=== PATIENT | female | born 1950 | race Caucasian/White ===

== ENCOUNTER 2018-06-25 08:06 | Emergency (ER) | payer OTHER ==
--- OUTSIDE RECORDS SUMMARY | 2018-06-25 08:09 | XMS REPORT | Clinical Summary ---
:1950 Author Organization [facility] Address [address] [place] [place] [address] Care Team Providers Name Role Phone Carlos Primary Care Provider Allergies Active Allergy Reactions Severity Noted Date Comments Other Converted from ECW; Sulfa - ; Sulfa (Sulfonamide Rash Low 12/28/2016 Antibiotics) Medications Medication Sig Dispensed Refills Start End Date Status Date evolocumab (REPATHA Inject 140 mg 0 Active SURECLICK) 140 mg/mL subcutaneously PnIj once every 2 weeks. biotin 1 mg tablet Take 1,000 mcg by 0 Active mouth daily. amitriptyline (ELAVIL) Take 25 mg by 0 Active 25 MG tablet mouth nightly. hydroCHLOROthiazide Take 25 mg by 0 Active (HYDRODIURIL) 25 MG mouth daily. tablet cholecalciferol, vitamin Take 2,000 Units 0 Active D3, 2,000 unit Tab by mouth daily. multivitamin per tablet Take 1 tablet by 0 Active mouth daily. cyanocobalamin (VITAMIN Take 1,000 mcg by 0 Active B-12) 1000 MCG tablet mouth daily. aspirin 81 MG EC tablet Take 81 mg by 0 Active mouth daily. pantoprazole (PROTONIX) Take 40 mg by 0 Active 40 MG tablet mouth daily. rosuvastatin (CRESTOR) Take 40 mg by 0 Active 40 MG tablet mouth daily. carvedilol (COREG) 25 MG Take 25 mg by 0 Active tablet mouth 2 (two) times daily with breakfast and dinner. metFORMIN (GLUCOPHAGE) Take 1,000 mg by 0 Active 1000 MG tablet mouth 2 (two) times daily with breakfast and dinner. gemfibrozil (LOPID) 600 Take 600 mg by 0 Active MG tablet mouth 2 (two) times daily. glipiZIDE (GLUCOTROL XL) Take 5 mg by mouth 0 Active 2.5 MG 24 hr tablet daily . ezetimibe (ZETIA) 10 mg Take 10 mg by 0 Active tablet mouth daily. SITagliptin (JANUVIA) 25 Take 25 mg by 0 Active MG tablet mouth daily. clopidogrel (PLAVIX) 75 Take 1 tablet (75 90 tablet 3 01/14/20 mg tablet mg total) by mouth 7 18 daily. Active Problems Problem Noted Date (aortic stenosis) 01/12/2017 Aortic stenosis 01/12/2017 Type II or unspecified type diabetes mellitus without mention of 12/05/2011 complication, not stated as uncontrolled Overview: Converted from ECW Coronary atherosclerosis of [place] coronary artery 12/05/2011 Overview: Converted from ECW Mixed hyperlipidemia 12/05/2011 Overview: Converted from ECW Unspecified essential hypertension 12/05/2011 Overview: Converted from ECW Vitamin D deficiency 11/16/2011 Overview: Converted from ECW UPDATED BY ICD10 SNOMED/IMO UPDATES Myalgia and myositis, unspecified 09/21/2010 Overview: Converted from ECW Chest pain, unspecified 09/08/2010 Overview: Converted from ECW Valvular heart disease Overview: Severe Aortic Stenosis Coronary artery disease Overview: s/p ACB x 3 01/04 Diabetes mellitus Overview: type 2 noninsulin dependent. COPD (chronic obstructive pulmonary disease) Osteoarthritis Obesity Hyperlipidemia Hypertension Severe aortic stenosis Family History Medical History Relation Name Comments Diabetes Brother Diabetes Father Heart attack Father Heart disease Father Hypertension Father Cancer Mother Relation Name Status Comments Brother Father Mother Social History Tobacco Use Types Packs/Day Years Used Date Passive Smoke Exposure - Never Smoker Smokeless Tobacco: Never Used Alcohol Use Drinks/Week oz/Week Comments No Sex Assigned at Date Recorded Not on file Job Start Date Occupation Industry Not on file Not on file Not on file Travel History Travel Start Travel End No recent travel history available. Last Filed Vital Signs Not on file Plan of Treatment Health Maintenance Due Date Last Done Comments INFLUENZA VACCINE 04/30/2018 Implants Implanted Type Area Special Needs Teacher Device Shelf Model / Identifier Expiration Serial / Date Lot Closure Sys Perclose Progl 6fr [id number] - [id number] Cardiovascular N/A: MARKS 05/30/2018 [id number] / Implanted: Qty: 1 on 01/12/2017 by Anuj Escamilla MD [facility] LAB:[facility] DEV / [id number] Salomon Karina 3 Transcatheter Heart Valve Valves N/A: SALOMON 2017 [id number] / Implanted: Qty: 1 on 01/12/2017 by Anuj Escamilla MD [employer] [id number] / Results Not on fileafter 06/24/2017 Insurance Payer Benefit Plan / Group Subscriber ID Type Phone Address MEDICARE MEDICARE A B xxxxxxxxxx Medicare OTHER-COMMERCIAL GENERIC COMMERCIAL xxxxxxxxxx (Work) [phone] Advance Directives For more information, please contact:[address] [phone] Code Status Date Activated Date Inactivated Comments Full Code 01/12/2017 6:10 AM 01/13/2017 5:55 PM This code status was determined by: Patient
--- OUTSIDE RECORDS SUMMARY | 2018-06-25 08:09 | XMS REPORT | Clinical Summary ---
:1950 Author Organization [facility] Address [address] [place] [address] Care Team Providers Name Role Phone Asked, No Pcp Primary Care Provider Unavailable Allergies Active Allergy Reactions Severity Noted Date Comments Sulfa (Sulfonamide Antibiotics) 06/02/2016 Medications Medication Sig Dispensed Refills Start Date End Date Status amitriptyline (ELAVIL) 25 TK 1 T PO D. 4 03/06/2016 Active MG tablet carvedilol (COREG) 25 MG 25 mg 2 (two) 0 05/19/2016 Active tablet times a day with meals. glyBURIDE (DIABETA) 2.5 MG TK 1 T PO QD 1 05/04/2016 Active tablet hydrochlorothiazide TK 1 TABLET BY 1 04/10/2016 Active (HYDRODIURIL) 25 MG tablet MOUTH ONCE A DAY metFORMIN (GLUCOPHAGE) 500 TK 1 T PO TWO 1 04/15/2016 Active MG tablet TIMES A DAY. metFORMIN (GLUCOPHAGE) TK 1 T PO TWO 1 03/07/2016 Active 1000 MG tablet TIMES A DAY. verapamil sustained Take 120 mg by 0 05/19/2016 Active release (CALAN-SR) 120 MG mouth 2 (two) SR tablet times a day. aspirin (ECOTRIN) 81 MG Take 1 tablet 0 Active enteric coated tablet every day by oral route. cholecalciferol, vitamin Vitamin D3 0 Active D3, (VITAMIN D3) 2,000 2,000 unit unit capsule capsule capsule pantoprazole (PROTONIX) 40 Take 40 mg by 0 Active MG EC tablet mouth daily. rosuvastatin (CRESTOR) 20 Take 20 mg by 0 Active MG tablet mouth nightly. biotin 1 mg tablet Take 1,000 mcg 0 Active by mouth daily. cyanocobalamin, vitamin Place 2,500 0 Active B-12, 5,000 mcg tablet, mcg under the sublingual tongue daily. cyanocobalamin 1000 MCG Take 5,000 mcg 0 Active tablet by mouth daily. Active Problems Problem Noted Date Aortic valve stenosis 06/02/2016 Chronic coronary artery disease 06/02/2016 Family History Medical History Relation Name Comments Heart disease Mother Coronary artery disease Other Unspecified Relation Relation Name Status Comments Mother Other Unspecified Relation Social History Tobacco Use Types Packs/Day Years Used Date Never Smoker Alcohol Use Drinks/Week oz/Week Comments No Sex Assigned at Date Recorded Not on file Job Start Date Occupation Industry Not on file Not on file Not on file Travel History Travel Start Travel End No recent travel history available. Last Filed Vital Signs Not on file Plan of Treatment Health Maintenance Due Date Last Done Comments BREAST CANCER SCREENING 01/18/1998 COLON CANCER SCREENING 01/18/1998 SHINGRIX VACCINE (1 of 2) 01/18/1998 ZOSTER VACCINE 2008 PNEUMOCOCCAL POLYSACCHARIDE VACCINE AGE 65 AND OVER 01/18/2013 PNEUMOCOCCAL-13 01/18/2013 INFLUENZA VACCINE 02/28/2018 Results Not on fileafter 06/24/2017 Insurance Payer Benefit Plan / Group Subscriber ID Type Phone Address MEDICARE MEDICARE PART A AND B xxxxxxxxxx Medicare [place], [place] COMMERCIAL MISC MISC COMMERCIAL xxxxxxxxxx Commercial Advance Directives Patient has advance care planning documents on file. For more information, please contact:[place] [address]
--- OUTSIDE RECORDS SUMMARY | 2018-06-25 08:09 | XMS REPORT ---
:1950 Author Organization [facility] Address [address] [place] [address] Care Team Providers Name Role Phone ANY PATRICIA Unavailable Unavailable Problems This patient has no known problems. Allergies, Adverse Reactions, Alerts This patient has no known allergies or adverse reactions. Medications This patient has no known medications. Results Test Description Test Time Test Comments Text Results Atomic Results Result Comments POCT-GLUCOSE METER 2017-01-13 12:53:00 Test Item Value Reference Range Comments POC-GLUCOSE METER (BEAKER) (test 202 mg/dL 70-110 TESTED AT [address] udbx=4769) [facility] [address] POCT-GLUCOSE [id number] 07:45:00 Test Item Value Reference Range Comments POC-GLUCOSE METER (BEAKER) 203 mg/dL 70-110 TESTED AT [address] (test zamf=6820) [facility] [address] BASIC METABOLIC [id number] 02:30:00 Test Item Value Reference Range Comments SODIUM (BEAKER) (test 141 meq/L 136-145 ljax=334) POTASSIUM (BEAKER) (test 4.5 meq/L 3.5-5.1 nhgk=139) CHLORIDE (BEAKER) (test 104 meq/L 98-107 iakg=091) CO2 (BEAKER) (test 26 meq/L 22-29 nsdr=392) BLOOD UREA NITROGEN 19 mg/dL 7-21 (BEAKER) (test hkyy=933) CREATININE (BEAKER) (test 0.99 mg/dL 0.57-1.25 yhbb=665) GLUCOSE RANDOM (BEAKER) 175 mg/dL 70-105 (test dmop=727) CALCIUM (BEAKER) (test 9.9 mg/dL 8.4-10.2 kmoi=318) EGFR (BEAKER) (test 56 mL/min/1.73 sq m ESTIMATED GFR IS NOT ebrx=0567) ACCURATE CREATININE CLEARANCE IN PREDICTING GLOMERULAR FILTRATION RATE. ESTIMATED GFR IS NOT APPLICABLE FOR DIALYSIS PATIENTS. CBC W/PLT COUNT & AUTO [id number] 02:18:00 Test Item Value Reference Range Comments WHITE BLOOD CELL COUNT (BEAKER) (test undp=546) 14.2 K/ L 4.0-10.0 RED BLOOD CELL COUNT (BEAKER) (test wmdf=921) 4.04 M/ L 4.00-5.00 HEMOGLOBIN (BEAKER) (test zkab=490) 11.6 GM/DL 12.0-15.0 HEMATOCRIT (BEAKER) (test rduj=003) 36.7 % 36.0-45.0 MEAN CORPUSCULAR VOLUME (BEAKER) (test fiub=297) 90.7 fL 82.0-99.0 MEAN CORPUSCULAR HEMOGLOBIN (BEAKER) (test 28.7 pg 27.0-33.0 fdyj=636) MEAN CORPUSCULAR HEMOGLOBIN CONC (BEAKER) (test 31.6 GM/DL 32.0-36.0 vjjt=253) RED CELL DISTRIBUTION WIDTH (BEAKER) (test 16.2 % 10.3-14.2 miis=128) PLATELET COUNT (BEAKER) (test ublz=776) 277 K/CU MM 150-430 MEAN PLATELET VOLUME (BEAKER) (test oneg=027) 7.8 fL 6.5-10.5 NUCLEATED RED BLOOD CELLS (BEAKER) (test 0 /100 WBC 0-0 rqel=182) NEUTROPHILS RELATIVE PERCENT (BEAKER) (test 85 % vwki=942) LYMPHOCYTES RELATIVE PERCENT (BEAKER) (test 8 % oxyo=555) MONOCYTES RELATIVE PERCENT (BEAKER) (test 7 % jfur=341) EOSINOPHILS RELATIVE PERCENT (BEAKER) (test 0 % azmx=180) BASOPHILS RELATIVE PERCENT (BEAKER) (test 0 % mhrj=643) NEUTROPHILS ABSOLUTE COUNT (BEAKER) (test 12.10 K/ L 1.80-8.00 nxtv=573) LYMPHOCYTES ABSOLUTE COUNT (BEAKER) (test 1.12 K/ L 1.48-4.50 empj=771) MONOCYTES ABSOLUTE COUNT (BEAKER) (test 0.95 K/ L 0.00-1.30 fuvm=917) EOSINOPHILS ABSOLUTE COUNT (BEAKER) (test 0.04 K/ L 0.00-0.50 fshn=184) BASOPHILS ABSOLUTE COUNT (BEAKER) (test 0.02 K/ L 0.00-0.20 xxnl=060) 0.00POCT-GLUCOSE [id number] 22:03:00 Test Item Value Reference Range Comments POC-GLUCOSE METER (BEAKER) 273 mg/dL 70-110 TESTED AT [address] (test eono=4496) [facility] [address] POCT-GLUCOSE [id number] 18:16:00 Test Item Value Reference Range Comments POC-GLUCOSE METER (BEAKER) 239 mg/dL 70-110 TESTED AT [address] (test lkdp=5015) [facility] [address] POCT-GLUCOSE [id number] 14:05:00 Test Item Value Reference Range Comments POC-GLUCOSE METER (BEAKER) 248 mg/dL 70-110 TESTED AT [address] (test xisc=2523) [facility] [address] SODIUM NA-STAT [id number] 10:03:00 Test Item Value Reference Range Comments SODIUM (BEAKER) (test kefh=391) 137 meq/L 135-148 POTASSIUM-STAT [id number] 10:03:00 Test Item Value Reference Range Comments POTASSIUM (BEAKER) (test gjtb=897) 3.8 meq/L 3.6-5.5 BLOOD GAS, [id number] 10:03:00 Test Item Value Reference Range Comments PH ARTERIAL (BEAKER) (test mdxn=246) 7.35 7.35-7.45 PCO2 ARTERIAL (BEAKER) (test oyvo=833) 46 mmHg 35-45 PO2 ARTERIAL (BEAKER) (test enrk=515) 169 mmHg 80-90 O2 SATURATION ARTERIAL (BEAKER) (test tmeb=443) 99.1 % 96.0-97.0 HCO3 ARTERIAL (BEAKER) (test jflw=436) 26 mmol/L 21-29 BASE EXCESS ARTERIAL (BEAKER) (test zxuj=299) -0.6 mmol/L -2.0-3.0 PATIENT TEMPERATURE (BEAKER) (test piki=2456) 35.6 C FIO2 (BEAKER) (test huyd=8232) 100.0 % GLUCOSE-STAT [id number] 10:03:00 Test Item Value Reference Range Comments GLUCOSE RANDOM (BEAKER) (test svur=940) 174 mg/dL 70-110 HGB/HCT (H&H) - STAT [id number] 10:03:00 Test Item Value Reference Range Comments HEMOGLOBIN (BEAKER) (test ievl=015) 9.6 g/dL 12.0-15.0 HEMATOCRIT (BEAKER) (test luer=777) 28.0 % 36.0-45.0 [id number] 09:50:00 Test Item Value Reference Range Comments ACTIVATED CLOTTING TIME 204 sec [facility] AT [facility] [address] [facility] ([facility] (test usbu=941) [facility] [address] B-TYPE NATRIURETIC FACTOR (BNP)2017-01-09 11:46:00 Test Item Value Reference Range Comments B-TYPE NATRIURETIC PEPTIDE (BEAKER) (test 155 pg/mL 0-100 dscd=028) BASIC METABOLIC [id number] 11:41:00 Test Item Value Reference Range Comments SODIUM (BEAKER) (test 139 meq/L 136-145 mlty=855) POTASSIUM (BEAKER) (test 4.3 meq/L 3.5-5.1 ojvo=970) CHLORIDE (BEAKER) (test 102 meq/L 98-107 sarh=619) CO2 (BEAKER) (test 26 meq/L 22-29 izvt=876) BLOOD UREA NITROGEN 21 mg/dL 7-21 (BEAKER) (test mraz=341) CREATININE (BEAKER) (test 1.02 mg/dL 0.57-1.25 ylxf=233) GLUCOSE RANDOM (BEAKER) 215 mg/dL 70-105 (test akdr=620) CALCIUM (BEAKER) (test 10.0 mg/dL 8.4-10.2 wflw=212) EGFR (BEAKER) (test 54 mL/min/1.73 sq m ESTIMATED GFR IS NOT tnkn=7566) ACCURATE CREATININE CLEARANCE IN PREDICTING GLOMERULAR FILTRATION RATE. ESTIMATED GFR IS NOT APPLICABLE FOR DIALYSIS PATIENTS. [id number] 11:41:00 Test Item Value Reference Range Comments ALBUMIN (BEAKER) (test yyku=0397) 4.2 g/dL 3.5-5.0 PROTHROMBIN [id number] 11:24:00 Test Item Value Reference Range Comments PROTIME (BEAKER) (test izlx=206) 13.5 seconds 11.7-14.7 INR (BEAKER) (test kvst=960) 1.0 <=5.9 RECOMMENDED COUMADIN/WARFARIN INR THERAPY RANGESSTANDARD DOSE: 2.0 - 3.0 Includes: PROPHYLAXIS forvenous thrombosis, systemic embolization; TREATMENT for venous thrombosis and/or pulmonary embolus.HIGH RISK: Target INR is 2.5-3.5 for patients with mechanical heart valves.CBC W/PLT COUNT & AUTO [id number] 11:19:00 Test Item Value Reference Range Comments WHITE BLOOD CELL COUNT (BEAKER) (test bsgn=797) 7.6 K/ L 4.0-10.0 RED BLOOD CELL COUNT (BEAKER) (test xmsc=275) 4.09 M/ L 4.00-5.00 HEMOGLOBIN (BEAKER) (test qpuc=102) 11.9 GM/DL 12.0-15.0 HEMATOCRIT (BEAKER) (test jumd=968) 37.0 % 36.0-45.0 MEAN CORPUSCULAR VOLUME (BEAKER) (test rjym=423) 90.4 fL 82.0-99.0 MEAN CORPUSCULAR HEMOGLOBIN (BEAKER) (test 29.1 pg 27.0-33.0 knue=192) MEAN CORPUSCULAR HEMOGLOBIN CONC (BEAKER) (test 32.2 GM/DL 32.0-36.0 lzot=080) RED CELL DISTRIBUTION WIDTH (BEAKER) (test 14.5 % 10.3-14.2 hjea=183) PLATELET COUNT (BEAKER) (test rhgv=061) 267 K/CU MM 150-430 MEAN PLATELET VOLUME (BEAKER) (test ebwt=008) 7.8 fL 6.5-10.5 NUCLEATED RED BLOOD CELLS (BEAKER) (test 0 /100 WBC 0-0 nhbc=563) NEUTROPHILS RELATIVE PERCENT (BEAKER) (test 67 % luhe=352) LYMPHOCYTES RELATIVE PERCENT (BEAKER) (test 20 % yypw=778) MONOCYTES RELATIVE PERCENT (BEAKER) (test 9 % elre=034) EOSINOPHILS RELATIVE PERCENT (BEAKER) (test 3 % oaqw=048) BASOPHILS RELATIVE PERCENT (BEAKER) (test 1 % kjel=558) NEUTROPHILS ABSOLUTE COUNT (BEAKER) (test 5.06 K/ L 1.80-8.00 cqcr=527) LYMPHOCYTES ABSOLUTE COUNT (BEAKER) (test 1.54 K/ L 1.48-4.50 qfkf=965) MONOCYTES ABSOLUTE COUNT (BEAKER) (test 0.71 K/ L 0.00-1.30 ncei=940) EOSINOPHILS ABSOLUTE COUNT (BEAKER) (test 0.24 K/ L 0.00-0.50 vkwy=537) BASOPHILS ABSOLUTE COUNT (BEAKER) (test 0.06 K/ L 0.00-0.20 qgyk=274) [id number] 10:57:00 Test Item Value Reference Range Comments POC-CREATININE (BEAKER) 0.8 mg/dL 0.6-1.3 TESTED AT [facility] [address] [facility] (test cqzb=0134) [facility] [address] POC-EGFR (BEAKER) (test 71 mL/min/1.73M2 mmwc=8240)
[2018-06-25] MEDS ORDERED: ONDANSETRON 4 MG/2 ML VIAL ONE (08:31)
[2018-06-25] MEDS ORDERED: MEPERIDINE HCL 25 MG/0.5 ML ONE (08:31)
[2018-06-25 09:00] LABS: Absolute Lymphocytes (CBC) 1.6 K/uL (0.7-4.9); Absolute Monocytes 0.6 K/uL (0.1-1.3); Basophils % 0.6 % (0-1.3); Eosinophils % 2.6 % (0-4.4); Hematocrit 36.5 % (36.0-45.0); Lymphocytes % 19.2 % (15.3-44.8); MCH 28.7 pg (27.0-35.0); MCV 84.9 fL (80-100); MPV 8.5 fL (7.6-11.3); Monocytes % 7.4 % (3.3-12.3); RBC Red Blood Cell Count 4.29 M/uL (3.86-4.86)
[2018-06-25 09:08] LABS: Urine Bacteria NONE SEEN /HPF (<20); Urine Culture Reflex Order NOT NEEDED; Urine RBC <5 /HPF (NONE SEEN)
[2018-06-25 09:13] LABS: ALT/SGPT 33 U/L (12-78); AST/SGOT 18 U/L (15-37); Albumin 4.2 g/dL (3.4-5.0); Alkaline Phosphatase 87 U/L (45-117); BUN Blood Urea Nitrogen 15 mg/dL (7-18); Bicarbonate 32 mmol/L (21-32); Bilirubin Direct < 0.1 mg/dL (0-0.2); Bilirubin Total 0.3 mg/dL (0.2-1.0); Glucose Level 169 mg/dL (74-106); Lipase 103 U/L (73-393); Potassium 4.1 mmol/L (3.5-5.1); Sodium Level 138 mmol/L (136-145)
[2018-06-25 10:15] LABS: Urine Blood NEGATIVE (NEG); Urine Glucose NEGATIVE (NEG); Urine Protein NEGATIVE (NEG); Urine pH 6.5 (5.0-7.0)
[2018-06-25 10:15] LABS: Urine Specific Gravity >1.030 (1.005-1.030)
--- NOTE | 2018-06-25 10:42 | RAD REPORT ---
EXAM DESCRIPTION: CTAbdomen Pelvis W Contrast - 06/25/2018 10:30 am CLINICAL HISTORY: Abdominal pain. ABD PAIN COMPARISON: No comparisons TECHNIQUE: Biphasic CT imaging of the abdomen and pelvis was performed with 100 ml non-ionic IV cont rast. All CT scans are performed using dose optimization technique as appropriate and may include automated exposure control or mA/KV adjustment according to patient size. FINDINGS: The lung bases are clear. The liver demonstrates diffuse fatty infiltration. The spleen, pancreas, adrenal glands and kidneys a re within normal limits. No bowel obstruction, free air, free fluid or abscess. Sigmoid diverticulosis is present without dive rticulitis. The appendix is not identified as a discrete structure, however, no secondary findings of appendicitis are identified. No evidence of significant lymphadenopathy. Moderate lumbosacral degenerative changes. IMPRESSION: No acute intra-abdominal or pelvic finding. Prominent sigmoid diverticulosis coli without diverticulitis. Fatty liver.
--- NOTE | 2018-06-25 11:32 | EDPHYS ---
Physician Documentation [facility] Name: Margo Valdovinos Age: 68 yrs Sex: Female : 1950 Arrival Date: 06/25/2018 Time: 08:09 Bed 7 Private MD: None, None ED Physician Kevin Cotter HPI: 06/25 08:19 This 68 yrs old Female presents to ER via Ambulatory with complaints of rn Abdominal Pain, Back Pain. 08:19 The patient presents with abdominal pain right lower quadrant. Onset: The rn symptoms/episode began/occurred 3 day(s) ago. The symptoms do not radiate. Associated signs and symptoms: Pertinent positives: nausea, Pertinent negatives: anorexia, diarrhea, dysuria, fever, hematuria, shortness of breath, vomiting, vomiting blood. The symptoms are described as sharp, stabbing. Modifying factors: The symptoms are alleviated by nothing, the symptoms are aggravated by nothing. Severity of pain: At its worst the pain was moderate in the emergency department the pain is unchanged. The patient has not experienced similar symptoms in the past. Reports abd pain, RLQ, and right flank, began 2-3 days ago, constant but worsens in waves, + nausea, no urinary symptoms, no vomiting/diarrhea, similar episode in past with diverticulitis, no hx of kidney stone. Came back this morning. . Historical: - Allergies: 08:15 Sulfa (Sulfonamide Antibiotics); iw - Home Meds: 08:53 biotin 1,000 mcg oral chew [Active]; Vitamin B-12 Oral [Active]; aspirin 81 mg Oral jl7 TbEC 1 tab once daily [Active]; carvedilol 25 mg oral tab 1 tab 2 times per day [Active]; ezetimibe oral oral [Active]; gemfibrozil 600 mg Oral tab 1 tab 2 times per day [Active]; glipizide 5 mg Oral tab [Active]; Hydrochlorothiazide Oral [Active]; metformin 1,000 mg Oral tab 1 tab 2 times per day [Active]; pantoprazole 40 mg oral TbEC 1 tab once daily [Active]; rosuvastatin 40 mg oral tab 1 tab once daily [Active]; amitriptyline 25 mg Oral tab 1 tab once daily [Active]; clopidogrel 75 mg oral tab 1 tab once daily [Active]; Insulin: Humulin N Sub-Q [Active]; - PMHx: 08:53 Hypertension; Diabetes - NIDDM; Hyperlipidemia; jl7 - PSHx: 08:15 CABG; Hysterectomy; breast reduction; Tonsillectomy; iw - Immunization history:: Adult Immunizations up to date. - Social history:: Smoking status: Patient/guardian denies using tobacco. - Ebola Screening: : Patient negative for fever greater than or equal to 101.5 degrees Fahrenheit, and additional compatible Ebola Virus Disease symptoms Patient denies exposure to infectious person Patient denies travel to an Ebola-affected area in the 21 days before illness onset No symptoms or risks identified at this time. - Family history:: not pertinent. - Hospitalizations: : No recent hospitalization is reported. ROS: 08:19 Constitutional: Negative for fever, chills, and weight loss, Eyes: Negative for injury, rn pain, redness, and discharge, Cardiovascular: Negative for chest pain, palpitations, and edema, Respiratory: Negative for shortness of breath, cough, wheezing, and pleuritic chest pain, Abdomen/GI: + abd pain/nausea, no diarrhea/vomiting Back: + right flank pain : Negative for injury, bleeding, discharge, and swelling, MS/Extremity: Negative for injury and deformity, Skin: Negative for injury, rash, and discoloration, Neuro: Negative for headache, weakness, numbness, tingling, and seizure. Exam: 08:19 Constitutional: This is a well developed, well nourished patient who is awake, alert, rn and in no acute distress. Head/Face: Normocephalic, atraumatic. ENT: MMM Cardiovascular: Regular rate and rhythm, No pulse deficits. Respiratory: No increased work of breathing, no retractions or nasal flaring. Abdomen/GI: soft, mild right sided abd tenderness, no rebound/guarding Back: No spinal tenderness. MS/ Extremity: Pulses equal, no cyanosis. Neurovascular intact. Full, normal range of motion. Equal circumference. Neuro: Awake and alert, GCS 15, oriented to person, place, time, and situation. Cranial nerves II-XII grossly intact. Motor strength 5/5 in all extremities. Sensory grossly intact. Cerebellar exam normal. Normal gait. Vital Signs: 08:53 BP 178 / 59; Pulse 60; Resp 16 S; Temp 97.7(O); Pulse Ox 95% on R/A; Weight 79.83 kg jl7 (R); Pain 8/10; 09:30 BP 174 / 61; Pulse 60; Resp 16; Pulse Ox 97% ; Pain 7/10; jl7 10:15 BP 161 / 56; Pulse 57; Resp 18; Pulse Ox 95% ; Pain 5/10; jl7 11:59 BP 159 / 62; Pulse 60; Resp 16 S; Pulse Ox 97% on R/A; jl7 MDM: 08:10 Patient medically screened. rn 11:29 Differential diagnosis: appendicitis, bowel obstruction, diverticulitis, gastritis, rn gastroesophageal reflux disease, non-specific abd pain, pancreatitis, Pyelonephritis, Ureterolithiasis, urinary tract infection. Data reviewed: vital signs, nurses notes, lab test result(s), radiologic studies, CT scan, and as a result, I will discharge patient. Counseling: I had a detailed discussion with the patient and/or guardian regarding: the historical points, exam findings, and any diagnostic results supporting the discharge/admit diagnosis, lab results, radiology results, the need for outpatient follow up, to return to the emergency department if symptoms worsen or persist or if there are any questions or concerns that arise at home. Response to treatment: the patient's symptoms have mildly improved after treatment, and as a result, I will discharge patient. Special discussion: Based on the patient's Hx, exam, and Dx evaluation, there is no indication for emergent surgery or inpatient Tx. It is understood by the patient/guardian that if the Sx's persist or worsen they need to return immediately for re-evaluation. I discussed with the patient/guardian in detail that at this point there is no indication for admission to the hospital. It is understood, however, that if the symptoms persist or worsen the patient needs to return immediately for re-evaluation. Based on the history and exam findings, there is no indication for further emergent testing or inpatient evaluation. I discussed with the patient/guardian the need to see the primary care provider for further evaluation of the symptoms. ED course: NOrmal bloodwork and ct abdomen, will dc home with prn zofran/pain meds/abx for possible early diverticulitis and pcp f/u. . 06/25 08:19 Order name: Basic Metabolic Panel; Complete Time: :22 rn 06/25 08:19 Order name: CBC with Diff; Complete Time: 09:22 rn 06/25 08:19 Order name: Hepatic Function; Complete Time: 09: rn 06/25 08:19 Order name: Lipase; Complete Time: 09: rn 06/25 08:40 Order name: Urine Microscopic Only; Complete Time: 09:22 rn 06/25 10:02 Order name: Urine Dipstick--Ancillary (enter results); Complete Time: 10:21 06/25 08:19 Order name: IV Saline Lock; Complete Time: 08:42 rn 06/25 08:19 Order name: CT Abd/Pelvis - W/Contrast; Complete Time: 10:55 rn 06/25 10:03 Order name: Urine --Ancillary (enter results); Complete Time: 10: 06/25 08:19 Order name: Labs collected and sent; Complete Time: 08:42 rn 06/25 08:40 Order name: Urine Dipstick-Ancillary (obtain specimen); Complete Time: 09:10 rn Administered Medications: 08:38 Drug: Zofran 4 mg Route: IVP; Site: left antecubital; jl7 09:00 Follow up: Response: No adverse reaction; Nausea is decreased jl7 08:41 Drug: Demerol - Meperidine 12.5 mg Route: IVP; Site: left antecubital; jl7 09:00 Follow up: Response: No adverse reaction; Pain is decreased jl7 11:57 Drug: Flagyl 500 mg Route: PO; jl7 11:59 Follow up: Response: Medication administered at discharge. jl7 11:58 Drug: [place] 10 mg-325 mg 1 tabs Route: PO; jl7 11:59 Follow up: Response: Medication administered at discharge. jl7 11:58 Drug: Cipro 500 mg Route: PO; jl7 11:59 Follow up: Response: Medication administered at discharge. jl7 Disposition: 06/25/18 11:31 Discharged to Home. Impression: Lower abdominal pain, unspecified, Diverticulosis of large intestine without perforation or abscess without bleeding. - Condition is Stable. - Discharge Instructions: Abdominal Pain, Adult, Diverticulosis, Pain Without a Known Cause. - Prescriptions for Zofran ODT 4 mg Oral tablet,disintegrating - place 1 tablet by TRANSLINGUAL route every 8 hours As needed; 20 tablet. Flagyl 500 mg Oral Tablet - take 1 tablet by ORAL route every 8 hours for 10 days; 30 tablet. Tylenol- Codeine #3 300-30 mg Oral Tablet - take 1 tablet by ORAL route every 6 hours As needed; 15 tablet. Cipro 500 mg Oral Tablet - take 1 tablet by ORAL route every 12 hours for 10 days; 20 tablet. - Medication Reconciliation Form, Thank You Letter, Antibiotic Education, Prescription Opioid Use form. - Follow up: Private Physician; When: 2 - 3 days; Reason: Recheck today's complaints, Re-evaluation by your physician. - Problem is new. - Symptoms have improved. Signatures: Dispatcher [employer] EDMS Estefany Gil RN RN iw Nieto, Roman, MD MD rn Leal, Jahala, RN RN jl7 Corrections: (The following items were deleted from the chart) 12:01 11:31 06/25/2018 11:31 Discharged to Home. Impression: Lower abdominal pain, jl7 unspecified; Diverticulosis of large intestine without perforation or abscess without bleeding. Condition is Stable. Forms are Medication Reconciliation Form, Thank You Letter, Antibiotic Education, Prescription Opioid Use. Follow up: Private Physician; When: 2 - 3 days; Reason: Recheck today's complaints, Re-evaluation by your physician. Problem is new. Symptoms have improved. rn
--- NOTE | 2018-06-25 11:32 | ER ---
Nurse's Notes [facility] Name: Margo Valdovinos Age: 68 yrs Sex: Female : 1950 Arrival Date: 06/25/2018 Time: 08:09 Bed 7 Private MD: None, None Diagnosis: Lower abdominal pain, unspecified;Diverticulosis of large intestine without perforation or abscess without bleeding Presentation: 06/25 08:13 Presenting complaint: Patient states: has had RLQ pain radiating to groin since iw Monday, pain also radiates to right flank, denies pain/burning with urination, denies blood in urine, no hx of kidney stones, normal BM this morning, hx of diverticulitis. Transition of care: patient was not received from another setting of care. Onset of symptoms was June 23, 2018. Risk Assessment: Do you want to hurt yourself or someone else? Patient reports no desire to harm self or others. Initial Sepsis Screen: Does the patient meet any 2 criteria? No. Patient's initial sepsis screen is negative. Does the patient have a suspected source of infection? No. Patient's initial sepsis screen is negative. Care prior to arrival: None. 08:13 Method Of Arrival: Ambulatory iw 08:13 Acuity: NATALI 3 iw Historical: - Allergies: 08:15 Sulfa (Sulfonamide Antibiotics); iw - Home Meds: 08:53 biotin 1,000 mcg oral chew [Active]; Vitamin B-12 Oral [Active]; aspirin 81 mg Oral jl7 TbEC 1 tab once daily [Active]; carvedilol 25 mg oral tab 1 tab 2 times per day [Active]; ezetimibe oral oral [Active]; gemfibrozil 600 mg Oral tab 1 tab 2 times per day [Active]; glipizide 5 mg Oral tab [Active]; Hydrochlorothiazide Oral [Active]; metformin 1,000 mg Oral tab 1 tab 2 times per day [Active]; pantoprazole 40 mg oral TbEC 1 tab once daily [Active]; rosuvastatin 40 mg oral tab 1 tab once daily [Active]; amitriptyline 25 mg Oral tab 1 tab once daily [Active]; clopidogrel 75 mg oral tab 1 tab once daily [Active]; Insulin: Humulin N Sub-Q [Active]; - PMHx: 08:53 Hypertension; Diabetes - NIDDM; Hyperlipidemia; jl7 - PSHx: 08:15 CABG; Hysterectomy; breast reduction; Tonsillectomy; iw - Immunization history:: Adult Immunizations up to date. - Social history:: Smoking status: Patient/guardian denies using tobacco. - Ebola Screening: : Patient negative for fever greater than or equal to 101.5 degrees Fahrenheit, and additional compatible Ebola Virus Disease symptoms Patient denies exposure to infectious person Patient denies travel to an Ebola-affected area in the 21 days before illness onset No symptoms or risks identified at this time. - Family history:: not pertinent. - Hospitalizations: : No recent hospitalization is reported. Screenin:35 Abuse screen: Denies threats or abuse. Denies injuries from another. Nutritional jl7 screening: No deficits noted. Tuberculosis screening: No symptoms or risk factors identified. Fall Risk IV access (20 points). Assessment: 08:35 General: Appears in no apparent distress. uncomfortable, Behavior is calm, cooperative, jl7 appropriate for age. Pain: Complains of pain in right flank Pain radiates to suprapubic area, left lower quadrant and groin Pain currently is 8 out of 10 on a pain scale. Neuro: Level of Consciousness is awake, alert, obeys commands, Oriented to person, place, time, situation. Cardiovascular: Patient's skin is warm and dry. Respiratory: Airway is patent Respiratory effort is even, unlabored, Respiratory pattern is regular, symmetrical. GI: Abdomen is round non-distended, Bowel sounds present X 4 quads. Abd is soft and non tender. : Urine is cloudy. EENT: No signs and/or symptoms were reported regarding the EENT system. Derm: Skin is pink, warm \T\ dry. Musculoskeletal: No signs and/or symptoms reported regarding the musculoskeletal system. 08:50 Reassessment: Pt finished drinking oral contrast, CT notified. jl7 10:22 Reassessment: Patient appears in no apparent distress at this time. Patient and/or jl7 family updated on plan of care and expected duration. Pain level reassessed. Patient is alert, oriented x 3, equal unlabored respirations, skin warm/dry/pink. Vital Signs: 08:53 BP 178 / 59; Pulse 60; Resp 16 S; Temp 97.7(O); Pulse Ox 95% on R/A; Weight 79.83 kg jl7 (R); Pain 8/10; 09:30 BP 174 / 61; Pulse 60; Resp 16; Pulse Ox 97% ; Pain 7/10; jl7 10:15 BP 161 / 56; Pulse 57; Resp 18; Pulse Ox 95% ; Pain 5/10; jl7 11:59 BP 159 / 62; Pulse 60; Resp 16 S; Pulse Ox 97% on R/A; jl7 ED Course: 08:09 Patient arrived in ED. sb2 08:09 None, None is Private Physician. sb2 08:10 Corbin Tavares, RN is Primary Nurse. jl7 08:10 Kevin Cotter MD is Attending Physician. rn 08:15 Triage completed. iw 08:15 Arm band placed on. iw 08:35 Patient has correct armband on for positive identification. Placed in gown. Bed in low jl7 position. Call light in reach. Side rails up X2. Pulse ox on. NIBP on. 08:42 Inserted saline lock: 20 gauge in left antecubital area, using aseptic technique. Blood gm collected. 08:47 Initial lab(s) drawn, by me, sent to lab. Urine collected: clean catch specimen, cloudy.gm 10:32 CT Abd/Pelvis - W/Contrast In Process Unspecified. EDMS 12:00 No provider procedures requiring assistance completed. IV discontinued, intact, jl7 bleeding controlled, No redness/swelling at site. Pressure dressing applied. Administered Medications: 08:38 Drug: Zofran 4 mg Route: IVP; Site: left antecubital; jl7 09:00 Follow up: Response: No adverse reaction; Nausea is decreased jl7 08:41 Drug: Demerol - Meperidine 12.5 mg Route: IVP; Site: left antecubital; jl7 09:00 Follow up: Response: No adverse reaction; Pain is decreased jl7 11:57 Drug: Flagyl 500 mg Route: PO; jl7 11:59 Follow up: Response: Medication administered at discharge. jl7 11:58 Drug: [place] 10 mg-325 mg 1 tabs Route: PO; jl7 11:59 Follow up: Response: Medication administered at discharge. jl7 11:58 Drug: Cipro 500 mg Route: PO; jl7 11:59 Follow up: Response: Medication administered at discharge. jl7 Outcome: 11:31 Discharge ordered by . rn 12:00 Discharged to home ambulatory. jl7 12:00 Condition: stable 12:00 Discharge instructions given to patient, family, Instructed on discharge instructions, follow up and referral plans. medication usage, Demonstrated understanding of instructions, follow-up care, medications, Prescriptions given X 4. 12:01 Patient left the ED. jl7 Signatures: Dispatcher [employer] EDEstefany Jackman RN RN iw Nieto, Roman, MD MD rn Leal, Jahala, RN RN jl7 Ashley Gee Gabriella gm
[2018-06-25] MEDS ORDERED: HYDROCODONE/APAP 10/325 TAB ONE (11:59)
[2018-06-25] MEDS ORDERED: metroNIDAZOLE 500 MG TABLET ONE (11:59)
[2018-06-25] MEDS ORDERED: CIPROFLOXACIN HCL 500 MG TAB ONE (12:00)
== END 2018-06-25 12:01 | disposition home or self-care (01) ==
LOC: ER 08:06
DX: K57.90 Diverticulosis of intestine, part unspecified, without perforation or abscess without bleeding (principal); I10 Essential (primary) hypertension; E11.9 Type 2 diabetes mellitus without complications; Z79.82 Long term (current) use of aspirin; Z79.4 Long term (current) use of insulin; Z95.1 Presence of aortocoronary bypass graft
CPT/HCPCS: 36415; 74177; 80048; 80076; 81025; 83690; 85025; 96374; 96375; 99284; J2175; J2405; Q9967; 81003; 81015

== ENCOUNTER 2018-06-26 13:58 | Emergency (ER) | payer OTHER ==
--- OUTSIDE RECORDS SUMMARY | 2018-06-26 14:32 | XMS REPORT ---
:1950 Author Organization [facility] Address [address] [place] [address] Care Team Providers Name Role Phone ANY [...] (BEAKER) (test 202 mg/dL 70-110 TESTED AT [address] rrvv=8745) [facility] [address] POCT-GLUCOSE [id number] 07:45:00 Test Item Value Reference Range Comments POC-GLUCOSE METER (BEAKER) 203 mg/dL 70-110 TESTED AT [address] (test czod=7080) [facility] [address] BASIC METABOLIC [id number] 02:30:00 Test Item Value Reference Range Comments SODIUM (BEAKER) (test 141 meq/L 136-145 ysol=483) POTASSIUM (BEAKER) (test 4.5 meq/L 3.5-5.1 yxkz=464) CHLORIDE (BEAKER) (test 104 meq/L 98-107 lhmq=649) CO2 (BEAKER) (test 26 meq/L 22-29 mzto=644) BLOOD UREA NITROGEN 19 mg/dL 7-21 (BEAKER) (test beob=224) CREATININE (BEAKER) (test 0.99 mg/dL 0.57-1.25 gnet=314) GLUCOSE RANDOM (BEAKER) 175 mg/dL 70-105 (test uylr=651) CALCIUM (BEAKER) (test 9.9 mg/dL 8.4-10.2 jmlq=050) EGFR (BEAKER) (test 56 mL/min/1.73 sq m ESTIMATED GFR IS NOT qpum=7193) ACCURATE CREATININE CLEARANCE IN PREDICTING GLOMERULAR FILTRATION RATE. ESTIMATED GFR IS NOT APPLICABLE FOR DIALYSIS PATIENTS. CBC W/PLT COUNT & AUTO [id number] 02:18:00 Test Item Value Reference Range Comments WHITE BLOOD CELL COUNT (BEAKER) (test laey=980) 14.2 K/ L 4.0-10.0 RED BLOOD CELL COUNT (BEAKER) (test spnf=578) 4.04 M/ L 4.00-5.00 HEMOGLOBIN (BEAKER) (test qcij=828) 11.6 GM/DL 12.0-15.0 HEMATOCRIT (BEAKER) (test oqht=292) 36.7 % 36.0-45.0 MEAN CORPUSCULAR VOLUME (BEAKER) (test eghp=253) 90.7 fL 82.0-99.0 MEAN CORPUSCULAR HEMOGLOBIN (BEAKER) (test 28.7 pg 27.0-33.0 vnfx=426) MEAN CORPUSCULAR HEMOGLOBIN CONC (BEAKER) (test 31.6 GM/DL 32.0-36.0 srrq=041) RED CELL DISTRIBUTION WIDTH (BEAKER) (test 16.2 % 10.3-14.2 oeoc=031) PLATELET COUNT (BEAKER) (test qbtn=718) 277 K/CU MM 150-430 MEAN PLATELET VOLUME (BEAKER) (test njkc=173) 7.8 fL 6.5-10.5 NUCLEATED RED BLOOD CELLS (BEAKER) (test 0 /100 WBC 0-0 ynxa=878) NEUTROPHILS RELATIVE PERCENT (BEAKER) (test 85 % bosm=698) LYMPHOCYTES RELATIVE PERCENT (BEAKER) (test 8 % xxay=302) MONOCYTES RELATIVE PERCENT (BEAKER) (test 7 % lqra=922) EOSINOPHILS RELATIVE PERCENT (BEAKER) (test 0 % hkev=714) BASOPHILS RELATIVE PERCENT (BEAKER) (test 0 % pljo=670) NEUTROPHILS ABSOLUTE COUNT (BEAKER) (test 12.10 K/ L 1.80-8.00 cuee=513) LYMPHOCYTES ABSOLUTE COUNT (BEAKER) (test 1.12 K/ L 1.48-4.50 mlnl=941) MONOCYTES ABSOLUTE COUNT (BEAKER) (test 0.95 K/ L 0.00-1.30 agrd=571) EOSINOPHILS ABSOLUTE COUNT (BEAKER) (test 0.04 K/ L 0.00-0.50 jcnr=977) BASOPHILS ABSOLUTE COUNT (BEAKER) (test 0.02 K/ L 0.00-0.20 wwva=329) 0.00POCT-GLUCOSE [id number] 22:03:00 Test Item Value Reference Range Comments POC-GLUCOSE METER (BEAKER) 273 mg/dL 70-110 TESTED AT [address] (test hazx=0000) [facility] [address] POCT-GLUCOSE [id number] 18:16:00 Test Item Value Reference Range Comments POC-GLUCOSE METER (BEAKER) 239 mg/dL 70-110 TESTED AT [address] (test xjxl=4419) [facility] [address] POCT-GLUCOSE [id number] 14:05:00 Test Item Value Reference Range Comments POC-GLUCOSE METER (BEAKER) 248 mg/dL 70-110 TESTED AT [address] (test sskq=6235) [facility] [address] SODIUM NA-STAT [id number] 10:03:00 Test Item Value Reference Range Comments SODIUM (BEAKER) (test gtux=045) 137 meq/L 135-148 POTASSIUM-STAT [id number] 10:03:00 Test Item Value Reference Range Comments POTASSIUM (BEAKER) (test xurz=602) 3.8 meq/L 3.6-5.5 BLOOD GAS, [id number] 10:03:00 Test Item Value Reference Range Comments PH ARTERIAL (BEAKER) (test tklf=955) 7.35 7.35-7.45 PCO2 ARTERIAL (BEAKER) (test mduf=076) 46 mmHg 35-45 PO2 ARTERIAL (BEAKER) (test bjbm=926) 169 mmHg 80-90 O2 SATURATION ARTERIAL (BEAKER) (test zdgd=460) 99.1 % 96.0-97.0 HCO3 ARTERIAL (BEAKER) (test gife=102) 26 mmol/L 21-29 BASE EXCESS ARTERIAL (BEAKER) (test ynjv=642) -0.6 mmol/L -2.0-3.0 PATIENT TEMPERATURE (BEAKER) (test ggnr=1871) 35.6 C FIO2 (BEAKER) (test viqo=5916) 100.0 % GLUCOSE-STAT [id number] 10:03:00 Test Item Value Reference Range Comments GLUCOSE RANDOM (BEAKER) (test xkxy=349) 174 mg/dL 70-110 HGB/HCT (H&H) - STAT [id number] 10:03:00 Test Item Value Reference Range Comments HEMOGLOBIN (BEAKER) (test jojb=395) 9.6 g/dL 12.0-15.0 HEMATOCRIT (BEAKER) (test eeix=928) 28.0 % 36.0-45.0 [id number] 09:50:00 Test Item Value Reference Range Comments ACTIVATED CLOTTING TIME 204 sec [facility] (BEAK[facility] (test bono=881) [facility] [address] B-TYPE NATRIURETIC FACTOR (BNP)2017-01-09 11:46:00 Test Item Value Reference Range Comments B-TYPE NATRIURETIC PEPTIDE (BEAKER) (test 155 pg/mL 0-100 blvh=481) BASIC METABOLIC [id number] 11:41:00 Test Item Value Reference Range Comments SODIUM (BEAKER) (test 139 meq/L 136-145 xyok=810) POTASSIUM (BEAKER) (test 4.3 meq/L 3.5-5.1 nede=674) CHLORIDE (BEAKER) (test 102 meq/L 98-107 pcaw=717) CO2 (BEAKER) (test 26 meq/L 22-29 vbbq=746) BLOOD UREA NITROGEN 21 mg/dL 7-21 (BEAKER) (test rlxm=402) CREATININE (BEAKER) (test 1.02 mg/dL 0.57-1.25 zfdv=715) GLUCOSE RANDOM (BEAKER) 215 mg/dL 70-105 (test dqgj=891) CALCIUM (BEAKER) (test 10.0 mg/dL 8.4-10.2 lycz=909) EGFR (BEAKER) (test 54 mL/min/1.73 sq m ESTIMATED GFR IS NOT klzt=0376) ACCURATE CREATININE CLEARANCE IN PREDICTING GLOMERULAR FILTRATION RATE. ESTIMATED GFR IS NOT APPLICABLE FOR DIALYSIS PATIENTS. [id number] 11:41:00 Test Item Value Reference Range Comments ALBUMIN (BEAKER) (test wsvj=6400) 4.2 g/dL 3.5-5.0 PROTHROMBIN [id number] 11:24:00 Test Item Value Reference Range Comments PROTIME (BEAKER) (test eskf=774) 13.5 seconds 11.7-14.7 INR (BEAKER) (test eytp=733) 1.0 <=5.9 RECOMMENDED COUMADIN/WARFARIN INR THERAPY RANGESSTANDARD DOSE: 2.0 - 3.0 Includes: PROPHYLAXIS forvenous thrombosis, systemic embolization; TREATMENT for venous thrombosis and/or pulmonary embolus.HIGH RISK: Target INR is 2.5-3.5 for patients with mechanical heart valves.CBC W/PLT COUNT & AUTO [id number] 11:19:00 Test Item Value Reference Range Comments WHITE BLOOD CELL COUNT (BEAKER) (test alhi=308) 7.6 K/ L 4.0-10.0 RED BLOOD CELL COUNT (BEAKER) (test jpwt=205) 4.09 M/ L 4.00-5.00 HEMOGLOBIN (BEAKER) (test vmlk=025) 11.9 GM/DL 12.0-15.0 HEMATOCRIT (BEAKER) (test koyn=126) 37.0 % 36.0-45.0 MEAN CORPUSCULAR VOLUME (BEAKER) (test haol=688) 90.4 fL 82.0-99.0 MEAN CORPUSCULAR HEMOGLOBIN (BEAKER) (test 29.1 pg 27.0-33.0 dezp=794) MEAN CORPUSCULAR HEMOGLOBIN CONC (BEAKER) (test 32.2 GM/DL 32.0-36.0 imej=075) RED CELL DISTRIBUTION WIDTH (BEAKER) (test 14.5 % 10.3-14.2 mvyc=255) PLATELET COUNT (BEAKER) (test clct=995) 267 K/CU MM 150-430 MEAN PLATELET VOLUME (BEAKER) (test toov=711) 7.8 fL 6.5-10.5 NUCLEATED RED BLOOD CELLS (BEAKER) (test 0 /100 WBC 0-0 bolr=194) NEUTROPHILS RELATIVE PERCENT (BEAKER) (test 67 % dzkn=128) LYMPHOCYTES RELATIVE PERCENT (BEAKER) (test 20 % eflk=872) MONOCYTES RELATIVE PERCENT (BEAKER) (test 9 % pdeq=375) EOSINOPHILS RELATIVE PERCENT (BEAKER) (test 3 % ofhu=849) BASOPHILS RELATIVE PERCENT (BEAKER) (test 1 % tirp=862) NEUTROPHILS ABSOLUTE COUNT (BEAKER) (test 5.06 K/ L 1.80-8.00 bbkx=554) LYMPHOCYTES ABSOLUTE COUNT (BEAKER) (test 1.54 K/ L 1.48-4.50 xgmw=592) MONOCYTES ABSOLUTE COUNT (BEAKER) (test 0.71 K/ L 0.00-1.30 hnuf=445) EOSINOPHILS ABSOLUTE COUNT (BEAKER) (test 0.24 K/ L 0.00-0.50 mkcw=588) BASOPHILS ABSOLUTE COUNT (BEAKER) (test 0.06 K/ L 0.00-0.20 phxw=463) [id number] 10:57:00 Test Item Value Reference Range Comments POC-CREATININE (BEAKER) 0.8 mg/dL 0.6-1.3 TESTED AT [facility] [address] [facility] (test zqxi=7538) [facility] [address] POC-EGFR (BEAKER) (test 71 mL/min/1.73M2 ahhc=2486)
--- OUTSIDE RECORDS SUMMARY | 2018-06-26 14:32 | XMS REPORT | Clinical Summary ---
:1950 Author Organization [facility] Address [address] [place] [address] Care Team Providers Name Role Phone Asked, [...] INFLUENZA VACCINE 02/28/2018 Results Not on fileafter 06/25/2017 Insurance Payer Benefit Plan / Group Subscriber ID Type Phone Address MEDICARE MEDICARE PART A AND B xxxxxxxxxx Medicare [place], [place] COMMERCIAL MISC MISC COMMERCIAL xxxxxxxxxx Commercial Advance Directives Patient has advance care planning documents on file. For more information, please contact:Bairon [place] [address]
--- OUTSIDE RECORDS SUMMARY | 2018-06-26 14:32 | XMS REPORT | Clinical Summary ---
:1950 Author Organization [facility] Address [address] [address] Care Team Providers Name Role Phone Carlos [...] Overview: Converted from ECW Coronary atherosclerosis of [place] coronary artery 12/05/2011 Overview: Converted from ECW [...] INFLUENZA VACCINE 04/30/2018 Implants Implanted Type Area Water Service Supervisor Device Shelf Model / Identifier Expiration Serial / Date Lot Closure Sys Perclose Progl 6fr [id number] - [id number] Cardiovascular N/A: MARKS 05/30/2018 [id number] / Implanted: Qty: 1 on 01/12/2017 by Anuj Escamilla MD [facility] LAB:[facility] DEV / [id number] Salomon Karina 3 Transcatheter Heart Valve Valves N/A: SALOMON 2017 [id number] / Implanted: Qty: 1 on 01/12/2017 by Anuj Escamilla MD [employer] [id number] / Results Not on fileafter 06/25/2017 Insurance Payer Benefit Plan / Group Subscriber ID Type Phone Address MEDICARE MEDICARE A B xxxxxxxxxx Medicare OTHER-COMMERCIAL GENERIC COMMERCIAL xxxxxxxxxx (Work) [phone] Advance Directives For more information, please contact:[address] [phone] Code Status Date Activated Date Inactivated Comments Full Code 01/12/2017 6:10 AM 01/13/2017 5:55 PM This code status was determined by: Patient
--- NOTE | 2018-06-26 16:17 | EDPHYS ---
Physician Documentation [facility] Name: Margo Valdovinos Age: 68 yrs Sex: Female : 1950 Arrival Date: 06/26/2018 Time: 14:00 Bed 17 Private MD: ED Physician Dejuan Aiken HPI: 06/26 16:13 This 68 yrs old Female presents to ER via Ambulatory with complaints of Rash, greg Abdominal Pain, Back Pain. 16:13 The patient's rash thought to be caused by Dermatitis. The rash is located on the greg groin, right femoral area and right inguinal area. The rash can be described as erythematous, vesicular. Onset: The symptoms/episode began/occurred 2 day(s) ago. Associated signs and symptoms: Pertinent positives: burning sensation. Severity of symptoms: At their worst the symptoms were mild moderate in the emergency department the symptoms are unchanged. Treatment given at home: none. The patient has not experienced similar symptoms in the past. Historical: - Allergies: 14:29 Sulfa (Sulfonamide Antibiotics); dm5 - PMHx: 14:29 Diabetes - NIDDM; Hyperlipidemia; Hypertension; dm5 - Immunization history:: Adult Immunizations up to date. - Social history:: Smoking status: Patient/guardian denies using tobacco. - Family history:: not pertinent. - Ebola Screening: : Patient negative for fever greater than or equal to 101.5 degrees Fahrenheit, and additional compatible Ebola Virus Disease symptoms Patient denies exposure to infectious person Patient denies travel to an Ebola-affected area in the 21 days before illness onset No symptoms or risks identified at this time. ROS: 16:13 Constitutional: Negative for fever, chills, and weight loss, Eyes: Negative for injury, greg pain, redness, and discharge, ENT: Negative for injury, pain, and discharge, Neck: Negative for injury, pain, and swelling, Cardiovascular: Negative for chest pain, palpitations, and edema, Respiratory: Negative for shortness of breath, cough, wheezing, and pleuritic chest pain, Back: Negative for injury and pain, : Negative for injury, bleeding, discharge, and swelling, MS/Extremity: Negative for injury and deformity, Neuro: Negative for headache, weakness, numbness, tingling, and seizure, Psych: Negative for depression, anxiety, suicide ideation, homicidal ideation, and hallucinations, Allergy/Immunology: Negative for hives, rash, and allergies, Endocrine: Negative for neck swelling, polydipsia, polyuria, polyphagia, and marked weight changes, Hematologic/Lymphatic: Negative for swollen nodes, abnormal bleeding, and unusual bruising. 16:13 Abdomen/GI: Positive for abdominal pain. 16:13 Skin: Positive for lesions, of the groin, right femoral area and right inguinal area. Exam: 16:13 Constitutional: This is a well developed, well nourished patient who is awake, alert, greg and in no acute distress. Head/Face: Normocephalic, atraumatic. Eyes: Pupils equal round and reactive to light, extra-ocular motions intact. Lids and lashes normal. Conjunctiva and sclera are non-icteric and not injected. Cornea within normal limits. Periorbital areas with no swelling, redness, or edema. ENT: Nares patent. No nasal discharge, no septal abnormalities noted. Tympanic membranes are normal and external auditory canals are clear. Oropharynx with no redness, swelling, or masses, exudates, or evidence of obstruction, uvula midline. Mucous membranes moist. Neck: Trachea midline, no thyromegaly or masses palpated, and no cervical lymphadenopathy. Supple, full range of motion without nuchal rigidity, or vertebral point tenderness. No Meningismus. Chest/axilla: Normal chest wall appearance and motion. Nontender with no deformity. No lesions are appreciated. Cardiovascular: Regular rate and rhythm with a normal S1 and S2. No gallops, murmurs, or rubs. Normal PMI, no JVD. No pulse deficits. Respiratory: Lungs have equal breath sounds bilaterally, clear to auscultation and percussion. No rales, rhonchi or wheezes noted. No increased work of breathing, no retractions or nasal flaring. Abdomen/GI: Soft, non-tender, with normal bowel sounds. No distension or tympany. No guarding or rebound. No evidence of tenderness throughout. Back: No spinal tenderness. No costovertebral tenderness. Full range of motion. Female : Normal external genitalia. MS/ Extremity: Pulses equal, no cyanosis. Neurovascular intact. Full, normal range of motion. Neuro: Awake and alert, GCS 15, oriented to person, place, time, and situation. Cranial nerves II-XII grossly intact. Motor strength 5/5 in all extremities. Sensory grossly intact. Cerebellar exam normal. Normal gait. Psych: Awake, alert, with orientation to person, place and time. Behavior, mood, and affect are within normal limits. 16:13 Skin: Appearance: Color: normal in color, pink, Temperature: normal temperature, Moisture: normal moisture, petechiae, not noted, ecchymosis, not noted, flushing, not noted, diaphoresis is not appreciated, lesion(s), vesicle(s) noted, located on the groin, right femoral area and right inguinal area. Vital Signs: 14:25 BP 125 / 54; Pulse 66; Resp 18; Temp 97.9; Pulse Ox 100% on R/A; Weight 79.83 kg (R); dm5 Height 5 ft. 2 in. (157.48 cm); Pain 5/10; 14:25 Body Mass Index 32.19 (79.83 kg, 157.48 cm) dm5 MDM: 14:21 Patient medically screened. [facility] 16:23 Data reviewed: vital signs, nurses notes, lab test result(s), radiologic studies, CT greg scan. Administered Medications: 16:38 Drug: valACYclovir 1000 mg Route: PO; bp 16:38 Follow up: Response: Medication administered at discharge. bp Disposition: 06/26/18 16:17 Discharged to Home. Impression: Zoster without complications, Zoster [herpes zoster]. - Condition is Stable. - Discharge Instructions: Neuropathic Pain, Shingles, Shingles, [id number]. - Prescriptions for Tylenol- Codeine #3 300-30 mg Oral Tablet - take 2 tablet by ORAL route every 6 hours As needed; 30 tablet. Valtrex 1 g Oral Tablet - take 1 tablet by ORAL route every 8 hours for 7 days; 21 tablet. - Medication Reconciliation Form, Thank You Letter, Antibiotic Education, Prescription Opioid Use form. - Follow up: Private Physician; When: 2 - 3 days; Reason: Recheck today's complaints, Continuance of care, Re-evaluation by your physician. - Problem is new. - Symptoms have improved. Signatures: Nati Billy, RN RN dm5 Dejuan Aiken MD MD cha Peltier, Brian, RN RN bp Corrections: (The following items were deleted from the chart) 16:41 16:17 06/26/2018 16:17 Discharged to Home. Impression: Zoster without complications; bp Zoster [herpes zoster]. Condition is Stable. Forms are Medication Reconciliation Form, Thank You Letter, Antibiotic Education, Prescription Opioid Use. Follow up: Private Physician; When: 2 - 3 days; Reason: Recheck today's complaints, Continuance of care, Re-evaluation by your physician. Problem is new. Symptoms have improved. greg
--- NOTE | 2018-06-26 16:17 | ER ---
Nurse's Notes [facility] Name: Margo Valdovinos Age: 68 yrs Sex: Female : 1950 Arrival Date: 06/26/2018 Time: 14:00 Bed 17 Private MD: Diagnosis: Zoster without complications;Zoster [herpes zoster] Presentation: 06/26 14:25 Presenting complaint: Patient states: pt seen here yesterday but the pain has continued dm5 and there is a new rash in right groin area. pain rated at 5/10 at this time. Transition of care: patient was not received from another setting of care. 14:25 Method Of Arrival: Ambulatory dm5 14:25 Acuity: NATALI 3 dm5 16:39 Onset of symptoms is unknown. Risk Assessment: Do you want to hurt yourself or someone bp else? Patient reports no desire to harm self or others. Initial Sepsis Screen: Does the patient meet any 2 criteria? No. Patient's initial sepsis screen is negative. Does the patient have a suspected source of infection? No. Patient's initial sepsis screen is negative. Care prior to arrival: None. Triage Assessment: 14:30 General: Appears in no apparent distress. comfortable, Behavior is calm, cooperative, bp appropriate for age. Pain: Complains of pain in back and abdomen. EENT: No deficits noted. Neuro: Level of Consciousness is awake, alert, obeys commands, Oriented to person, place, time, situation, Appropriate for age. Cardiovascular: No deficits noted. Respiratory: Airway is patent Respiratory effort is even, unlabored, Respiratory pattern is regular, symmetrical. GI: Reports lower abdominal pain. : No signs and/or symptoms were reported regarding the genitourinary system. Derm: Reports RASH. Musculoskeletal: Circulation, motion, and sensation intact. Range of motion: intact in all extremities. Historical: - Allergies: 14:29 Sulfa (Sulfonamide Antibiotics); dm5 - PMHx: 14:29 Diabetes - NIDDM; Hyperlipidemia; Hypertension; dm5 - Immunization history:: Adult Immunizations up to date. - Social history:: Smoking status: Patient/guardian denies using tobacco. - Family history:: not pertinent. - Ebola Screening: : Patient negative for fever greater than or equal to 101.5 degrees Fahrenheit, and additional compatible Ebola Virus Disease symptoms Patient denies exposure to infectious person Patient denies travel to an Ebola-affected area in the 21 days before illness onset No symptoms or risks identified at this time. Screenin:34 Abuse screen: Denies threats or abuse. Denies injuries from another. Nutritional bp screening: No deficits noted. Tuberculosis screening: No symptoms or risk factors identified. Fall Risk None identified. Assessment: 14:34 General: SEE TRIAGE NOTE. bp 16:38 Reassessment: PT D/C HOME AMBULATORY, DX WITH SHINGLES. bp 16:40 GI: Bowel sounds present X 4 quads. Abd is soft X 4 quads. bp Vital Signs: 14:25 BP 125 / 54; Pulse 66; Resp 18; Temp 97.9; Pulse Ox 100% on R/A; Weight 79.83 kg (R); dm5 Height 5 ft. 2 in. (157.48 cm); Pain 5/10; 14:25 Body Mass Index 32.19 (79.83 kg, 157.48 cm) 5 ED Course: 14:00 Patient arrived in ED. rg4 14:20 Dejuan Aiken MD is Attending Physician. greg 14:25 Arm band placed on right wrist. Patient placed in an exam room, on a stretcher. dm5 14:26 Triage completed. 5 14:32 Austin Charles, RAFAEL is Primary Nurse. bp 14:34 Patient has correct armband on for positive identification. Bed in low position. Call bp light in reach. Side rails up X2. 16:39 No provider procedures requiring assistance completed. Patient did not have IV access bp during this emergency room visit. Administered Medications: 16:38 Drug: valACYclovir 1000 mg Route: PO; bp 16:38 Follow up: Response: Medication administered at discharge. bp Outcome: 16:17 Discharge ordered by . greg 16:39 Discharged to home ambulatory. bp 16:39 Condition: stable 16:39 Discharge instructions given to patient, Instructed on discharge instructions, follow up and referral plans. medication usage, Demonstrated understanding of instructions, follow-up care, medications, Prescriptions given X 2. 16:41 Patient left the ED. bp Signatures: Nati Billy, RN RN dm5 Dejuan Aiken MD MD cha Garcia, Rubi rg4 Austin Charles, RAFAEL RN bp
[2018-06-26] MEDS ORDERED: VALACYCLOVIR 500 MG TAB ONE (16:28)
== END 2018-06-26 16:41 | disposition home or self-care (01) ==
LOC: ER 13:58
DX: B02.9 Zoster without complications (principal); I10 Essential (primary) hypertension; Z88.2 Allergy status to sulfonamides
CPT/HCPCS: 99283

== ENCOUNTER 2020-05-26 15:56 | Emergency (ER) | payer OTHER ==
--- OUTSIDE RECORDS SUMMARY | 2020-05-26 15:59 | XMS REPORT | Clinical Summary ---
:1950 Author Organization [facility] Address [address] [place] [address] Care Team Providers Name Role Phone Carlos Primary Care Provider Allergies Active Allergy Reactions Severity Noted Date Comments Other Converted from ECW; Sulfa - ; Sulfa (Sulfonamide Rash Low 12/28/2016 Antibiotics) Medications Medication Sig Dispensed Refills Start End Date Status Date evolocumab (REPATHA Inject 140 mg 0 Active SURECLICK) 140 mg/mL subcutaneously once PnIj every 2 weeks. biotin 1 mg tablet Take 1,000 mcg by 0 Active mouth daily. amitriptyline (ELAVIL) Take 25 mg by mouth 0 Active 25 MG tablet nightly. hydroCHLOROthiazide Take 25 mg by mouth 0 Active (HYDRODIURIL) 25 MG daily. tablet cholecalciferol, vitamin Take 2,000 Units by 0 Active D3, 2,000 unit Tab mouth daily. multivitamin per tablet Take 1 tablet by 0 Active mouth daily. cyanocobalamin (VITAMIN Take 1,000 mcg by 0 Active B-12) 1000 MCG tablet mouth daily. aspirin 81 MG EC tablet Take 81 mg by mouth 0 Active daily. pantoprazole (PROTONIX) Take 40 mg by mouth 0 Active 40 MG tablet daily. rosuvastatin (CRESTOR) Take 40 mg by mouth 0 Active 40 MG tablet daily. carvedilol (COREG) 25 MG Take 25 mg by mouth 0 Active tablet 2 (two) times daily with breakfast and [...] (ZETIA) 10 mg Take 10 mg by mouth 0 Active tablet daily. SITagliptin (JANUVIA) 25 Take 25 mg by mouth 0 Active MG tablet daily. Active Problems Problem Noted Date (aortic stenosis) 01/12/2017 Aortic stenosis 01/12/2017 Type II or unspecified type diabetes mellitus without mention of 12/05/2011 complication, not stated as uncontrolled Overview: Converted from [facility]W Coronary atherosclerosis of [place] coronary artery 01/2012 Overview: Converted from ECW Mixed hyperlipidemia 12/05/2011 [...] Assigned at Date Recorded Not on file Last Filed Vital Signs Not on file Plan of Treatment Not on file Implants Implanted Type Area Calciner Operator Device Shelf Model / Identifier Expiration Serial / Date Lot Closure Sys Perclose Progl 6fr [id number] - [id number] Cardiovascular N/ A: MARKS 05/30/2018 [id number] / Implanted: Qty: 1 on 01/12/2017 by Anuj Mata MD at [facility] LAB:[facility] DEV / [id number] Salomon Karina 3 Transcatheter Heart Valve Valves N/A: SALOMON 10/25/2017 [id number] / Implanted: Qty: 1 on 01/12/2017 by Anuj Mata MD at [facility] [employer] 5 [id number] / Description:Aortic Valve Stent Results Not on fileafter 05/26/2019 Insurance Payer Benefit Plan / Subscriber ID Effective Dates Phone Addre ss Type Group MEDICARE MEDICARE A B [id number] 2012-Present Medicare OTHER-[employer] GENERIC [id number] 2012-Present L [employer]ER[employer] (Work) [phone] Advance Directives For more information, please contact: [phone] Code Status Date Activated Date Inactivated Comments Full Code 01/12/2017 6:10 AM 01/13/2017 5:55 PM This code status was determined by: Patient
--- OUTSIDE RECORDS SUMMARY | 2020-05-26 15:59 | XMS REPORT | Clinical Summary ---
:1950 Author Organization [facility] Address [address] [place] [address] Care Team Providers Name Role Phone MD Eulalio Primary Care Provider Allergies Active Allergy Reactions Severity Noted Date Comments Sulfa (Sulfonamide Antibiotics) 6 Medications Medication Sig Dispensed Refills Start End Status Date Date amitriptyline (ELAVIL) TK 1 T PO D. 4 03/06/20 Active 25 MG tablet 16 carvedilol (COREG) 25 25 mg 2 (two) 0 05/19/20 Active MG tablet times a day 16 with meals. hydrochlorothiazide TK 1 TABLET BY 1 04/10/20 Active (HYDRODIURIL) 25 MG MOUTH ONCE A 16 tablet DAY metFORMIN (GLUCOPHAGE) TK 1 T PO TWO 1 03/07/20 Active 1000 MG tablet TIMES A DAY. 16 aspirin (ECOTRIN) 81 Take 1 tablet 0 Active MG enteric coated every day by tablet oral route. pantoprazole Take 40 mg by 0 Act bobby (PROTONIX) 40 MG EC mouth daily. tablet rosuvastatin (CRESTOR) Take 20 mg by 0 Active 20 MG tablet mouth nightly. cyanocobalamin 1000 Take 5,000 mcg 0 Active MCG tablet by mouth daily. insulin 70/30 NPH and Inject under 0 Active regular human (HumuLIN the skin 2 70/30) 100 unit/mL (two) times a (70-30) injection day before meals. 12 UNITS in AM, 15 UNITS in PM psyllium seed Take 2 capsules 0 Active (PSYLLIUM ORAL) by mouth daily. ubidecarenone (CO Q-10 Take 100 mg by 0 Active ORAL) mouth daily. NON FORMULARY mitochondral 0 Act bobby energy booster 4 day. calcium phosphate Take by mouth. 0 Active trib/vit D3 (CITRACAL + D3, CALCIUM PHOS, ORAL) clopidogreL (PLAVIX) Take 75 mg by 0 Active 75 mg tablet mouth daily. ezetimibe (ZETIA) 10 Take 10 mg by 0 Active mg tablet mouth daily. hydroxychloroquine Take 200 mg by 0 Active (PLAQUENIL) 200 mg mouth 2 (two) tablet times a day. predniSONE (DELTASONE) Take 5 mg by 0 Active 5 mg tablet mouth daily as needed. glyBURIDE (DIABETA) TK 1 T PO QD 1 05/04/20 Discontinued 2.5 MG tablet 16 020 (Patie nt Reported) metFORMIN (GLUCOPHAGE) 1,000 mg. 1 04/15/20 Discontinued 500 MG tablet 16 020 (Dupli tod order) verapamil sustained Take 120 mg by 0 05/19/2012/29 Discontinued release (CALAN-SR) 120 mouth 2 (two) 16 020 (Patient MG SR tablet times a day. Disc harge) cholecalciferol, Vitamin D3 0 Di scontinued vitamin D3, (VITAMIN 2,000 unit 020 (Patient D3) 2,000 unit capsule capsule Reported) capsule biotin 1 mg tablet Take 1,000 mcg 0 Discontinued by mouth daily. 020 (Pat ient Reported) cyanocobalamin, Place 2,500 mcg 0 Discontinued vitamin B-12, 5,000 under the 020 (Patient mcg tablet, sublingual tongue daily. Reported) Active Problems Problem Noted Date Right carpal tunnel syndrome 09/26/2019 Overview: Added automatically from request for lucia сергей [id number] Aortic valve stenosis 06/02/2016 Chronic coronary artery disease 06/02/2016 Encounters Date Type Specialty Care Team Description 05/26/2020 Office Visit Orthopedic Surgery Stan Campos Left el bow pain (Primary Dx); Noah CHING MD Trigger index f michael of right hand; Trigger ring fi nger of right hand 05/26/2020 Travel 05/21/2020 Travel 01/14/2020 Office Visit Orthopedic Surgery Stan Campos Post-op erative Noah CHING MD state (Primary Dx) 01/14/2020 Travel 01/07/2020 Office Visit Orthopedic Surgery Stan Campos Bilater al hand Noah CHING MD numbness (Primary Jennifer Babcock, Dx) PA 01/07/2020 Travel 01/06/2020 Travel 01/02/2020 Anesthesia Event General Surgery Martin Christiansen MD Cheema, Ivelisse, FNP 01/02/2020 Surgery General Surgery Stan Campos RIGHT CARP AL TUNNEL Noah CHING MD RELEASE 01/02/2020 Hospital Encounter General Surgery Stan Campos III, MD 12/30/2019 Pre-Admit Testing Pre-Admission Stan Campos Preop t esting Appointment Testing Noah CHING MD (Primary Dx) 12/30/2019 Travel 12/27/2019 Travel 12/06/2019 Travel 11/29/2019 Travel 11/28/2019 Telephone Orthopedic Surgery Stan Campos III, MD 09/26/2019 Transcribe Orders Orthopedic Surgery Stan Campos Ri ght carpal tunnel Noah CHING MD syndrome (Prima ry Dx) 09/24/2019 Office Visit Orthopedic Surgery Stan Campos al carpal Noah CHING MD tunnel syndrome (Primary Dx) 09/17/2019 Procedure visit Neurology Stan Campos Bilateral carpal tunnel syndrome (Primary Dx); Noah CHING MD Bilateral hand numbness Jamari Lovett MD 09/03/2019 Hospital Encounter Radiology Stan Campos III, MD 09/03/2019 Hospital Encounter Radiology Stan Campos III, MD 09/03/2019 Office Visit Orthopedic Surgery Stan Campos al hand numbness (Primary Dx); Noah CHING MD Trigger index f michael of right hand; Bilateral carpa l tunnel syndrome after 05/26/2019 Surgical History Surgery Date Site/Laterality Comments CORONARY ARTERY BYPASS GRAFT 07/31/2006 - x3 07/30/2007 HYSTERECTOMY TONSILLECTOMY CARDIAC CATHETERIZATION 06/08/2016 N/A Procedur e: Cv left heart cath w lv gram cors; Surgeon: Hayden Samano MD; Location: [facility]; Service: Cardiovascular; Laterality: N/A; NISA LV PCI REDUCTION MAMMAPLASTY 07/31/1989 - Breast Red uction 07/30/1990 AORTIC VALVE REPLACEMENT 07/31/2016 - 07/30/2017 RELEASE, CARPAL TUNNEL 01/02/2020 Wrist/Right Procedure : RIGHT CARPAL TUNNEL RE LEASE; Surgeon: Stan Campos III, MD; Location: [facility]; Service: Orthopedics; Laterality: Righ t; Medical History Medical History Date Comments Diabetes mellitus type 2, controlled (HCC) Coronary artery disease Hyperlipidemia Hypertension Aortic stenosis Arthritis Diabetes (HCC) Heart attack (HCC) 2007 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 No CP gets SOB at ti mes. Hypercholesteremia Sleep apnea no cpap needed Family History Medical History Relation Name Comments Heart attack Father Valentin Kerr Diabetes Maternal Grandmother Britany Pérez Cancer Mother Sheryl Nguyen Heart disease Mother Sheryl Nguyen Coronary artery disease Other Unspecified Relation Relation Name Status Comments Father Valentin Kerr Maternal Grandmother Britany Pérez Mother Sheryl Nguyen Other Unspecified Relation Social History Tobacco Use Types Packs/Day Years Used Date Never Smoker 0 0 Smokeless Tobacco: Never Used Alcohol Use Drinks/Week oz/Week Comments No Sex Assigned at Date Recorded Not on file COVID-19 Exposure Response Date Recorded In the last month, have you been in contact with No / Unsure 05/26/2020 1:31 PM CDT someone who was confirmed or suspected to have Coronavirus / COVID-19? Last Filed Vital Signs Vital Sign Reading Time Taken Comments Blood Pressure 166/75 01/02/2020 9:05 AM CDT Pulse 60 01/02/2020 9:05 AM CDT Temperature 37.1 C (98.7 F) 01/02/2020 8:45 AM CDT Respiratory Rate 15 01/02/2020 9:05 AM CDT Oxygen Saturation 98% 01/02/2020 9:05 AM CDT Inhaled Oxygen Concentration - - Weight 89.8 kg (198 lb) 05/26/2020 1:46 PM CDT Height 157.5 cm (5' 2") 05/26/2020 1:46 PM CDT Body Mass Index 36.21 05/26/2020 1:46 PM CDT Plan of Treatment Date Type Specialty Care Team Description 06/12/2020 Office Visit Orth[place] [address] [facility], [place] [phone] Health Maintenance Due Date Last Done Comments DIABETES: RETINAL EYE EXAM 01/18/1958 DIABETIC FOOT EXAM 01/18/1958 URINE MICROALBUMIN 01/18/1958 BREAST CANCER SCREENING 01/18/1998 COLONOSCOPY SCREENING 01/18/1998 SHINGLES VACCINES (#1) 01/18/1998 65+ PNEUMOCOCCAL VACCINE (1 of 1 - PPSV23) 01/18/2013 INFLUENZA VACCINE 02/29/2020 Procedures Procedure Name Priority Date/Time Associated Comments Diagnosis POC GLUCOSE Routine 01/02/2020 7:25 Results for this AM CDT procedure are i n the results section. ECG PRE/POST OP Routine 12/30/2019 8:41 Preop testing Results for this AM CDT procedure are i n the results section. ESTIMATED GFR Routine 12/30/2019 8:38 Results fo r this AM CDT procedure are i n the results section. COMPREHENSIVE Routine 12/30/2019 8:38 Preop testing Results f or this METABOLIC PANEL AM CDT procedure ar e in the results section. HC COMPLETE BLD COUNT Routine 12/30/2019 8:38 Preop testing R esults for this W/AUTO DIFF AM CDT procedure are i n the results section. COVID-19 QUALITATIVE Routine 12/30/2019 8:38 Preop testing Re sults for this PCR AM CDT procedure are i n the results section. [place] INJECT TENDON Routine 09/03/2019 10:00 Trigger index Result s for this SHEATH/LIGAMENT AM [facility] finger of right procedure are in hand the results section. MRI UPPER EXTREMITY Routine 08/29/2019 11:09 Resu lts for this EXTERNAL STUDY AM [facility] procedure are in the results section. MRI UPPER EXTREMITY Routine 08/29/2019 11:08 Resu lts for this EXTERNAL STUDY AM [facility] procedure are in the results section. after 05/26/2019 Results POC glucose (01/02/2020 7:25 AM CDT) Pathologist Sig nature POC glucose 93 65 - 99 mg/dL ROSALVA SMITH Comment: [facility] Chuck Splitter Name: Nahomy Valero Device ID: [id number] Specimen Blood Performing Organization Address City/State/ZIP Code Phon e Number [facility] DEPARTMENT OF PATHOLOGY [address] [facility] [address] [facility] [address] [facility], [place] [address] [facility] ECG Pre/Post Op (12/30/2019 8:41 AM CDT) Pathologist [facility] nature Ventricular rate 53 [facility] Atrial rate 53 [facility] W[place] interval 148 [facility] QRSD interval 160 [facility] QT interval 450 [facility] QTC interval 422 [facility] P axis 1 20 [facility] QRS axis 1 35 [facility] T wave axis 36 [facility] EKG impression Sinus bradycardia-Right [facility] bundle branch block-Abnormal ECG-In automated comparison with ECG of 08-JUN-2016 09:14,-T wave inversion no longer evident in Anterior leads- Specimen Narrative Performed At This result has an attachment that is no t available. Performing Organization Address City/State/ZIP Code Phon e Number [facility] MUSE [address] [place] [address] Estimated GFR (12/30/2019 8:38 AM CDT) Pathologist [facility] Estimated GFR 48 (A) mL/min/1.73 [facility] Comment: m2 [place] Catergory Units Interpretation HOS PITAL G1 >=90 Normal or high G2 60-89 Mildly decreased G3a 45-59 Mildly to moderately decreas ed G3b 30-44 Moderately to severely decre ased G4 15-29 Severely decreased G5 <15 Kidney failure The eGFR was calculated using the Chronic Kidney Disea se Epidemiology Collaboration (CKD-EPI) equation. Interpretation is based on recommendations of the National Kidney Foundation-Kidney Disease Outcomes Afshin lity Initiative (NKF-KDOQI) published in 2014. Specimen Performing Organization Address City/State/ZIP Code Phon e Number [facility] DEPARTMENT OF PATHOLOGY [address] [facility], [place] [address] [facility] [address] [facility], [place] [address] [facility] COVID-19 qualitative PCR (12/30/2019 8:38 AM CDT) Interpretation Negative results do not prec lude 2019-nCoV infection and should not be used as the sole basis for treatment or other patient management decisions. Negative results must be combined with clinical observations, patient history, and epidemiological [place] information. [facility] COVID-19 qualitative Not-Detected Not-Detecte [place] PCR result d [facility] COVID-19 qualitative See link below for [facility] PCR PDF Lab EPISCOPAL ReportComment: Case HOSPITAL Number: [id number] Specimen Nasopharyngeal Performing Organization Address City/[facility] Phon e Number [facility] DEPARTMENT OF PATHOLOGY AND [address] [place], [place] [address] GENOM[facility] [address] [place] [address] [facility] CBC with platelet and differential (12/30/2019 8:38 AM CDT) WBC 7.5 4.5 - 11.0 k/uL [facility] RBC 4.01 (L) 4.20 - 5.50 [facility] m/uL [facility] HGB 11.2 (L) 12.0 - 16.0 [facility] g/dL [facility] HCT 36.1 (L) 37.0 - 47.0 % [facility] MCV 90.0 82.0 - 100.0 fL [facility] MCH 27.9 27.0 - 34.0 pg [facility] MCHC 31.0 31.0 - 37.0 [facility] - SD 47.8 37.0 - 55.0 fL [facility] MPV 10.2 6.9 - 11.0 fL [facility] Platelet count 219 150 - 400 K/uL [facility] Nucleated RBC 0.00 /100 WBC [facility] Neutrophils 66.5 39.0 - 69.0 % [facility] Lymphocytes 21.0 (L) 25.0 - 45.0 % [facility] Monocytes 9.6 0.0 - 10.0 % [facility] Eosinophils 2.1 0.0 - 5.0 % [facility] Basophils 0.5 0.0 - 1.0 % [facility] Immature granulocytes 0.3 0.0 - 1.0 % [facility] Specimen Blood Performing Organization Address City/[facility] Phon e Number [facility] DEPARTMENT OF PATHOLOGY [address] [facility] [place] [address] [facility] [id number] [place] [address] [facility] Comprehensive metabolic panel (12/30/2019 8:38 AM CDT) [facility] nature Sodium 140 135 - 148 mEq/L [facility] Potassium 4.6 3.5 - 5.0 mEq/L [facility] Chloride 100 98 - 112 mEq/L [facility] CO2 30 24 - 31 mEq/L [facility] Anion gap 10@ANIO 7 - 15 mEq/L [facility] BUN 24 (H) 8 - 23 mg/dL [facility] Creatinine 1.14 (H) 0.50 - 0.90 [facility] mg/dL [facility] Glucose 105 (H) 65 - 99 mg/dL [facility] Calcium 9.8 8.8 - 10.2 [facility] mg/dL [facility] Protein 6.6 6.3 - 8.3 g/dL [facility] Albumin 4.1 3.5 - 5.0 g/dL [facility] A/G ratio 1.6 0.7 - 3.8 [facility] Alkaline phosphatase 49 35 - 104 U/L [facility] AST 23 10 - 35 U/L [facility] ALT 27 5 - 50 U/L [facility] Total bilirubin 0.4 0.2 - 1.2 mg/dL [facility] Specimen Blood Performing Organization Address City/State/ZIP Code Phon e Number [facility] DEPARTMENT OF PATHOLOGY [address] [facility] [address] [facility] [address] [facility] [place] [address] [facility] Hand/Upper Extremity Injection/Arthrocentesis: R index finger (09/03/2019 10:00 AM [facility]) Narrative Performed At Stan Campos III, MD 09/03/19 12:19 PM Hand/Upper Extremity Injection/Arthrocen tesis: R index finger Date/Time: 09/03/2019 12:18 PM Consent given by: patient Site marked: site marked Timeout: Immediately prior to procedure a time out was called to verify the correct patient, procedure, equipmen t, computer network support specialist and site/side marked as required Supporting Documentation Indications: pain and therapeutic Procedure Details Condition: trigger finger Site: R index finger Location: - Index flexor pulleys: Volar aspect. Preparation: Patient was prepped and arturo ped in the usual sterile fashion Right side: Needle size: 25 G Right index finger medications administe red: 40 mg methylPREDNISolone acetate 40 mg/mL; 1 mL lidocaine 10 mg/m L (1 %) Patient tolerance: patient tolerated the procedure wel l with no immediate complications (Band aid was applied) Injection Type: tendon sheath Platelet Rich Plasma Used: no PRP Use d Fluoroscopic Needle Guidance Used: no fluoroscopic needle guidance MRI Upper Extremity External Study (08/29/2019 11:09 AM [facility])Only the most recent of2 resultswithin the time period is included. Specimen Narrative Performed At This exam was not acquired at a [facility] facility and has not been [facility] interpreted by a [facility] Provider. T he exam was imported into our imaging system. 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
--- OUTSIDE RECORDS SUMMARY | 2020-05-26 16:00 | XMS REPORT | Continuity of Care Document ---
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 (test code = 381) POTASSIUM (BEAKER) 4.3 meq/L 3.5-5.1 (test code = 379) CHLORIDE (BEAKER) 102 meq/L 98-107 (test code = 382) CO2 (BEAKER) (test 26 meq/L 22-29 code = 355) BLOOD UREA NITROGEN 21 mg/dL 7-21 (BEAKER) (test code = 354) CREATININE (BEAKER) 1.02 mg/dL 0.57-1.25 (test code = 358) GLUCOSE RANDOM 215 mg/dL 70-105 H (BEAKER) (test code = 652) CALCIUM (BEAKER) 10.0 mg/dL 8.4-10.2 (test code = 697) EGFR (BEAKER) (test 54 mL/min/1.73 ESTIMA FARIHA GFR IS code = 1092) sq m NOT ACCURATE CREATININE CLEARANCE IN PREDICTING GLOMERULAR FILTRATION RATE . ESTIMATED GFR I S NOT APPLICABLE FOR DIALYSIS PATIEN TS. [id number] 11:41:00 Test Item Value Reference Range Interpretation Comments ALBUMIN (BEAKER) (test code = 1145) 4.2 g/dL 3.5-5.0 PROTHROMBIN TIME/[id number] 11:24:00 Test Item Value Reference Range Interpretation Comments PROTIME (BEAKER) (test code = 13.5 seconds 11.7-14.7 759) INR (BEAKER) (test code = 370) 1.0 <=5.9 RECOMMENDED COUMADIN/WARFARIN INR THERAPY RANGESSTANDARD DOSE: 2.0 - 3.0 Includes: PROPHYLAXIS forvenous thrombosis, systemic embolization; TREATMENT for venous thrombosis and/or pulmonary embolus.HIGH RISK: Target INR is 2.5-3.5 for patients with mechanical heart valves.CBC W/PLT COUNT & AUTO DIFFERENTIAL 2017-01-09 11:19:00 Test Item Value Reference Range Interpretation Comments WHITE BLOOD CELL COUNT (BEAKER) 7.6 K/ L 4.0-10.0 (test code = 775) RED BLOOD CELL COUNT (BEAKER) 4.09 M/ L 4.00-5.00 (test code = 761) HEMOGLOBIN (BEAKER) (test code = 11.9 GM/DL 12.0-15.0 L 410) HEMATOCRIT (BEAKER) (test code = 37.0 % 36.0-45.0 411) MEAN CORPUSCULAR VOLUME (BEAKER) 90.4 fL 82.0-99.0 (test code = 753) MEAN CORPUSCULAR HEMOGLOBIN 29.1 pg 27.0-33.0 (BEAKER) (test code = 751) MEAN CORPUSCULAR HEMOGLOBIN CONC 32.2 GM/DL 32.0-36.0 (BEAKER) (test code = 752) RED CELL DISTRIBUTION WIDTH 14.5 % 10.3-14.2 H (BEAKER) (test code = 412) PLATELET COUNT (BEAKER) (test 267 K/CU MM 150-430 code = 756) MEAN PLATELET VOLUME (BEAKER) 7.8 fL 6.5-10.5 (test code = 754) NUCLEATED RED BLOOD CELLS 0 /100 WBC 0-0 (BEAKER) (test code = 413) NEUTROPHILS RELATIVE PERCENT 67 % (BEAKER) (test code = 429) LYMPHOCYTES RELATIVE PERCENT 20 % (BEAKER) (test code = 430) MONOCYTES RELATIVE PERCENT 9 % (BEAKER) (test code = 431) EOSINOPHILS RELATIVE PERCENT 3 % (BEAKER) (test code = 432) BASOPHILS RELATIVE PERCENT 1 % (BEAKER) (test code = 437) NEUTROPHILS ABSOLUTE COUNT 5.06 K/ L 1.80-8.00 (BEAKER) (test code = 670) LYMPHOCYTES ABSOLUTE COUNT 1.54 K/ L 1.48-4.50 (BEAKER) (test code = 414) MONOCYTES ABSOLUTE COUNT (BEAKER) 0.71 K/ L 0.00-1.30 (test code = 415) EOSINOPHILS ABSOLUTE COUNT 0.24 K/ L 0.00-0.50 (BEAKER) (test code = 416) BASOPHILS ABSOLUTE COUNT (BEAKER) 0.06 K/ L 0.00-0.20 (test code = 417) [id number] 10:57:00 Test Item Value Reference Range Interpretation Comments POC-CREATININE 0.8 mg/dL 0.6-1.3 TESTED AT [facility] 67[facility] ([facility]) (test [place] code = 5332) [address] POC-EGFR (AKER) 71 mL/min/1.73M2 (test code = 6630)
[2020-05-26] MEDS ORDERED: TETANUS & DIPHTHERIA TOX,ADULT 0.5 ML VIAL ONE (18:23)
--- NOTE | 2020-05-26 18:37 | EDPHYS ---
Physician Documentation [facility] Name: Margo Valdovinos Age: 70 yrs Sex: Female : 1950 Arrival Date: 05/26/2020 Time: 15:58 Bed 18 Private MD: ED Physician Dejuan Aiken HPI: 05/26 18:28 This 70 yrs old Female presents to ER via Ambulatory with complaints of Fall kb x2- Leg Weakness. 18:28 Details of fall: The patient fell from an upright position. Onset: The symptoms/episode kb began/occurred this morning. Associated injuries: The patient sustained dorsum of left foot, abrasion, contusion, ecchymosis. Severity of symptoms: At their worst the symptoms were moderate, in the emergency department the symptoms are unchanged. The patient has not experienced similar symptoms in the past. The patient has been recently seen by a physician: an orthopedic surgeon, earlier today, with different complaint(s). Pt reports she was walking down the stairs this morning and her legs gave out causing her to fall. 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 She went to the pharmacy and her legs gave out again in the parking lot causing her to fall. Reports bruising to cheung and left foot, hematoma with abrasions to left forearm. Arm was x-rayed today at the orthopedist and was negative for fracture. Historical: - Allergies: 16:49 Sulfa (Sulfonamide Antibiotics); ca1 - Home Meds: 16:49 ramipril 2.5 mg Oral cap 1 cap once daily [Active]; aspirin 81 mg Oral TbEC 1 tab once ca1 daily [Active]; Vitamin B-12 Oral [Active]; biotin 1,000 mcg Oral chew [Active]; multivitamin with minerals oral oral [Active]; Iron CR Oral [Active]; carvedilol 25 mg Oral tab 1 tab 2 times per day [Active]; ezetimibe 10 mg Oral 1 tab once daily [Active]; Hydrochlorothiazide Oral [Active]; metformin 1,000 mg Oral tab 1 tab 2 times per day [Active]; pantoprazole 40 mg Oral TbEC 1 tab once daily [Active]; rosuvastatin 40 mg Oral tab 1 tab once daily [Active]; amitriptyline 25 mg Oral tab 1 tab once daily [Active]; clopidogrel 75 mg Oral tab 1 tab once daily [Active]; Insulin: Humulin N Sub-Q [Active]; Vitamin C Oral [Active]; psyllium oral oral [Active]; CoQ-10 100 mg oral cap [Active]; niacinamide 100 mg oral tab [Active]; - PMHx: 16:49 Diabetes - NIDDM; Hyperlipidemia; Hypertension; CAD; Diabetes - IDDM; ca1 - PSHx: 16:49 Tonsillectomy; Hysterectomy; breast reductions; CABG; aortic Valve Replacememt; ca1 - Immunization history:: Adult Immunizations up to date, Pneumococcal vaccine is up to date, Flu vaccine is up to date. - Social history:: Smoking status: Patient denies any tobacco usage or history of. ROS: 18:23 Constitutional: Negative for fever, chills, and weight loss, Cardiovascular: Negative kb for chest pain, palpitations, and edema, Respiratory: Negative for shortness of breath, cough, wheezing, and pleuritic chest pain, Abdomen/GI: Negative for abdominal pain, nausea, vomiting, diarrhea, and constipation, Back: Negative for injury and pain, Neuro: Negative for headache, weakness, numbness, tingling, and seizure. 18:23 MS/extremity: Positive for ecchymosis, pain, of the left foot. 18:23 Skin: Positive for abrasion(s), hematoma, of the left forearm and left cheung. Exam: 18:23 Constitutional: This is a well developed, well nourished patient who is awake, alert, kb and in no acute distress. Head/Face: Normocephalic, atraumatic. Chest/axilla: Normal chest wall appearance and motion. Nontender with no deformity. No lesions are appreciated. Cardiovascular: Regular rate and rhythm with a normal S1 and S2. No gallops, murmurs, or rubs. Normal PMI, no JVD. No pulse deficits. Respiratory: Lungs have equal breath sounds bilaterally, clear to auscultation and percussion. No rales, rhonchi or wheezes noted. No increased work of breathing, no retractions or nasal flaring. Abdomen/GI: Soft, non-tender, with normal bowel sounds. No distension or tympany. No guarding or rebound. No evidence of tenderness throughout. Neuro: Awake and alert, GCS 15, oriented to person, place, time, and situation. Cranial nerves II-XII grossly intact. Motor strength 5/5 in all extremities. Sensory grossly intact. Cerebellar exam normal. Normal gait. 18:23 Skin: injury, abrasion(s), small abrasion noted, of the left forearm, contusion(s), that are superficial, of the left forearm, left cheung and dorsum of left foot. Vital Signs: 16:38 BP 127 / 64; Pulse 73; Resp 16 S; Temp 98.1(TE); Pulse Ox 100% on R/A; Weight 88.45 kg ca1 (R); Height 5 ft. 2 in. (157.48 cm) (R); Pain 7/10; 18:00 BP 157 / 121; Pulse 75; Resp 17; Pulse Ox 100% ; bp 18:49 BP 174 / 58; Pulse 78; Resp 17; Pulse Ox 99% ; bp 16:38 Body Mass Index 35.67 (88.45 kg, 157.48 cm) ca1 MDM: 17:57 Patient medically screened. kb 18:23 Data reviewed: vital signs, nurses notes. Data interpreted: Pulse oximetry: on room air kb is 100 %. Interpretation: normal. Counseling: I had a detailed discussion with the patient and/or guardian regarding: the historical points, exam findings, and any diagnostic results supporting the discharge/admit diagnosis, radiology results, the need for outpatient follow up, a orthopedic surgeon, to return to the emergency department if symptoms worsen or persist or if there are any questions or concerns that arise at home. 05/26 18:05 Order name: Foot Left 3 View XRAY kb 05/26 18:05 Order name: Wound Care; Complete Time: 18:47 kb Administered Medications: 18:10 Drug: Tetanus-Diphtheria Toxoid Adult 0.5 ml {[employer] Operator: [employer]. Exp: bp 10/11/2021. Lot #: [id number]. } Route: IM; Site: right deltoid; 18:47 Follow up: Response: No adverse reaction bp Disposition: 05/27 11:56 Co-signature as Attending Physician, Dejuan Aiken MD I agree with the assessment and greg plan of care. Disposition: 05/26/20 18:36 Discharged to Home. Impression: Fall on same level from slipping, tripping and stumbling, Abrasion of left forearm, Contusion of left forearm, Contusion of left foot. - Condition is Stable. - Discharge Instructions: Hematoma, Pawy-jc-Luog, Abrasion, Zfaq-sp-Ddiu, Fall Prevention in the Home, Xede-dg-Aasq, Foot Contusion, Kqvl-dx-Hmud. - Medication Reconciliation Form, Thank You Letter, Antibiotic Education, Prescription Opioid Use form. - Follow up: Emergency Department; When: As needed; Reason: Worsening of condition. Follow up: Private Physician; When: 2 - 3 days; Reason: Recheck today's complaints, Continuance of care, Re-evaluation by your physician. Signatures: Dispatcher [employer] EDMS Becki Valdovinos, STEPHANIE-C STEPHANIE-Dejuan Betancur MD MD cha Peltier, Brian, RN RN bp Acob, Cheryl, RN RN ca1 Corrections: (The following items were deleted from the chart) 05/26 19:00 18:36 05/26/2020 18:36 Discharged to Home. Impression: Fall on same level from bp slipping, tripping and stumbling; Abrasion of left forearm; Contusion of left forearm; Contusion of left foot. Condition is Stable. Discharge Instructions: Hematoma, Wpdz-qf-Hvvl, Abrasion, Hxpf-ef-Miks, Fall Prevention in the Home, Utxw-lw-Xznw, Foot Contusion, Mbhj-yo-Pxhp. Forms are Medication Reconciliation Form, Thank You Letter, Antibiotic Education, Prescription Opioid Use. Follow up: Emergency Department; When: As needed; Reason: Worsening of condition. Follow up: Private Physician; When: 2 - 3 days; Reason: Recheck today's complaints, Continuance of care, Re-evaluation by your physician. kb
--- NOTE | 2020-05-26 18:37 | ER ---
Nurse's Notes [facility] Name: Margo Valdovinos Age: 70 yrs Sex: Female : 1950 Arrival Date: 05/26/2020 Time: 15:58 Bed 18 Private MD: Diagnosis: Fall on same level from slipping, tripping and stumbling;Abrasion of left forearm;Contusion of left forearm;Contusion of left foot Presentation: 05/26 16:38 Chief complaint: Patient states: Was leaving house this morning at 0845 for a PCP ca1 visit. My knees gave out on me on my last step down and I fell on the landing. Fell on the L side, abrasion sustained on the L forearm. This afternoon at 1600, as I stepped of the curb, my knees gave out again and I fell again and was on my knees, sustained abrasion and bump on L cheung. Denies LOC on both falls. Denies hitting head on both falls. Coronavirus screen: Client denies travel out of the [place] in the last 14 days. At this time, the client does not indicate any symptoms associated with coronavirus-19. The client reports previous COVID testing was negative. Date of collection: December 2019. Ebola Screen: Patient negative for fever greater than or equal to 101.5 degrees Fahrenheit, and additional compatible Ebola Virus Disease symptoms Patient denies exposure to infectious person. Patient denies travel to an Ebola-affected area in the 21 days before illness onset. No symptoms or risks identified at this time. Initial Sepsis Screen: Does the patient meet any 2 criteria? No. Patient's initial sepsis screen is negative. Does the patient have a suspected source of infection? No. Patient's initial sepsis screen is negative. Risk Assessment: Do you want to hurt yourself or someone else? Patient reports no desire to harm self or others. Onset of symptoms was May 26, 2020. 16:38 Method Of Arrival: Ambulatory ca1 16:38 Acuity: NATALI 4 ca1 Triage Assessment: 18:00 General: Appears in no apparent distress. uncomfortable, obese, Behavior is calm, bp cooperative, appropriate for age. Pain: Complains of pain in dorsum of left foot and left foot and left leg and left cheung and left arm and left forearm. EENT: No deficits noted. Neuro: No deficits noted. Cardiovascular: No deficits noted. Respiratory: No deficits noted. GI: No signs and/or symptoms were reported involving the gastrointestinal system. : No signs and/or symptoms were reported regarding the genitourinary system. Derm: No deficits noted. Musculoskeletal: Swelling present in left forearm. Injury Description: Abrasion sustained to left foot and left leg and left cheung and left arm and left forearm. Historical: - Allergies: 16:49 Sulfa (Sulfonamide Antibiotics); ca1 - Home Meds: 16:49 ramipril 2.5 mg Oral cap 1 cap once daily [Active]; aspirin 81 mg Oral TbEC 1 tab once ca1 daily [Active]; Vitamin B-12 Oral [Active]; biotin 1,000 mcg Oral chew [Active]; multivitamin with minerals oral oral [Active]; Iron CR Oral [Active]; carvedilol 25 mg Oral tab 1 tab 2 times per day [Active]; ezetimibe 10 mg Oral 1 tab once daily [Active]; Hydrochlorothiazide Oral [Active]; metformin 1,000 mg Oral tab 1 tab 2 times per day [Active]; pantoprazole 40 mg Oral TbEC 1 tab once daily [Active]; rosuvastatin 40 mg Oral tab 1 tab once daily [Active]; amitriptyline 25 mg Oral tab 1 tab once daily [Active]; clopidogrel 75 mg Oral tab 1 tab once daily [Active]; Insulin: Humulin N Sub-Q [Active]; Vitamin C Oral [Active]; psyllium oral oral [Active]; CoQ-10 100 mg oral cap [Active]; niacinamide 100 mg oral tab [Active]; - PMHx: 16:49 Diabetes - NIDDM; Hyperlipidemia; Hypertension; CAD; Diabetes - IDDM; ca1 - PSHx: 16:49 Tonsillectomy; Hysterectomy; breast reductions; CABG; aortic Valve Replacememt; ca1 - Immunization history:: Adult Immunizations up to date, Pneumococcal vaccine is up to date, Flu vaccine is up to date. - Social history:: Smoking status: Patient denies any tobacco usage or history of. Screenin:10 Abuse screen: Denies threats or abuse. Denies injuries from another. Nutritional bp screening: No deficits noted. Tuberculosis screening: No symptoms or risk factors identified. Fall Risk None identified. Assessment: 18:00 General: SEE TRIAGE NOTE. bp 18:00 Neuro: Level of Consciousness is awake, alert, obeys commands, Oriented to Appropriate bp for age. 18:52 Reassessment: PT D/C HOME AMBULATORY WITH FAMILY, DX WITH FALL, ABRASION AND CONTUSION. bp Vital Signs: 16:38 BP 127 / 64; Pulse 73; Resp 16 S; Temp 98.1(TE); Pulse Ox 100% on R/A; Weight 88.45 kg ca1 (R); Height 5 ft. 2 in. (157.48 cm) (R); Pain 7/10; 18:00 BP 157 / 121; Pulse 75; Resp 17; Pulse Ox 100% ; bp 18:49 BP 174 / 58; Pulse 78; Resp 17; Pulse Ox 99% ; bp 16:38 Body Mass Index 35.67 (88.45 kg, 157.48 cm) ca1 ED Course: 15:58 Patient arrived in ED. ds1 16:44 Triage completed. ca1 16:49 Arm band placed on right wrist. ca1 17:57 [facility] kb 17:57 Dejuan Aiken MD is Attending Physician. kb 18:04 Austin Charles, RAFAEL is Primary Nurse. bp 18:10 Patient has correct armband on for positive identification. Bed in low position. Call bp light in reach. Side rails up X2. 18:45 Wound care: to abrasion, located on left foot and left leg and left cheung and left arm bp and left forearm was cleaned with Hibiclens, dressed with Neosporin, Patient tolerated well. 18:50 Foot Left 3 View XRAY In Process Unspecified. EDMS 18:53 No provider procedures requiring assistance completed. Patient did not have IV access bp during this emergency room visit. Administered Medications: 18:10 Drug: Tetanus-Diphtheria Toxoid Adult 0.5 ml {Folder Tier: [employer]. Exp: bp 10/11/2021. Lot #: [id number]. } Route: IM; Site: right deltoid; 18:47 Follow up: Response: No adverse reaction bp Outcome: 18:36 Discharge ordered by . kb 18:52 Discharged to home ambulatory, with family. bp 18:52 Condition: stable 18:52 Discharge instructions given to patient, Instructed on discharge instructions, follow up and referral plans. Demonstrated understanding of instructions, follow-up care. 19:00 Patient left the ED. bp Signatures: Dispatcher [employer] EDMS Becki Valdovinos, TALENT ACQUISITION SPECIALIST-C TALENT ACQUISITION SPECIALIST-Stephanie Maryann Rogers ds1 Austin Charles RN RN bp Mary Haywrad RN RN ca1 Corrections: (The following items were deleted from the chart) 18:53 18:52 Discharge instructions given to patient, Instructed on discharge instructions, bp follow up and referral plans. Demonstrated understanding of instructions, follow-up care, medications, Prescriptions given X 1, bp
--- NOTE | 2020-05-26 19:02 | RAD REPORT ---
EXAM DESCRIPTION: RAD - Foot Left 3 View - 05/26/2020 6:50 pm CLINICAL HISTORY: PAIN COMPARISON: Foot Left 3 View dated 11/05/2018 FINDINGS: Mild osteopenia is seen. No fracture or dislocation. Tiny plantar calcaneal spur.
[2020-05-26 19:16] VITALS: TEMP 98.1
[2020-05-26 19:18] VITALS: BP 174/58; O2SAT 99
== END 2020-05-26 19:00 | disposition home or self-care (01) ==
LOC: ER 15:56
DX: S50.812A Abrasion of left forearm, initial encounter (principal); S90.32XA Contusion of left foot, initial encounter; S50.12XA Contusion of left forearm, initial encounter; W10.9XXA Fall (on) (from) unspecified stairs and steps, initial encounter; Y93.01 Activity, walking, marching and hiking; Y92.9 Unspecified place or not applicable; I10 Essential (primary) hypertension; E11.9 Type 2 diabetes mellitus without complications; E78.5 Hyperlipidemia, unspecified; Z23 Encounter for immunization; Z79.82 Long term (current) use of aspirin; Z79.4 Long term (current) use of insulin; Z88.2 Allergy status to sulfonamides; Z95.1 Presence of aortocoronary bypass graft; Z95.4 Presence of other heart-valve replacement
CPT/HCPCS: 90471; 90714; 99283

== ENCOUNTER 2020-10-18 12:56 | Emergency (ER) | payer OTHER ==
--- OUTSIDE RECORDS SUMMARY | 2020-10-18 12:59 | XMS REPORT | Continuity of Care Document ---
:1950 Author Organization [facility] t Address [address] [place] [address] Care Team Providers Name Role Phone Sharpless Primary Care Physician ANISA Attending Clinician Unavailable Brianna PATRICIA Attending Clinician Unavailable ANISA Admitting Clinician Unavailable Brianna PATRICIA Admitting Clinician Unavailable Problems Condition Condition Condition Status Onset Resolution Last Treating Co mments Source Name Details Category Date Date Treatment Clinician Date (aortic (aortic Disease Active [facility] stenosis) stenosis) 6-15 [facility] - 00:00: Medical 00 Center Type II or Type II or Disease Active Overview : [facility] unspecifie 12-04 [facility] d type d type 00:00: from [facility] diabetes diabetes 00 Center mellitus mellitus without without mention of mention of complicati complicati on, not on, not stated as stated as uncontroll uncontroll ed ed Coronary Coronary Disease Active Overview: [facility] atheroscle atheroscle 12-04 [facility] - rosis of rosis of 00:00: from [facility] claribel andreafski andreafski 00 Center coronary coronary artery artery Mixed Mixed Disease Active Overview: [facility] hyperlipid hyperlipid 12-04 Converted [facility] - emia emia 00:00: from [facility] Medical Center Unspecifie Unspecifie Disease Active Overview : [facility] d d 12-04 [facility]verted [facility] - essential essential 00:00: from [facility] dical hypertensi hypertensi 00 nter on on Vitamin D Vitamin D Disease Active Overview: [facility] deficiency deficiency 4-18 Converted [facility] - 00:00: from Medical 00 ECWUPDATE Center D BY ICD10 SNOMED/IM O UPDATES Myalgia Myalgia Disease Active Overview: [facility] and and 09-21 Converted [facility] - myositis, myositis, 00:00: from [facility] dical unspecifie unspecifie 00 Ce nter d d Chest Chest Disease Active Overview: [facility] pain, pain, 09-08 Converted [facility] - unspecifie unspecifie 00:00: from [facility] d d 00 Center Valvular Valvular Disease Active Overview: [facility] heart heart Severe kes - disease disease Aortic Medical Stenosis Center Coronary Coronary Disease Active Overview: I St artery artery s/p ACB x [facility] - disease disease 3 01/04 [facility] COPD COPD Disease Active [facility] (chronic (chronic [facility] - obstructiv obstructiv Me dical e e Center pulmonary pulmonary disease) disease) Osteoarthr Osteoarthr Disease Active [facility] itis itis [facility] Obesity Obesity Disease Active [facility] Hyperlipid Hyperlipid Disease [facility] Disease Active [facility] on on [facility] Severe Severe Disease Active [facility] aortic aortic [facility] - stenosis stenosis Medica l Center Allergies, Adverse Reactions, Alerts Allergy Allergy Status Severity Reaction(s) Onset Inactive Treating Comm ents Source Name Type Date Date Clinician Sulfa Propensi Active Rash [facility] (Sulfona ty to 12-28 [facility] - mide adverse 00:00: Medical Antibiot reaction 00 Center ics) s Other Propensi Active Converted [facility] t ty to from [facility]; [facility] - adverse Sulfa - ; Medica l reaction Center s Family History Family Member Diagnosis Comments Start Date Stop Date Source Natural mother Cancer [facility] Natural brother Diabetes [facility] Natural father Diabetes [facility] Natural father Heart attack [facility] Natural father Hypertension [facility] Social History Social Habit Start Date Stop Date Quantity Comments Source Sex Assigned At [facility] Alcohol intake 2017-01-18 2017-01-[address] [facility] - 00:00:00 00:00:00 non-drinker of Medical Ce nter alcohol (finding) Tobacco use and 2017-01-18 2017-01-[address] [facility] [address] Meg kes - exposure 00:00:00 00:00:00 Medical Center Smoking Status Start Date Stop Date Source [facility] Medications Ordered Filled Start Stop Current Ordering Indication Dosage Frequency Signature Comments Components Source Medication Medication Date Date Medication? Clinician (SIG) Name Name evolocumab Yes 140mg Inject [address] [address] (REPATHA 6-16 mg [facility] - SURECLICK) 15:55: subcutaneo M edical 140 mg/mL 24 usly once Cente r PnIj every 2 weeks. biotin 1 mg Yes 1000ug QD Take 1,[address] tablet 6-16 mcg by [facility]ukes - 15:55: mouth Medical 24 daily. [place] amitriptyli Yes 25mg QD Take [address] ne (ELAVIL) 6-16 by mouth Luke s - 25 MG 15:55: nightly. Medical tablet 24 [place] hydroCHLORO Yes 25mg QD Take [address] thiazide 6-16 by mouth [facility] - (HYDRODIURI 15:55: daily. Medi claribel L) 25 MG 24 [place] tablet cholecalcif Yes 2000U QD Take 2,[address] abelardo, 6-16 Units by [facility] - vitamin D3, 15:55: mouth Medic al 2,000 unit 24 daily. [place] Tab multivitami Yes 1{tbl} QD Take [address] n per 6-16 tablet by [facility] - tablet 15:55: mouth Medical 24 daily. [place] cyanocobala Yes 1000ug QD Take 1,[address] min 6-16 mcg by [facility] - (VITAMIN 15:55: mouth Medical B-12) 1000 24 daily. [place] MCG tablet aspirin 81 Yes 81mg QD Take [address] MG EC 6-16 by mouth [facility] - tablet 15:55: daily. Medical 24 [place] pantoprazol Yes 40mg QD Take [address] e 6-16 by mouth [facility] - (PROTONIX) 15:55: daily. Medic al 40 MG 24 [place] tablet rosuvastati 2017-0 Yes 40mg QD Take [address] [facility] n (CRESTOR) 6-16 by mouth Luke s - 40 MG 15:55: daily. Medical tablet 24 Center carvedilol 2017-0 Yes 25mg Take [address] (COREG) 25 6-16 by mouth 2 [facility] es - MG tablet 15:55: (two) Medical 24 times Center daily with breakfast and dinner. metFORMIN 2017-0 Yes 1000mg Take 1,[address] (GLUCOPHAGE 6-16 mg by [facility] - ) 1000 MG 15:55: mouth 2 Medic al tablet 24 (two) Center times daily with breakfast and dinner. gemfibrozil 2017-0 Yes 600mg Q.5D Take [address] (LOPID) 600 6-16 mg by [facility] - MG tablet 15:55: mouth 2 Medic al 24 (two) Center times daily. glipiZIDE 2017-0 Yes 5mg QD Take [address] (GLUCOTROL 6-16 by mouth [facility] - XL) 2.5 MG 15:55: daily . Medi claribel 24 hr 24 Center tablet ezetimibe 2017-0 Yes 10mg QD Take [address] (ZETIA) 10 6-16 by mouth [facility] - mg tablet 15:55: daily. Medica l 24 Center SITagliptin 2017-0 Yes 25mg QD Take [address] (JANUVIA) 6-16 by mouth [facility] - 25 MG 15:55: daily. Medical tablet 24 Center Procedures This patient has no known procedures. Encounters Start End Encounter Admission Attending Care Care Encounter Source Date/Time Date/Time Type Type Clinicians Facility Department ID 2020-07-21 2020-07-21 Outpatient [facility] [id number] [address] [place] 00:00:00 00:00:00 [facility] [address] 2020-07-10 2020-07-10 Outpatient [facility] [id number] [place] 00:00:00 00:00:00 [facility] [address] 2020-06-23 2020-06-[address] [facility] [id number] [place] 00:00:00 00:00:00 [facility] [address] 2020-06-12 2020-06-12 Outpatient [facility] [id number] [place] 00:00:00 00:00:00 CAMIL[facility] [address] 2020-05-26 2020-05-26 Outpatient DOMINY, [facility] [id number] [address] [place] 00:00:00 00:00:00 [facility] [address] 2020-05-26 2020-05-26 Outpatient DOMINY, [facility] [id number] [address] [place] 00:00:00 00:00:00 [facility] [address] 2020-01-14 2020-01-14 Outpatient DOMINY, [facility] [id number] [address] [place] 00:00:00 00:00:00 [facility] [address] 2020-01-07 2020-01-07 Outpatient DOMINY, [facility] [id number] [place] 00:00:00 00:00:00 [facility] [address] 2020-01-02 2020-01-02 Outpatient DOMINY, [place] [id number] [place] 00:00:00 00:00:00 CAM[facility] [address] 2019-12-30 2019-12-30 Outpatient DOMINY, [facility] [id number] [address] [place] 00:00:00 00:00:00 CAMILA [address] 2019-09-24 2019-09-24 Outpatient DOMINY, [facility] [id number] [place] 00:00:00 00:00:00 CAMIL[facility] [address] 2019-09-03 2019-09-03 Outpatient DOMINY, [facility] [id number] [place] 00:00:00 00:00:00 [facility] [address] 2019-09-03 2019-09-03 Outpatient DOMINY, [facility] [id number] 6[address] [place] 00:00:00 00:00:00 [facility] [address] Results Test Description Test Time Test Comments Results Result Comments Source POCT-GLUCOSE METER 2017-01-13 12:53:00 Test Item Value Reference Range Interpretation Comme nts POC-GLUCOSE METER ([employer]) (test 202 mg/dL 70-110 H TESTED AT [facility] [address] [facility] code = 1538) [facility] 7703 0 POCT-GLUCOSE [id number] 07:45:00 Test Item Value Reference Range Interpretation Comments POC-GLUCOSE METER 203 mg/dL 70-110 H [facility] ([employer]) (test code = BERTNE R [facility] 1538) [id number] BASIC METABOLIC [id number] 02:30:00 Test Item Value Reference Range Interpretation [...] PATIEN TS. CBC W/PLT COUNT & AUTO [id number] 02:18:00 Test Item Value Reference Range Interpretation [...] L 0.00-0.20 (test code = 417) 0.00POCT-GLUCOSE [id number] 22:03:00 Test Item Value Reference Range Interpretation Comments POC-GLUCOSE METER 273 mg/dL 70-110 H TESTED AT [place] [address] [facility] (test code = [facility] Noah [facility] 1538) [id number] POCT-GLUCOSE [id number] 18:16:00 Test Item Value Reference Range Interpretation Comments POC-GLUCOSE METER 239 mg/dL 70-110 H TESTED AT [place] [address] [facility] (test code = [facility] 1538) [address] POCT-GLUCOSE [id number] 14:05:00 Test Item Value Reference Range Interpretation Comments POC-GLUCOSE METER 248 mg/dL 70-110 H TESTED AT [place] [address] ([facility]) (test code = [facility] 1538) [id number] SODIUM NA-STAT [id number] 10:03:00 Test Item Value Reference Range Interpretation Comments SODIUM (BEAKER) (test code = 381) 137 meq/L 135-148 POTASSIUM-STAT [id number] 10:03:00 Test Item Value Reference Range Interpretation Comments POTASSIUM (BEAKER) (test code = 3.8 meq/L 3.6-5.5 379) BLOOD GAS, [id number] 10:03:00 Test Item Value Reference Range Interpretation [...] (test code = 1819) 100.0 % GLUCOSE-STAT [id number] 10:03:00 Test Item Value Reference Range Interpretation Comments GLUCOSE RANDOM (BEAKER) (test code 174 mg/dL 70-110 H = 652) HGB/HCT (H&H) - STAT [id number] 10:03:00 Test Item Value Reference Range Interpretation Comments HEMOGLOBIN (BEAKER) (test code = 9.6 g/dL 12.0-15.0 L 410) HEMATOCRIT (BEAKER) (test code = 28.0 % 36.0-45.0 L 411) [id number] 09:50:00 Test Item Value Reference Range Interpretation Comments ACTIVATED CLOTTING TIME 204 sec TEST ED AT [facility] 6720 (BEAKER) (test code = JAIME Noah [place] 441) [address] B-TYPE NATRIURETIC FACTOR (BNP)2017-01-09 11:46:00 Test Item Value Reference Range Interpretation Comments B-TYPE NATRIURETIC PEPTIDE (BEAKER) 155 pg/mL 0-100 H (test code = 700) BASIC METABOLIC [id number] 11:41:00 Test Item Value Reference Range Interpretation [...] S NOT APPLICABLE FOR DIALYSIS PATIEN TS. [id number] 11:41:00 Test Item Value Reference Range Interpretation Comments ALBUMIN (BEAKER) (test code = 1145) 4.2 g/dL 3.5-5.0 PROTHROMBIN [id number] 11:24:00 Test Item Value Reference Range Interpretation [...] K/ L 0.00-0.20 (test code = 417) [id number] 10:57:00 Test Item Value Reference Range Interpretation Comments POC-CREATININE 0.8 mg/dL 0.6-1.3 TESTED AT [facility] 6720 (BEAKER) (test [place] code = 6232) [id number] POC-EGFR (BEAKER) 71 mL/min/1.73M2 (test code = 7723)
--- NOTE | 2020-10-18 15:05 | RAD REPORT ---
EXAM DESCRIPTION: US - Extremity Venous Uni Ltd - 10/18/2020 2:54 pm CLINICAL HISTORY: pain and swelling, right lower extremity COMPARISON: None. TECHNIQUE: Real-time sonographic evaluation of the right lower extremity deep venous systems was per formed. FINDINGS: Normal compressibility, flow augmentation, phasic flow and spontaneous flow are identified in the right lower extremity common femoral, superficial femoral, popliteal and posterior tibial vei ns. No intraluminal filling defects seen. A 3 x 1.5 centimeter popliteal fossa cyst is present. No cy st rupture or hemorrhage. IMPRESSION: No DVT in the right lower extremity.
--- NOTE | 2020-10-18 15:10 | ER ---
Nurse's Notes [facility] Name: Margo Valdovinos Age: 70 yrs Sex: Female : 1950 Arrival Date: 10/18/2020 Time: 13:00 Bed 13 Private MD: Diagnosis: Pain in right leg;Synovial cyst of popliteal space [Morrison], right knee Presentation: 10/18 13:07 Chief complaint: Patient states: R leg pain x 1 week, Pain behind knee, pain is ca1 aggravated by weight bearing, repositioning. At the end of the day, swelling is noted on R ankle, R calf. Reports HX of DVT on L leg. Coronavirus screen: Client denies travel out of the [place] in the last 14 days. At this time, the client does not indicate any symptoms associated with coronavirus-19. Ebola Screen: Patient negative for fever greater than or equal to 101.5 degrees Fahrenheit, and additional compatible Ebola Virus Disease symptoms Patient denies exposure to infectious person. Patient denies travel to an Ebola-affected area in the 21 days before illness onset. No symptoms or risks identified at this time. Initial Sepsis Screen: Does the patient meet any 2 criteria? No. Patient's initial sepsis screen is negative. Does the patient have a suspected source of infection? No. Patient's initial sepsis screen is negative. Risk Assessment: Do you want to hurt yourself or someone else? Patient reports no desire to harm self or others. Onset of symptoms was October 18, 2020. 13:07 Method Of Arrival: Wheelchair ca1 13:07 Acuity: NATALI 3 ca1 Historical: - Allergies: 13:11 Sulfa (Sulfonamide Antibiotics); ca1 - Home Meds: 13:22 amitriptyline 25 mg Oral tab 1 tab once daily [Active]; aspirin 81 mg Oral TbEC 1 tab ca1 once daily [Active]; carvedilol 25 mg Oral tab 1 tab 2 times per day [Active]; clopidogrel 75 mg Oral tab 1 tab once daily [Active]; ezetimibe 10 mg Oral 1 tab once daily [Active]; rosuvastatin 40 mg Oral tab 1 tab once daily [Active]; Vitamin C Oral [Active]; pantoprazole 40 mg Oral TbEC 1 tab once daily [Active]; losartan-hydrochlorothiazide 50-12.5 mg oral tab 1 tab once daily [Active]; hydroxychloroquine 200 mg oral tab 1 tab once daily [Active]; metformin 1,000 mg Oral tab 1 tab 2 times per day [Active]; folic acid 1 mg Oral tab 1 tab once daily [Active]; Vitamin D3 2,000 unit oral tab daily [Active]; Vitamin B-12 5000 mcg Oral daily [Active]; Citracal Oral [Active]; CoQ-10 100 mg Oral cap [Active]; Methotrexate (Anti-Rheumatic) Oral 2.5 mg [Active]; Novolin 70/30 [place] Sub-Q [Active]; - PMHx: 13:11 Diabetes - IDDM; CAD; Diabetes - NIDDM; Hyperlipidemia; Hypertension; DVT; ca1 - PSHx: 13:11 Tonsillectomy; Hysterectomy; breast reductions; CABG; aortic Valve Replacememt; ca1 - Immunization history:: Client reports receiving the 2nd dose of the Covid vaccine, Date received: August 2020 Pneumococcal vaccine is up to date, Flu vaccine is up to date. - Social history:: Smoking status: Patient denies any tobacco usage or history of. Patient/guardian denies using alcohol, street drugs, The patient lives with family. - Family history:: not pertinent. Screenin:47 Abuse screen: Denies threats or abuse. Denies injuries from another. Nutritional iw screening: No deficits noted. Tuberculosis screening: No symptoms or risk factors identified. Fall Risk None identified. Assessment: 13:50 General: Appears in no apparent distress. Behavior is calm, cooperative. Pain: iw Complains of pain in right calf and posterior aspect of right knee. Neuro: Level of Consciousness is awake, alert, obeys commands, Oriented to person, place, time, situation, Moves all extremities. Cardiovascular: Patient's skin is warm and dry. Respiratory: Respiratory effort is even, unlabored, Respiratory pattern is regular, symmetrical. GI:. Derm: Skin is intact. Musculoskeletal: Range of motion: intact in all extremities. 14:36 Reassessment: Patient appears in no apparent distress at this time. Patient and/or iw family updated on plan of care and expected duration. Pain level reassessed. Patient is alert, oriented x 3, equal unlabored respirations, skin warm/dry/pink. US at bedside. Vital Signs: 13:07 BP 132 / 69; Pulse 63; Resp 16 S; Temp 97.7(TE); Pulse Ox 97% on R/A; Weight 91.63 kg ca1 (R); Height 5 ft. 2 in. (157.48 cm) (R); Pain 7/10; 13:07 Body Mass Index 36.95 (91.63 kg, 157.48 cm) ca1 ED Course: 13:00 Patient arrived in ED. as 13:09 Becki Valdovinos FNP-C [facility] kb 13:09 Nafisa Green MD is Attending Physician. kb 13:10 Triage completed. ca1 13:11 Arm band placed on right wrist. ca1 13:27 Nafisa Green MD is Attending Physician. ma2 14:12 Estefany Gil, RN is Primary Nurse. iw 14:54 US Extremity Venous Unilateral Ltd In Process Unspecified. EDMS 15:10 Ryan Tsai MD is Referral Physician. ma2 15:20 Patient has correct armband on for positive identification. iw 15:20 No provider procedures requiring assistance completed. Patient did not have IV access iw during this emergency room visit. Administered Medications: No medications were administered Outcome: 15:10 Discharge ordered by . ma2 15:20 Discharged to home ambulatory. iw 15:20 Condition: good 15:20 Discharge instructions given to patient, Instructed on discharge instructions, follow up and referral plans. medication usage, Demonstrated understanding of instructions, follow-up care, medications, Prescriptions given X 1. 15:21 Patient left the ED. iw Signatures: Dispatcher [employer] EDNY Becki Valdovinos FNP-C FNP-Ana Fields as Estefany Gil, RN RN iw Nafisa Green MD MD maMary Tanner RN RN ca1
--- NOTE | 2020-10-18 15:11 | EDPHYS ---
Physician Documentation [facility] Name: Margo Valdovinos Age: 70 yrs Sex: Female : 1950 Arrival Date: 10/18/2020 Time: 13:00 Bed 13 Private MD: ED Physician Nafisa Green HPI: 10/18 13:47 This 70 yrs old Female presents to ER via Wheelchair with complaints of Leg ma2 Pain, Leg Swelling. 13:47 The patient presents with pain, swelling. The complaints affect the posterior aspect of ma2 right knee and right calf. Onset: The symptoms/episode began/occurred gradually, 1 day(s) ago. Associated signs and symptoms: Pertinent positives: swelling, Pertinent negatives calf tenderness, fever, nausea, numbness, rash, tingling, vomiting, warmth, weakness. Severity of symptoms: At their worst the symptoms were severe, in the emergency department the symptoms have improved. patient takes plavix, she declined pain rx in er . Historical: - Allergies: 13:11 Sulfa (Sulfonamide Antibiotics); ca1 - Home Meds: 13:22 amitriptyline 25 mg Oral tab 1 tab once daily [Active]; aspirin 81 mg Oral TbEC 1 tab ca1 once daily [Active]; carvedilol 25 mg Oral tab 1 tab 2 times per day [Active]; clopidogrel 75 mg Oral tab 1 tab once daily [Active]; ezetimibe 10 mg Oral 1 tab once daily [Active]; rosuvastatin 40 mg Oral tab 1 tab once daily [Active]; Vitamin C Oral [Active]; pantoprazole 40 mg Oral TbEC 1 tab once daily [Active]; losartan-hydrochlorothiazide 50-12.5 mg oral tab 1 tab once daily [Active]; hydroxychloroquine 200 mg oral tab 1 tab once daily [Active]; metformin 1,000 mg Oral tab 1 tab 2 times per day [Active]; folic acid 1 mg Oral tab 1 tab once daily [Active]; Vitamin D3 2,000 unit oral tab daily [Active]; Vitamin B-12 5000 mcg Oral daily [Active]; Citracal Oral [Active]; CoQ-10 100 mg Oral cap [Active]; Methotrexate (Anti-Rheumatic) Oral 2.5 mg [Active]; Novolin 70/30 [place] Sub-Q [Active]; - PMHx: 13:11 Diabetes - IDDM; CAD; Diabetes - NIDDM; Hyperlipidemia; Hypertension; DVT; ca1 - PSHx: 13:11 Tonsillectomy; Hysterectomy; breast reductions; CABG; aortic Valve Replacememt; ca1 - Immunization history:: Client reports receiving the 2nd dose of the Covid vaccine, Date received: August 2020 Pneumococcal vaccine is up to date, Flu vaccine is up to date. - Social history:: Smoking status: Patient denies any tobacco usage or history of. Patient/guardian denies using alcohol, street drugs, The patient lives with family. - Family history:: not pertinent. ROS: 13:47 Constitutional: Negative for fever, chills, and weight loss. ma2 13:47 All other systems are negative. Exam: 13:47 Constitutional: This is a well developed, well nourished patient who is awake, alert, ma2 and in no acute distress. ENT: Nares patent. No nasal discharge, no septal abnormalities noted. Tympanic membranes are normal and external auditory canals are clear. Oropharynx with no redness, swelling, or masses, exudates, or evidence of obstruction, uvula midline. Mucous membranes moist. Neck: Trachea midline, no thyromegaly or masses palpated, and no cervical lymphadenopathy. Supple, full range of motion without nuchal rigidity, or vertebral point tenderness. No Meningismus. Chest/axilla: Normal chest wall appearance and motion. Nontender with no deformity. No lesions are appreciated. Cardiovascular: Regular rate and rhythm with a normal S1 and S2. No gallops, murmurs, or rubs. Normal PMI, no JVD. No pulse deficits. Respiratory: Lungs have equal breath sounds bilaterally, clear to auscultation and percussion. No rales, rhonchi or wheezes noted. No increased work of breathing, no retractions or nasal flaring. Abdomen/GI: Soft, non-tender, with normal bowel sounds. No distension or tympany. No guarding or rebound. No evidence of tenderness throughout. Skin: Warm, dry with normal turgor. Normal color with no rashes, no lesions, and no evidence of cellulitis. MS/ Extremity: right calf is swollen mildly, no signs of cellulitis of fluctuence , Pulses equal, no cyanosis. Neurovascular intact. Full, normal range of motion. Neuro: Awake and alert, GCS 15, oriented to person, place, time, and situation. Cranial nerves II-XII grossly intact. Motor strength 5/5 in all extremities. Sensory grossly intact. Cerebellar exam normal. Normal gait. Vital Signs: 13:07 BP 132 / 69; Pulse 63; Resp 16 S; Temp 97.7(TE); Pulse Ox 97% on R/A; Weight 91.63 kg ca1 (R); Height 5 ft. 2 in. (157.48 cm) (R); Pain 7/10; 13:07 Body Mass Index 36.95 (91.63 kg, 157.48 cm) ca1 MDM: 13:09 Patient medically screened. kb 13:19 ED course: Pt refuses to see anyone other than an MD. Dr Green notified. . kb 13:47 Differential diagnosis: contusion, abrasion, tendonitis, dvt. ED course: i explain need ma2 for a repeated us to rule out dvt in the next 4 days as fresh clots may not show in initial study.. . 15:09 Data reviewed: vital signs, nurses notes. Counseling: I had a detailed discussion with ma2 the patient and/or guardian regarding: the historical points, exam findings, and any diagnostic results supporting the discharge/admit diagnosis, the presence of at least one elevated blood pressure reading (>120/80) during this emergency department visit, the need for outpatient follow up. Response to treatment: the patient's symptoms have markedly improved after treatment. 10/18 13:46 Order name: US Extremity Venous Unilateral Ltd; Complete Time: 15:10 ma2 Administered Medications: No medications were administered Disposition: 10/18/20 15:10 Discharged to Home. Impression: Pain in right leg, Synovial cyst of popliteal space [Morrison], right knee. - Condition is Stable. - Discharge Instructions: Morrison Cyst, Musculoskeletal Pain, Heat Therapy, [id number]. - Prescriptions for Diclofenac Sodium 75 mg Oral Tablet Sustained Release - take 1 tablet by ORAL route 2 times per day; 30 tablet. - Medication Reconciliation Form, Thank You Letter, Antibiotic Education, Prescription Opioid Use form. - Follow up: Ryan Tsai; When: Tomorrow; Reason: Continuance of care. - Notes: See your primary care doctor in 3 to 6 days for a repeated ultrasound study of your right leg to rule out deep venous thrombosis and possible MRI if painpersists. Thankyou. Addendum: 10/22/2020 19:32 Co-signature as Attending Physician, Nafisa Green MD. m a2 Signatures: Dispatcher [employer] Becki López, CUSTOMER RETENTION REPRESENTATIVE-C CUSTOMER RETENTION REPRESENTATIVE-Estefany Trent RN RN iw Nafisa Green MD MD ma2 Mary Hayward RN RN ca1 Corrections: (The following items were deleted from the chart) 10/18 15:21 15:10 10/18/2020 15:10 Discharged to Home. Impression: Pain in right leg; Synovial cyst iw of popliteal space [Morrison], right knee. Condition is Stable. Discharge Instructions: Pain Without a Known Cause, Heat Therapy, [id number]. Prescriptions for Diclofenac Sodium 75 mg Oral Tablet Sustained Release - take 1 tablet by ORAL route 2 times per day; 30 tablet. and Forms are Medication Reconciliation Form, Thank You Letter, Antibiotic Education, Prescription Opioid Use. Follow up: Ryan Tsai; When: Tomorrow; Reason: Continuance of care. ma2
[2020-10-18 15:38] VITALS: BP 132/69; TEMP 97.7; O2SAT 97
== END 2020-10-18 15:21 | disposition home or self-care (01) ==
LOC: ER 12:56
DX: M71.21 Synovial cyst of popliteal space [Baker], right knee (principal); I10 Essential (primary) hypertension; E11.9 Type 2 diabetes mellitus without complications; Z86.718 Personal history of other venous thrombosis and embolism; Z95.1 Presence of aortocoronary bypass graft; Z95.4 Presence of other heart-valve replacement; Z79.01 Long term (current) use of anticoagulants; Z79.82 Long term (current) use of aspirin; Z79.4 Long term (current) use of insulin; Z88.2 Allergy status to sulfonamides
CPT/HCPCS: 93971; 99283

== ENCOUNTER 2020-11-09 08:16 | Day surgery (SDC) | payer OTHER ==
--- NOTE | 2020-11-05 11:57 | RAD REPORT ---
EXAM DESCRIPTION: Ursula Flanagan And Isa (2 Views)11/05/2020 11:50 am CLINICAL HISTORY: Preop for cardiac catheterization. Hypertension COMPARISON: 2019 FINDINGS: The lungs appear clear of acute infiltrate. The heart is mildly enlarged. Postsurgical ch anges involve the chest. Calcified granulomas left lung IMPRESSION: No acute abnormalities displayed
[2020-11-05 12:20] LABS: Absolute Lymphocytes (CBC) 1.5 K/uL (0.7-4.9); Basophils % 0.5 % (0-1.3); Hematocrit 35.3 % (36.0-45.0); Lymphocytes % 16.1 % (15.3-44.8); RBC Red Blood Cell Count 3.99 M/uL (3.86-4.86)
[2020-11-05 12:31] LABS: Protime INR 1.05
[2020-11-05 12:37] LABS: Potassium 4.5 mmol/L (3.5-5.1)
[2020-11-09] MEDS ORDERED: NA CHLORIDE 0.9% 500 ML ONE (08:43)
[2020-11-09 09:12] VITALS: TEMP 96.4
[2020-11-09] MEDS ORDERED: LIDOCAINE 1% 20 ML MDV ONE (09:21)
[2020-11-09] MEDS ORDERED: HEPA 1000U/500MLS 0 UNIT/0 ML BAG IV ONE (09:21)
[2020-11-09] MEDS ORDERED: NA CHLORIDE 0.9% 0 ML ONE (09:22)
[2020-11-09] MEDS ORDERED: ATROPINE SULF 1 MG/10 ML SYR IV ONE (09:22)
[2020-11-09] MEDS ORDERED: MIDAZOLAM HCL 2 MG/2 ML INJ ONE ×2 (09:23→09:53)
[2020-11-09] MEDS ORDERED: FENTANYL CITR 100 MCG/2 ML ONE (09:23)
[2020-11-09] MEDS ORDERED: HEPA 1000U/500MLS 1,000 UNIT/500 ML BAG IV ONE (09:54)
[2020-11-09 11:10] VITALS: O2SAT 96
[2020-11-09 11:46] VITALS: BP 170/68
--- NOTE | 2020-11-09 12:26 | OP ---
Date of Procedure: 11/09/2020 Surgeon: Ciaran Torres MD Refrigeration Service Inspector: Jody Nguyen. Procedures: Left heart catheterization, selective coronary arteriogram, vein graft injection to the obtuse marginal and a diagonal, injection of the left internal mammary artery, bilateral selective ca rotid angiogram. Indications: CAD, abnormal stress test, CVD, abnormal carotid Doppler. Indication And Procedure In Detail: Ms. Valdovinos is a 70-year-old woman with history of TAVR, CABG, h ypertension, dyslipidemia, diabetes, positive carotid Doppler, shortness of breath, and positive stre ss test, brought to the laboratory worker today as an outpatient, prepped and draped in routine sterile fashio n, given Versed for sedation. A 6-Irish sheath was introduced in the right common femoral artery us ing the Seldinger technique. 10 cc of Xylocaine were given. Initially, the JL4 was used to do the d iagnostic catheterization and was noted 100% occlusion of the LAD, 90% occlusion of the proximal circ umflex. The JR4 catheter was then used to cannulate the right coronary artery, which showed a 50% pr oximal RCA, it was right dominant. We then cannulated the vein graft to the OM which was patent. Th e vein graft to the diagonal was 100% occluded and we proceeded to inject the WRIGHT and that was paten t to the LAD. The JR4 catheter was then moved and selected the right common carotid artery, which sh owed that the carotid artery on the right common was normal, the right external carotid artery was no rmal. The right internal carotid artery had a 50% to 60% stenosis with a kink in it. The JR4 cathet er was then moved to the left common carotid. The left common carotid was normal. The left ICA was normal. She had a 90% stenosis on the left external carotid artery. There were no complications. Blood Loss: 5 mL. Anesthesia: Total conscious sedation was 45 minutes. Final Diagnosis: Severe coronary artery disease and cardiovascular disease, status post transcathete r aortic valve replacement. Plan: Plan is for medical therapy. The patient will remain in the hospital for 2 hours after bedres t. Angio-Seal was used to close the case. APARNA/ALEXIA Voice ID: [id number] Report ID: [id number]
== END 2020-11-09 12:07 | disposition home or self-care (01) ==
LOC: CCL 08:16
DX: I25.10 Atherosclerotic heart disease of native coronary artery without angina pectoris (principal); I25.810 Atherosclerosis of coronary artery bypass graft(s) without angina pectoris; I25.82 Chronic total occlusion of coronary artery; I65.23 Occlusion and stenosis of bilateral carotid arteries; I10 Essential (primary) hypertension; I45.10 Unspecified right bundle-branch block; E78.2 Mixed hyperlipidemia; E11.9 Type 2 diabetes mellitus without complications; E66.9 Obesity, unspecified; Z68.36 Body mass index [BMI] 36.0-36.9, adult; Z95.2 Presence of prosthetic heart valve; Z88.2 Allergy status to sulfonamides; Z20.822 Contact with and (suspected) exposure to COVID-19
CPT/HCPCS: 93005; 85025; 80048; 36415; 85610; 82947; 85730; 71046; 93454; 36222; U0003; C1893; C1760; J2250; J3010; J7040; J1644; J0583

== ENCOUNTER 2023-01-07 17:38 | Emergency (ER) | payer OTHER ==
--- OUTSIDE RECORDS SUMMARY | 2023-01-07 17:43 | XMS REPORT | Continuity of Care Document ---
:1950 Author Organization [facility] t Address [address] [facility]. [address] [place] [address] Care Team Providers Name Role Phone Ryan Londono Primary Care Physician RYAN HERRON Attending Clinician Unavailable AMBREEN_FARHANA Attending Clinician Unavailable VENKATA GAINES Attending Clinician Unavailable Vaccine, [facility] Family [facility] Attending Clinician Unavailable Venkata Gaines DO Attending Clinician RADIOLOGY Attending Clinician Unavailable Radiology Attending Clinician Unavailable Doctor Unassigned, [place] Attending Clinician Unavailable Nurse, Adc Pob Immunization Attending Clinician Unavailable KAYLAH DESAI Attending Clinician Unavailable RICHMOND CARTWRIGHT Attending Clinician Unavailable MD RICHMOND CARTWRIGHT Attending Clinician Unavailable Lindsay Lazo MD Attending Clinician LINDSAY LAZO Attending Clinician Unavailable RODO QUEEN Attending Clinician Unavailable CAMILA LANGE Attending Clinician Unavailable MD CAMILA LANGE Attending Clinician Unavailable ANY PATRICIA Attending Clinician Unavailable RYAN HERRON Admitting Clinician Unavailable AMBREEN_FARHANA Admitting Clinician Unavailable JOSE C SALINAS Admitting Clinician Unavailable RICHMOND CARTWRIGHT Admitting Clinician Unavailable NIKITA VALE Admitting Clinician Unavailable CAMILA LANGE Admitting Clinician Unavailable MD CAMILA LANGE AMI Admitting Clinician Unavailable ANY PATRICIA Admitting Clinician Unavailable Payers Payer Name Policy Type Policy Number Effective Date Expiration Date Joselyn juarez MEDICARE PART A \T\ [id number] 2012 B 00:00:00 COMMERCIAL [id number] 2017 NON-CONTRACT 00:00:00 GENERIC Problems Condition Condition Condition Status Onset Resolution Last Treating Co mments Source Name Details Category Date Date Treatment Clinician Date Acute Acute Disease Active Overview: [facility] i medial medial 6-[address] meniscus meniscus 00:00: g of this Hos richard tear of tear of 00 note l right knee right knee might be different from the original. 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 0-29 ity of mellitus mellitus 00:00: [place] with with 00 Medical cardiac cardiac Branch complicati complicati on on Dyslipidem Dyslipidem Disease Active 2017-07 U nivers ia ia 0-29 ity of 00:00: [place] 00 Medical Branch Essential Essential Disease Active 2017-07 Uni vers hypertensi hypertensi 0-29 it y of on on 00:00: [place] 00 Medical Branch (aortic (aortic Disease Active [facility] stenosis) stenosis) 6-15 [facility] 00:00: Medical 00 Center Aortic Aortic Disease Active 2015-07 [facility] valve valve 1-03 st stenosis stenosis 00:00: Hospit a 00 l Chronic Chronic Disease Active 2015-07 [facility] coronary coronary 1-03 st artery artery 00:00: Hospita disease disease 00 l Type II or Type II or Disease Active Overview : [facility] unspecifie unspecifie 5-07 [facility] d type d type 00:00: g of this Medical diabetes diabetes 00 note Center mellitus mellitus might be without without different mention of mention of from the complicati complicati original. on, not on, not Converted stated as stated as from [facility] uncontroll uncontroll ed ed Coronary Coronary Disease Active Overview: [facility] atheroscle atheroscle 12-04 [facility] rosis of rosis of 00:00: g of [facility] Med ical [place] [facility] coronary coronary might be artery artery different from the original. Converted from [facility] Mixed Mixed Disease Active Overview: [facility] hyperlipid hyperlipid 12-04 Formattin [facility] emia emia 00:00: g of this Medical 00 note Center might be different from the original. Converted from [facility] Unspecifie Unspecifie Disease Active Overview : [facility] d d 12-04 [facility] essential essential 00:00: g of this M edical hypertensi hypertensi 00 note Ce nter on on might be different from the original. Converted from [facility] Vitamin D Vitamin D Disease Active Overview: [facility] deficiency deficiency - [facility] 00:[facility]: g of this Medical 00 note Center might be different from the original. [facility]IM O UPDATES Myalgia Myalgia Disease Active Overview: [facility] and and 09-21 [facility] myositis, myositis, 00:00: g of this M edical unspecifie unspecifie 00 note Ce nter d d might be different from the original. Converted from [facility] Chest Chest Disease Active Overview: [facility] pain, pain, 09-08 [facility] unspecifie unspecifie 00:00: g of this Medical d d 00 note Center might be different from the original. Converted from [facility] COPD COPD Disease Recurre [facility] (chronic (chronic nhe [facility] obstructiv obstructiv Me dical e e Center pulmonary pulmonary disease) disease) Valvular Valvular Disease Active Overview: [facility] heart heart [facility] disease disease g of this Medic al note Center might be different from the original. Severe Aortic Stenosis Osteoarthr Osteoarthr Disease Active [facility] itis itis [facility] Obesity Obesity Disease Active [facility] Hyperlipid Hyperlipid Disease Active C [facility] emia emia [facility] Hypertensi Hypertensi Disease Active C [facility] on on [facility] Severe Severe Disease Active [facility] aortic aortic [facility] stenosis stenosis Medica l Center Allergies, Adverse Reactions, Alerts Allergy Allergy Status Severity Reaction(s) Onset Inactive Treating Comm ents Source Name Type Date Date Clinician SULFA Drug Active Low Rash Univers (SULFONA Class 5-31 ity of MIDE 00:00: [place] ANTIBIOT 00 Medical ICS) Branch Sulfa Propensi Active Rash Univers (Sulfona ty to 5-31 ity of mide adverse 00:00: [place] Antibiot reaction 00 Medica l ics) s Branch Sulfa Propensi Active Rash [facility] (Sulfona ty to 5-31 [facility] mide adverse 00:00: Medical Antibiot reaction 00 Center ics) s Sulfa Propensi Active Rash 2015-07 [facility] (Sulfona ty to 03 st mide adverse 00:00: Hospita Antibiot reaction 00 l ics) s to drug Other Propensi Active Converted [facility] t ty to from [facility]; [facility] adverse Sulfa - ; Medica l reaction Center s Family History Family Member Diagnosis Comments Start Date Stop Date Source Natural father Diabetes [facility] Natural father Heart attack [facility] Natural father Hypertension [facility] Natural father Heart attack [facility] Natural mother Cancer [facility] Natural mother Cancer [facility] Natural mother Heart disease [facility] Natural brother Diabetes [facility] Maternal Diabetes [facility] Other Coronary artery [facility] Social History Social Habit Start Date Stop Date Quantity Comments Source Exposure to Not sure University SARS-CoV-2 (event) [place] [facility] History SDOH University o f Alcohol Comment [place] [facility] History SDOH University o f Alcohol Std Drinks [place] [facility] History [facility] University o f Alcohol Binge [place] [facility] History of tobacco Passive smoker [facility] Sexual orientation [facility] History of Social 2022-11-03 2022-11-[address] function 00:00:00 00:00:00 Hospital Alcohol intake 2021-01-25 2021-01-25 Current [facility] 00:00:00 00:00:00 non-drinker of Hospital alcohol (finding) History SDOH 2020-11-19 2020-11-19 1 University o f Alcohol Frequency 00:00:00 00:00:00 [facility] Tobacco use and 2017-10-17 2017-10-17 Never used Universit y of exposure 00:00:00 00:00:[address] [facility] Sex [birth year] [facility] 00:00:00 00:00:00 Hospital Smoking Status Start Date Stop Date Source Never smoker [facility] Medications Ordered Filled Start Stop Current Ordering Indication Dosage Frequency Signature Comments Components Source Medication Medication Date Date Medication? Clinician (SIG) Name Name aspirin Yes Take 1 [facility] (ECOTRIN) 6-[address] 81 MG 13:35: every day Hospita enteric 49 by oral l coated route. tablet pantoprazol Yes 40mg QD Take 40 mg Methodi e 6-[address] (PROTONIX) 13:35: daily. Hospi ta 40 MG EC 49 l tablet rosuvastati Yes 20mg QD Take 20 mg Methodi n (CRESTOR) 6-[address] 20 MG 13:35: nightly. Hospita tablet 49 l cyanocobala Yes 5000ug QD Take 5,000 [facility] min 1000 6-[address] MCG tablet 13:35: mouth Hospit a 49 daily. l ubidecareno Yes 100mg QD Take 100 M ethodi ne (CO Q-10 6-[address] ORAL) 13:35: mouth Hospita 49 daily. l NON Yes mitochondr [facility] FORMULARY 6-[address] 13:35: booster 4 Hospita 49 day. l calcium Yes Take by [facility] phosphate 6-[address] trib/vit D3 13:35: Hospit a (CITRACAL + 49 l D3, CALCIUM PHOS, ORAL) clopidogreL Yes 75mg QD Take 75 mg [facility] (PLAVIX) 75 6-[address] mg tablet 13:35: daily. Hospit a 49 l ezetimibe Yes 10mg QD Take 10 mg Me thodi (ZETIA) 10 6-[address] mg tablet 13:35: daily. Hospit a 49 l hydroxychlo 2021-0 Yes 200mg Q.5D Take 200 M ethodi roquine 6-[address] (PLAQUENIL) 13:35: mouth 2 Hos richard 200 mg 49 (two) l tablet times a day. predniSONE 2020-0 Yes 5mg Q24H Take 5 mg Me thodi (DELTASONE) 6-[address] 5 mg tablet 13:35: daily as Ho spita 49 needed. l psyllium 202-0 Yes [facility] (Fiber-Caps 6-18 st , psyllium 13:35: Hospita husk,) 0.52 49 l gram capsule ascorbic 2020-0 Yes Take by Method i acid 6-[address] (VITAMIN C 13:35: Hospita ORAL) 49 l alpha 2020-0 Yes Take by Methodi lipoic acid 6-[address] (LIPOIC 13:35: Hospita ACID ORAL) 49 l cholecalcif 2020-0 Yes Take by Met landon abelardo, 6-[address] vitamin D3, 13:35: Hospit a (VITAMIN D3 49 l ORAL) FOLIC ACID 2020-0 Yes Take by Meth juan ORAL 6-[address] 13:35: Hospita 49 l losartan-hy 2020-0 Yes 1{tbl} QD Take 1 Me thodi drochloroth 6-[address] iazide 13:35: mouth Hospita (Hyzaar) 49 daily. l 50-12.5 mg per tablet glucosamine 2020-0 Yes Take by Met landon /chondro rocha 6-[address] A (COSAMIN 13:35: Hospita DS ORAL) 49 l methotrexat 2020-0 Yes Q7D Take by Met landon e 2.5 MG 6-[address] tablet 13:35: a week. Hospita 49 l insulin 2020-0 Yes Inject Methodi 70/30 NPH 6-[address] and regular 13:35: skin. Hospi ta human 49 l (HumuLIN 70/30) 100 unit/mL (70-30) injection gabapentin 2020-0 Yes 100mg Q.[id number] Take 100 [facility] (NEURONTIN) 6-18 [id number] mg by s t 100 mg 13:35: 3D mouth 3 Hospita capsule 49 (three) l times a day. aspirin 81 2021-0 Yes Take 1 Unive rs mg EC 4-29 tablet ity of tablet 20:36: every day [place] [id number] by oral Medical route. Branch Biotin 1 mg Yes 1000ug Take 1,000 Univers Tab 4-29 mcg by ity of 20:36: mouth. [address] gemfibrozil Yes 600mg Take 600 U nivers 600 mg 4-29 mg by ity of tablet 20:36: mouth. [address] hydroCHLORO Yes 25mg Take 25 mg Univers thiazide 25 4-29 by mouth. ity of mg tablet 20:36: [address] pantoprazol Yes 40mg Take 40 mg Univers e 40 mg EC 4-29 by mouth. ity of tablet 20:36: [address] rosuvastati Yes 20mg Take 20 mg Univers n 20 mg 4-29 by mouth. ity of tablet 20:36: [address] cyanocobala Yes [address] Place Uni vers min, 11-26 2,500 mcg ity of vitamin 20:36: under the [place] B-12, 5,000 tongue. Medic al mcg Subl Branch Cholecalcif Yes Vitamin D3 Univers abelardo, 11-26 2,000 unit ity of Vitamin D3, 20:36: capsule Elfego as 2,000 unit Medical capsule [place] ezetimibe Yes 10mg Take 10 mg Un andre 10 mg 4-29 by mouth. ity of tablet 20:36: [address] aspirin 81 Yes Take 1 Unive rs mg EC 4-29 tablet ity of tablet 20:36: every day [place] [id number] by oral Medical route. Branch Biotin 1 mg Yes 1000ug Take 1,000 Univers Tab 4-29 mcg by ity of 20:36: mouth. [address] gemfibrozil Yes 600mg Take 600 U nivers 600 mg 4-29 mg by ity of tablet 20:36: mouth. [address] hydroCHLORO Yes 25mg Take 25 mg Univers thiazide 25 4-29 by mouth. ity of mg tablet 20:36: [address] pantoprazol Yes 40mg Take 40 mg Univers e 40 mg EC 4-29 by mouth. ity of tablet 20:36: [address] rosuvastati Yes 20mg Take 20 mg Univers n 20 mg 4-29 by mouth. ity of tablet 20:36: [address] cyanocobala Yes [address] Place Uni vers min, - 2,500 mcg ity of vitamin 20:36: under the [place] B-12, tongue. Medic al mcg Subl Branch Cholecalcif Yes Vitamin D3 Univers abelardo, - 2,000 unit ity of Vitamin D3, 20:36: capsule Elfego as 2,000 unit Medical capsule Branch ezetimibe Yes 10mg Take 10 mg Un andre 10 mg 4-29 by mouth. ity of tablet 20:36: [address] aspirin 81 Yes Take 1 Unive rs mg EC 4-29 tablet ity of tablet 20:36: every day [place] [address] by oral Medical route. Branch Biotin 1 mg Yes 1000ug Take 1,000 Univers Tab 4-29 mcg by ity of 20:36: mouth. [address] gemfibrozil Yes 600mg Take 600 U nivers 600 mg 4-29 mg by ity of tablet 20:36: mouth. [address] hydroCHLORO Yes 25mg Take 25 mg Univers thiazide 25 4-29 by mouth. ity of mg tablet 20:36: [address] pantoprazol Yes 40mg Take 40 mg Univers e 40 mg EC 4-29 by mouth. ity of tablet 20:36: [address] rosuvastati Yes 20mg Take 20 mg Univers n 20 mg 4-29 by mouth. ity of tablet 20:36: [address] cyanocobala Yes [address] Place Uni vers min, - 2,500 mcg ity of vitamin 20:36: under the [place] B-12, tongue. Medic al mcg Subl Branch Cholecalcif Yes Vitamin D3 Univers abelardo, 4-29 2,000 unit ity of Vitamin D3, 20:36: capsule Elfego as 2,000 unit Medical capsule Branch ezetimibe Yes 10mg Take 10 mg Un andre 10 mg 4-29 by mouth. ity of tablet 20:36: [address] aspirin 81 Yes Take 1 Unive rs mg EC 4-29 tablet ity of tablet 20:36: every day [place] [address] by oral Medical route. Branch Biotin 1 mg Yes 1000ug Take 1,000 Univers Tab 4-29 mcg by ity of 20:36: mouth. [address] gemfibrozil Yes 600mg Take 600 U nivers 600 mg 4-29 mg by ity of tablet 20:36: mouth. [address] hydroCHLORO Yes 25mg Take 25 mg Univers thiazide 25 4-29 by mouth. ity of mg tablet 20:36: [address] pantoprazol Yes 40mg Take 40 mg Univers e 40 mg EC 4-29 by mouth. ity of tablet 20:36: [address] rosuvastati Yes 20mg Take 20 mg Univers n 20 mg 4-29 by mouth. ity of tablet 20:36: [address] cyanocobala Yes [address] Place Uni vers min, 11-26 2,500 mcg ity of vitamin 20:36: under the [place] B-12, 5,000 tongue. Medic al mcg Subl Branch Cholecalcif Yes Vitamin D3 Univers abelardo, 11-26 2,000 unit ity of Vitamin D3, 20:36: capsule Elfego as 2,000 unit Medical capsule [place] ezetimibe Yes 10mg Take 10 mg Un andre 10 mg 4-29 by mouth. ity of tablet 20:36: [address] aspirin 81 Yes Take 1 Unive rs mg EC 4-29 tablet ity of tablet 20:36: every day [place] [address] by oral Medical route. Branch Biotin 1 mg Yes 1000ug Take 1,000 Univers Tab 4-29 mcg by ity of 20:36: mouth. [address] gemfibrozil Yes 600mg Take 600 U nivers 600 mg 4-29 mg by ity of tablet 20:36: mouth. [address] hydroCHLORO Yes 25mg Take 25 mg Univers thiazide 25 4-29 by mouth. ity of mg tablet 20:36: [address] pantoprazol Yes 40mg Take 40 mg Univers e 40 mg EC 4-29 by mouth. ity of tablet 20:36: [address] rosuvastati Yes 20mg Take 20 mg Univers n 20 mg 4-29 by mouth. ity of tablet 20:36: [address] cyanocobala Yes [address] Place Uni vers min, 4- 2,500 mcg ity of vitamin 20:36: under the [place] B-12, 5,000 27 tongue. Medic al mcg Subl Branch Cholecalcif Yes Vitamin D3 Univers abelardo, - 2,000 unit ity of Vitamin D3, 20:36: capsule Elfego as 2,[address] [place] [address] capsule Branch ezetimibe Yes 10mg Take 10 mg Un andre 10 mg 4-29 by mouth. ity of tablet 20:36: [address] aspirin 81 Yes Take 1 Unive rs mg EC 4- tablet ity of tablet 20:36: every day [place] [address] by oral Medical route. Branch Biotin 1 mg Yes 1000ug Take 1,000 Univers Tab 4-29 mcg by ity of 20:36: mouth. [address] gemfibrozil Yes 600mg Take 600 U nivers 600 mg 4-29 mg by ity of tablet 20:36: mouth. [address] hydroCHLORO Yes 25mg Take 25 mg Univers thiazide 25 4-29 by mouth. ity of mg tablet 20:36: [address] pantoprazol Yes 40mg Take 40 mg Univers e 40 mg EC 4-29 by mouth. ity of tablet 20:36: [address] rosuvastati Yes 20mg Take 20 mg Univers n 20 mg 4-29 by mouth. ity of tablet 20:36: [address] cyanocobala Yes [address] Place Uni vers min, 4-29 2,500 mcg ity of vitamin 20:36: under the [place] B-12, 5,000 27 tongue. Medic al mcg Subl Branch Cholecalcif Yes Vitamin D3 Univers abelardo, - 2,000 unit ity of Vitamin D3, 20:36: capsule Elfego as 2,000 unit 27 Medical capsule Branch ezetimibe Yes 10mg Take 10 mg Un andre 10 mg 4-29 by mouth. ity of tablet 20:36: [address] aspirin 81 Yes Take 1 Unive rs mg EC 4-29 tablet ity of tablet 20:36: every day [place] [address] by oral Medical route. Branch Biotin 1 mg Yes 1000ug Take 1,000 Univers Tab 4-29 mcg by ity of 20:36: mouth. [address] gemfibrozil Yes 600mg Take 600 U nivers 600 mg 4-29 mg by ity of tablet 20:36: mouth. [address] hydroCHLORO Yes 25mg Take 25 mg Univers thiazide 25 4-29 by mouth. ity of mg tablet 20:36: [address] pantoprazol Yes 40mg Take 40 mg Univers e 40 mg EC 4-29 by mouth. ity of tablet 20:36: [address] rosuvastati Yes 20mg Take 20 mg Univers n 20 mg 4-29 by mouth. ity of tablet 20:36: [address] cyanocobala Yes [address] Place Uni vers min, 11-26 2,500 mcg ity of vitamin 20:36: under the [place] B-12, 5,000 27 tongue. Medic al mcg Subl Branch Cholecalcif Yes Vitamin D3 Univers abelardo, - 2,000 unit ity of Vitamin D3, 20:36: capsule Elfego as 2,000 unit Medical capsule [place] ezetimibe Yes 10mg Take 10 mg Un andre 10 mg 4-29 by mouth. ity of tablet 20:36: [address] aspirin 81 Yes Take 1 Unive rs mg EC 4-29 tablet ity of tablet 15:36: every day [place] [address] by oral Medical route. Branch Biotin 1 mg Yes 1000ug Take 1,000 Univers Tab 4-29 mcg by ity of 15:36: mouth. [address] gemfibrozil Yes 600mg Take 600 U nivers 600 mg 4-29 mg by ity of tablet 15:36: mouth. [address] hydroCHLORO Yes 25mg Take 25 mg Univers thiazide 25 4-29 by mouth. ity of mg tablet 15:36: [address] pantoprazol Yes 40mg Take 40 mg Univers e 40 mg EC 4-29 by mouth. ity of tablet 15:36: [address] rosuvastati Yes 20mg Take 20 mg Univers n 20 mg 4-29 by mouth. ity of tablet 15:36: [address] cyan[address]a Yes [address] Place Uni vers min, 4-29 2,500 mcg ity of vitamin 15:36: under the [place] B-12, tongue. Medic al mcg Subl Branch Cholecalcif Yes Vitamin D3 Univers abelardo, - 2,000 unit ity of Vitamin D3, 15:36: capsule Elfego as 2,000 unit Medical capsule [place] ezetimibe Yes 10mg Take 10 mg Un andre 10 mg 4-29 by mouth. ity of tablet 15:36: [address] aspirin 81 Yes Take 1 Unive rs mg EC 4-29 tablet ity of tablet 15:36: every day [place] [address] by oral Medical route. Branch Biotin 1 mg Yes 1000ug Take 1,000 Univers Tab 4-29 mcg by ity of 15:36: mouth. [address] gemfibrozil Yes 600mg Take 600 U nivers 600 mg 4-29 mg by ity of tablet 15:36: mouth. [address] hydroCHLORO Yes 25mg Take 25 mg Univers thiazide 25 4-29 by mouth. ity of mg tablet 15:36: [address] pantoprazol Yes 40mg Take 40 mg Univers e 40 mg EC 4-29 by mouth. ity of tablet 15:36: [address] rosuvastati Yes 20mg Take 20 mg Univers n 20 mg 4-29 by mouth. ity of tablet 15:36: [address] cyan[address]obala Yes [address] Place Uni vers min, - 2,500 mcg ity of vitamin 15:36: under the [place] B-12, ,000 27 tongue. Medic al mcg Subl Branch Cholecalcif Yes Vitamin D3 Univers abelardo, 4-29 2,000 unit ity of Vitamin D3, 15:36: capsule Elfego as 2,000 unit Medical capsule [place] ezetimibe Yes 10mg Take 10 mg Un andre 10 mg 4-29 by mouth. ity of tablet 15:36: [address] aspirin 81 Yes Take 1 Unive rs mg EC 4-29 tablet ity of tablet 15:36: every day [place] [address] by oral Medical route. Branch Biotin 1 mg Yes 1000ug Take 1,000 Univers Tab 4-29 mcg by ity of 15:36: mouth. [address] gemfibrozil Yes 600mg Take 600 U nivers 600 mg 4-29 mg by ity of tablet 15:36: mouth. [address] hydroCHLORO Yes 25mg Take 25 mg Univers thiazide 25 4-29 by mouth. ity of mg tablet 15:36: [address] pantoprazol Yes 40mg Take 40 mg Univers e 40 mg EC 4-29 by mouth. ity of tablet 15:36: [address] rosuvastati Yes 20mg Take 20 mg Univers n 20 mg 4-29 by mouth. ity of tablet 15:36: [address] cyan[address]obala Yes [address] Place Uni vers min, 4-29 2,500 mcg ity of vitamin 15:36: under the [place] B-12, 5,000 27 tongue. Medic al mcg Subl Branch Cholecalcif Yes Vitamin D3 Univers abelardo, 4-29 2,000 unit ity of Vitamin D3, 15:36: capsule Elfego as 2,[address] [place] [address] capsule [place] ezetimibe Yes 10mg Take 10 mg Un andre 10 mg 4-29 by mouth. ity of tablet 15:36: [address] rosuvastati 2017-07 Yes 20mg Take 20 mg Univers n 20 mg 0-29 by mouth. ity of tablet 14:36: [address] cyanocobala 2017-[address] Uni vers min, 0-29 2,500 mcg ity of vitamin 14:36: under the [place] B-12, 5,000 50 tongue. Medic al mcg Subl Branch Cholecalcif 2017-07 Yes Vitamin D3 Univers abelardo, 0-29 2,000 unit ity of Vitamin D3, 14:36: capsule Elfego as 2,000 unit 50 Medical capsule Branch ezetimibe 2017-07 Yes 10mg Take 10 mg Un andre 10 mg 0-29 by mouth. ity of tablet 14:36: [address] aspirin 81 2017-07 Yes Take 1 Unive rs mg EC 0-29 tablet ity of tablet 14:36: every day [place] [address] by oral Medical route. Branch Biotin 1 mg 2017-07 Yes 1000ug Take 1,000 Univers Tab 0-29 mcg by ity of 14:36: mouth. [address] gemfibrozil 2017-07 Yes 600mg Take 600 U nivers 600 mg 0-29 mg by ity of tablet 14:36: mouth. [address] hydroCHLORO 2017-07 Yes 25mg Take 25 mg Univers thiazide 25 0-29 by mouth. ity of mg tablet 14:36: [address] pantoprazol 2017-07 Yes 40mg Take 40 mg Univers e 40 mg EC 0-29 by mouth. ity of tablet 14:36: [address] rosuvastati 2017-07 Yes 20mg Take 20 mg Univers n 20 mg 0-29 by mouth. ity of tablet 14:36: [address] cyanocobala 2017-[address] Uni vers min, 0-29 2,500 mcg ity of vitamin 14:36: under the [place] B-12, 5,000 50 tongue. Medic al mcg Subl Branch Cholecalcif 2017-07 Yes Vitamin D3 Univers abelardo, 0-29 2,000 unit ity of Vitamin D3, 14:36: capsule Elfego as 2,000 unit Medical capsule Branch ezetimibe 2017-07 Yes 10mg Take 10 mg Un andre 10 mg 0-29 by mouth. ity of tablet 14:36: [address] aspirin 81 2017-07 Yes Take 1 Unive rs mg EC 0-29 tablet ity of tablet 14:36: every day [place] [address] by oral Medical route. Branch Biotin 1 mg 2017-07 Yes 1000ug Take 1,000 Univers Tab 0-29 mcg by ity of 14:36: mouth. [address] gemfibrozil 2017-07 Yes 600mg Take 600 U nivers 600 mg 0-29 mg by ity of tablet 14:36: mouth. [address] hydroCHLORO 2017-07 Yes 25mg Take 25 mg Univers thiazide 25 0-29 by mouth. ity of mg tablet 14:36: [address] pantoprazol 2017-07 Yes 40mg Take 40 mg Univers e 40 mg EC 0-29 by mouth. ity of tablet 14:36: [address] insulin NPH 2017-07 Yes [id number] Inject 8 Univers 100 unit/mL 0-29 units in ity of injection 00:00: morning [place] 00 and 6 Medical units at [place] bedtime. Inject 12 hours apart Insulin 2017-07 Yes [id number] Use as Univ ers Syringe-Nee 0-29 directed. ity of dle U-100 00:00: Twice [place] (INSULIN 00 daily with Medic al SYRINGE) insulin N Branch 1/2 mL 30 gauge x 5/16 Syrg blood sugar 2017-07 Yes Use as Univ ers diagnostic 0-29 directed. ity of (ONETOUCH 00:00: Check [place] ULTRA BLUE 00 twice Medical TEST STRIP) daily. E Bran ch strip 11.59 insulin NPH 2017-07 Yes [id number] Inject 8 Univers 100 unit/mL 0-29 units in ity of injection 00:00: morning [place] 00 and 6 Medical units at [place] bedtime. Inject 12 hours apart Insulin 2017-07 Yes [id number] Use as Univ ers Syringe-Nee 0-29 directed. ity of dle U-100 00:00: Twice [place] (INSULIN 00 daily with Medic al SYRINGE) insulin N Branch 1/2 mL 30 gauge x 5/16 Syrg blood sugar 2017-07 Yes Use as Univ ers diagnostic 0-29 directed. ity of (ONETOUCH 00:00: Check [place] ULTRA BLUE 00 twice Medical TEST STRIP) daily. E Bran ch strip 11.59 insulin NPH 2017-07 Yes [id number] Inject 8 Univers 100 unit/mL 0-29 units in ity of injection 00:00: morning [place] 00 and 6 Medical units at [place] bedtime. Inject 12 hours apart Insulin 2017-07 Yes [id number] Use as Univ ers Syringe-Nee 0-29 directed. ity of dle U-100 00:00: Twice [place] (INSULIN 00 daily with Medic al SYRINGE) insulin N Branch 1/2 mL 30 gauge x 5/16 Syrg blood sugar 2017-07 Yes Use as Univ ers diagnostic 0-29 directed. ity of (ONETOUCH 00:00: Check [place] ULTRA BLUE 00 twice Medical TEST STRIP) daily. E Bran ch strip 11.59 insulin NPH 2017-07 Yes [id number] Inject 8 Univers 100 unit/mL 0-29 units in ity of injection 00:00: morning [place] 00 and 6 Medical units at Branch bedtime. Inject 12 hours apart Insulin 2017-07 Yes [id number] Use as Univ ers Syringe-Nee 0-29 directed. ity of dle U-100 00:00: Twice [place] (INSULIN 00 daily with Medic al SYRINGE) insulin N Branch 1/2 mL 30 gauge x 5/16 Syrg blood sugar 2017-07 Yes Use as Univ ers diagnostic 0-29 directed. ity of (ONETOUCH 00:00: Check [place] ULTRA BLUE 00 twice Medical TEST STRIP) daily. E Bran ch strip 11.59 insulin NPH 2017-07 Yes [id number] Inject 8 Univers 100 unit/mL 0-29 units in ity of injection 00:00: morning [place] 00 and 6 Medical units at Branch bedtime. Inject 12 hours apart Insulin 2017-07 Yes [id number] Use as Univ ers Syringe-Nee 0-29 directed. ity of dle U-100 00:00: Twice [place] (INSULIN 00 daily with Medic al SYRINGE) insulin N Branch 1/2 mL 30 gauge x 5/16 Syrg blood sugar 2017-07 Yes Use as Univ ers diagnostic 0-29 directed. ity of (ONETOUCH 00:00: Check [place] ULTRA BLUE 00 twice Medical TEST STRIP) daily. E Bran ch strip 11.59 insulin NPH 2017-07 Yes [id number] Inject 8 Univers 100 unit/mL 0-29 units in ity of injection 00:00: morning [place] 00 and 6 Medical units at Branch bedtime. Inject 12 hours apart Insulin 2017-07 Yes [id number] Use as Univ ers Syringe-Nee 0-29 directed. ity of dle U-100 00:00: Twice [place] (INSULIN 00 daily with Medic al SYRINGE) insulin N Branch 1/2 mL 30 gauge x 5/16 Syrg blood sugar 2017-07 Yes Use as Univ ers diagnostic 0-29 directed. ity of (ONETOUCH 00:00: Check [place] ULTRA BLUE 00 twice Medical TEST STRIP) daily. E Bran ch strip 11.59 insulin NPH 2017-07 Yes [id number] Inject 8 Univers 100 unit/mL 0-29 units in ity of injection 00:00: morning [place] 00 and 6 Medical units at Branch bedtime. Inject 12 hours apart Insulin 2017-07 Yes [id number] Use as Univ ers Syringe-Nee 0-29 directed. ity of dle U-100 00:00: Twice [place] (INSULIN 00 daily with Medic al SYRINGE) insulin N Branch 1/2 mL 30 gauge x 5/16 Syrg blood sugar 2017-07 Yes Use as Univ ers diagnostic 0-29 directed. ity of (ONETOUCH 00:00: Check [place] ULTRA BLUE 00 twice Medical TEST STRIP) daily. E Bran ch strip 11.59 insulin NPH 2017-07 Yes [id number] Inject 8 Univers 100 unit/mL 0-29 units in ity of injection 00:00: morning [place] 00 and 6 Medical units at Branch bedtime. Inject 12 hours apart Insulin 2017-07 Yes [id number] Use as Univ ers Syringe-Nee 0-29 directed. ity of dle U-100 00:00: Twice [place] (INSULIN 00 daily with Medic al SYRINGE) insulin N Branch 1/2 mL 30 gauge x 5/16 Syrg blood sugar 2017-07 Yes Use as Univ ers diagnostic 0-29 directed. ity of (ONETOUCH 00:00: Check [place] ULTRA BLUE 00 twice Medical TEST STRIP) daily. E Bran ch strip 11.59 insulin NPH 2017-07 Yes [id number] Inject 8 Univers 100 unit/mL 0-29 units in ity of injection 00:00: morning [place] 00 and 6 Medical units at Branch bedtime. Inject 12 hours apart Insulin 2017-07 Yes [id number] Use as Univ ers Syringe-Nee 0-29 directed. ity of dle U-100 00:00: Twice [place] (INSULIN 00 daily with Medic al SYRINGE) insulin N Branch 1/2 mL 30 gauge x 5/16 Syrg blood sugar 2017-07 Yes Use as Univ ers diagnostic 0-29 directed. ity of (ONETOUCH 00:00: Check [place] ULTRA BLUE 00 twice Medical TEST STRIP) daily. E Bran ch strip 11.59 insulin NPH 2017-07 Yes [id number] Inject 8 Univers 100 unit/mL 0-29 units in ity of injection 00:00: morning [place] 00 and 6 Medical units at Branch bedtime. Inject 12 hours apart Insulin 2017-07 Yes [id number] Use as Univ ers Syringe-Nee 0-29 directed. ity of dle U-100 00:00: Twice [place] (INSULIN 00 daily with Medic al SYRINGE) insulin N Branch 1/2 mL 30 gauge x 5/16 Syrg blood sugar 2017-07 Yes Use as Univ ers diagnostic 0-29 directed. ity of (ONETOUCH 00:00: Check [place] ULTRA BLUE 00 twice Medical TEST STRIP) daily. E Bran ch strip 11.59 insulin NPH 2017-07 Yes [id number] Inject 8 Univers 100 unit/mL 0-29 units in ity of injection 00:00: morning [place] 00 and 6 Medical units at Branch bedtime. Inject 12 hours apart Insulin 2017-07 Yes [id number] Use as Univ ers Syringe-Nee 0-29 directed. ity of dle U-100 00:00: Twice [place] (INSULIN 00 daily with Medic al SYRINGE) insulin N Branch 1/2 mL 30 gauge x 5/16 Syrg blood sugar 2017-07 Yes Use as Univ ers diagnostic 0-29 directed. ity of (ONETOUCH 00:00: Check [place] ULTRA BLUE 00 twice Medical TEST STRIP) daily. E Bran ch strip 11.59 insulin NPH 2017-07 Yes [id number] Inject 8 Univers 100 unit/mL 0-29 units in ity of injection 00:00: morning [place] 00 and 6 Medical units at Branch bedtime. Inject 12 hours apart Insulin 2017-07 Yes [id number] Use as Univ ers Syringe-Nee 0-29 directed. ity of dle U-100 00:00: Twice [place] (INSULIN 00 daily with Medic al SYRINGE) insulin N Branch 1/2 mL 30 gauge x 5/16 Syrg blood sugar 2017-07 Yes Use as Univ ers diagnostic 0-29 directed. ity of (ONETOUCH 00:00: Check [place] ULTRA BLUE 00 twice Medical TEST STRIP) daily. E Bran ch strip 11.59 glipiZIDE Yes Take 1 Univer s XL 5 mg 24 7-25 tablet ity of hr tablet 00:00: twice a [place] day with Medical breakfast Branch and dinner. Take 1 extra pill if next blood sugar check is more than 180. glipiZIDE Yes Take 1 Univer s XL 5 mg 24 7-25 tablet ity of hr tablet 00:00: twice a [place] day with Medical breakfast Branch and dinner. Take 1 extra pill if next blood sugar check is more than 180. glipiZIDE Yes Take 1 Univer s XL 5 mg 24 7-25 tablet ity of hr tablet 00:00: twice a day with Medical breakfast Branch and dinner. Take 1 extra pill if next blood sugar check is more than 180. glipiZIDE Yes Take 1 Univer s XL 5 mg 24 7-25 tablet ity of hr tablet 00:00: twice a day with Medical breakfast Branch and dinner. Take 1 extra pill if next blood sugar check is more than 180. glipiZIDE Yes Take 1 Univer s XL 5 mg 24 7-25 tablet ity of hr tablet 00:00: twice a day with Medical breakfast Branch and dinner. Take 1 extra pill if next blood sugar check is more than 180. glipiZIDE Yes Take 1 Univer s XL 5 mg 24 7-25 tablet ity of hr tablet 00:00: twice a day with Medical breakfast Branch and dinner. Take 1 extra pill if next blood sugar check is more than 180. glipiZIDE Yes Take 1 Univer s XL 5 mg 24 7-25 tablet ity of hr tablet 00:00: twice a day with Medical breakfast Branch and dinner. Take 1 extra pill if next blood sugar check is more than 180. glipiZIDE Yes Take 1 Univer s XL 5 mg 24 7-25 tablet ity of hr tablet 00:00: twice a day with Medical breakfast Branch and dinner. Take 1 extra pill if next blood sugar check is more than 180. glipiZIDE Yes Take 1 Univer s XL 5 mg 24 7-25 tablet ity of hr tablet 00:00: twice a day with Medical breakfast Branch and dinner. Take 1 extra pill if next blood sugar check is more than 180. glipiZIDE Yes Take 1 Univer s XL 5 mg 24 7-25 tablet ity of hr tablet 00:00: twice a day with Medical breakfast Branch and dinner. Take 1 extra pill if next blood sugar check is more than 180. glipiZIDE Yes Take 1 Univer s XL 5 mg 24 7-25 tablet ity of hr tablet 00:00: twice a day with Medical breakfast Branch and dinner. Take 1 extra pill if next blood sugar check is more than 180. glipiZIDE Yes Take 1 Univer s XL 5 mg 24 7-25 tablet ity of hr tablet 00:00: twice a day with Medical breakfast Branch and dinner. Take 1 extra pill if next blood sugar check is more than 180. Blood Yes [id number] Use as Univer s Glucose 6-25 directed ity of Control, 00:00: [place] Normal (OT 00 Medical ULTRA/FASTT Branch RACK CONTROL) Soln Blood-Gluco Yes [id number] Use as Univers se Meter 6-25 directed ity of (ONETOUCH 00:00: [place] ULTRA2) [facility] Blood Yes [id number] Use as Univer s Glucose 6-25 directed ity of Control, 00:00: [place] Normal (OT 00 Medical ULTRA/FASTT Branch RACK CONTROL) Soln Blood-Gluco Yes [id number] Use as Univers se Meter 6-25 directed ity of (ONETOUCH 00:00: [place] ULTRA2) [facility] Blood Yes [id number] Use as Univer s Glucose 6-25 directed ity of Control, 00:00: [place] Normal (OT 00 Medical ULTRA/FASTT Branch RACK CONTROL) Soln Blood-Gluco Yes [id number] Use as Univers se Meter 6-25 directed ity of (ONETOUCH 00:00: [place] ULTRA2) [facility] Blood Yes [id number] Use as Univer s Glucose 6-25 directed ity of Control, 00:00: [place] Normal (OT 00 Medical ULTRA/FASTT Branch RACK CONTROL) Soln Blood-Gluco Yes [id number] Use as Univers se Meter 6-25 directed ity of (ONETOUCH 00:00: [place] ULTRA2) [facility] Blood Yes [id number] Use as Univer s Glucose 6-25 directed ity of Control, 00:00: [place] Normal (OT 00 Medical ULTRA/FASTT Branch RACK CONTROL) Soln Blood-Gluco Yes [id number] Use as Univers se Meter 6-25 directed ity of (ONETOUCH 00:00: [place] ULTRA2) [facility] Blood Yes [id number] Use as Univer s Glucose 6-25 directed ity of Control, 00:00: [place] Normal (OT 00 Medical ULTRA/FASTT Branch RACK CONTROL) Soln Blood-Gluco Yes [id number] Use as Univers se Meter 6-25 directed ity of (ONETOUCH 00:00: [place] ULTRA2) [facility] Blood Yes [id number] Use as Univer s Glucose 6-25 directed ity of Control, 00:00: [place] Normal (OT 00 Medical ULTRA/FASTT Branch RACK CONTROL) Soln Blood-Gluco Yes [id number] Use as Univers se Meter 6-25 directed ity of (ONETOUCH 00:00: [place] ULTRA2) [facility] Blood Yes [id number] Use as Univer s Glucose 6-25 directed ity of Control, 00:00: [place] Normal (OT 00 Medical ULTRA/FASTT Branch RACK CONTROL) Soln Blood-Gluco Yes [id number] Use as Univers se Meter 6-25 directed ity of (ONETOUCH 00:00: [place] ULTRA2) [facility] Blood Yes [id number] Use as Univer s Glucose 6-25 directed ity of Control, 00:00: [place] Normal (OT 00 Medical ULTRA/FASTT Branch RACK CONTROL) Soln Blood-Gluco Yes [id number] Use as Univers se Meter 6-25 directed ity of (ONETOUCH 00:00: [place] ULTRA2) [facility] Blood Yes [id number] Use as Univer s Glucose 6-25 directed ity of Control, 00:00: [place] Normal (OT 00 Medical ULTRA/FASTT Branch RACK CONTROL) Soln Blood-Gluco 2017- Yes [id number] Use as Univers se Meter 6-25 directed ity of (ONETOUCH 00:00: [place] ULTRA2) [facility] Blood Yes [id number] Use as Univer s Glucose 6-25 directed ity of Control, 00:00: [place] Normal (OT 00 Medical ULTRA/FASTT Branch RACK CONTROL) Soln Blood-Gluco 2017- Yes [id number] Use as Univers se Meter 6-25 directed ity of (ONETOUCH 00:00: [place] ULTRA2) [facility] Blood Yes [id number] Use as Univer s Glucose 6-25 directed ity of Control, 00:00: [place] Normal (OT 00 Medical ULTRA/FASTT Branch RACK CONTROL) Soln Blood-Gluco Yes [id number] Use as Univers se Meter 6-25 directed ity of (ONETOUCH 00:00: [place] ULTRA2) [facility] metFORMIN Yes TK 1 T PO Uni vers 1,000 mg 3-21 TWO TIMES ity of tablet 00:00: A DAY. [facility] metFORMIN Yes TK 1 T PO Uni vers 1,000 mg 3-21 TWO TIMES ity of tablet 00:00: A DAY. [facility] metFORMIN Yes TK 1 T PO Uni vers 1,000 mg 3-21 TWO TIMES ity of tablet 00:00: A DAY. [facility] metFORMIN Yes TK 1 T PO Uni vers 1,000 mg 3-21 TWO TIMES ity of tablet 00:00: A DAY. [facility] metFORMIN Yes TK 1 T PO Uni vers 1,000 mg 3-21 TWO TIMES ity of tablet 00:00: A DAY. [place] [facility] metFORMIN Yes TK 1 T PO Uni vers 1,000 mg 3-21 TWO TIMES ity of tablet 00:00: A DAY. [facility] metFORMIN Yes TK 1 T PO Uni vers 1,000 mg 3-21 TWO TIMES ity of tablet 00:00: A DAY. [place] [facility] metFORMIN Yes TK 1 T PO Uni vers 1,000 mg 3-21 TWO TIMES ity of tablet 00:00: A DAY. [place] [facility] metFORMIN Yes TK 1 T PO Uni vers 1,000 mg 3-21 TWO TIMES ity of tablet 00:00: A DAY. [place] [facility] metFORMIN 2017- Yes TK 1 T PO Uni vers 1,000 mg 3-21 TWO TIMES ity of tablet 00:00: A DAY. [place] [facility] metFORMIN Yes TK 1 T PO Uni vers 1,000 mg 3-21 TWO TIMES ity of tablet 00:00: A DAY. [place] [facility] metFORMIN Yes TK 1 T PO Uni vers 1,000 mg 3-21 TWO TIMES ity of tablet 00:00: A DAY. [address] evolocumab 2017 Yes 140mg Inject [address] [facility] (REPATHA 6-16 mg [facility] SURECLICK) 15:55: subcutaneo M edical 140 mg/mL 24 usly once Anyi noah [place] every 2 weeks. biotin 1 mg 2017 Yes 1000ug QD Take 1,[address] [facility] tablet 6-16 mcg by [facility] 15:55: mouth Medical 24 daily. [place] amitriptyli 2017 Yes 25mg QD Take [address] [facility] ne (ELAVIL) 6-16 by mouth Luke s 25 MG 15:55: nightly. Medical tablet 24 [place] hydroCHLORO 2017 Yes 25mg QD Take [address] thiazide 6-16 by mouth [facility] (HYDRODIURI 15:55: daily. Medi claribel L) 25 MG 24 Center tablet cholecalcif Yes 2000U QD Take 2,[address] [facility] abelardo, 6-16 Units by [facility] vitamin D3, 15:55: mouth Medic al 2,000 unit 24 daily. [place] Tab multivitami Yes 1{tbl} QD Take [address] n per 6-16 tablet by [facility] tablet 15:55: mouth Medical 24 daily. [place] cyanocobala Yes 1000ug QD Take 1,[address] [facility] min 6-16 mcg by [facility] (VITAMIN 15:55: mouth Medical B-12) 1000 24 daily. [place] MCG tablet aspirin 81 2017 Yes 81mg QD Take [address] MG EC 6-16 by mouth [facility] tablet 15:55: daily. Medical 24 [place] pantoprazol Yes 40mg QD Take [address] [facility] e 6-16 by mouth [facility] (PROTONIX) 15:55: daily. Medic al 40 MG 24 Center tablet rosuvastati 2017 Yes 40mg QD Take [address] [facility] n (CRESTOR) 6-16 by mouth Luke s 40 MG 15:55: daily. Medical tablet 24 Center carvedilol [id number] Yes 25mg Take [address] (COREG) 25 6-16 by mouth 2 [place] es MG tablet 15:55: (two) Medical 24 times Center daily with breakfast and dinner. metFORMIN 2017 Yes 1000mg Take 1,[address] [facility] [address] (GLUCOPHAGE 6-16 mg by [facility] ) 1000 MG 15:55: mouth 2 Medic al tablet 24 (two) Center times daily with breakfast and dinner. gemfibrozil 2017-0 Yes 600mg Q.5D Take [address] (LOPID) 600 6-16 mg by [facility] MG tablet 15:55: mouth 2 Medic al 24 (two) Center times daily. glipiZIDE 2017-0 Yes 5mg QD Take [address] [facility] (GLUCOTROL 6-16 by mouth [facility] XL) 2.5 MG 15:55: daily . Medi claribel 24 hr 24 Center tablet ezetimibe 2016-0 Yes 10mg QD Take [address] (ZETIA) 10 6-16 by mouth [facility] mg tablet 15:55: daily. Medica l 24 Center SITagliptin Yes 25mg QD Take [address] (JANUVIA) 6-16 by mouth [facility] 25 MG 15:55: daily. Medical tablet 24 Center carvedilol 2015-07 Yes 25mg 25 mg. Unive rs 25 mg 0-20 ity of tablet 00:00: [address] carvedilol 2015-07 Yes 25mg 25 mg. Unive rs 25 mg 0-20 ity of tablet 00:00: [address] carvedilol 2015-07 Yes 25mg 25 mg. Unive rs 25 mg 0-20 ity of tablet 00:00: [address] carvedilol 2015-07 Yes 25mg 25 mg. Unive rs 25 mg 0-20 ity of tablet 00:00: [address] carvedilol 2015-07 Yes 25mg 25 mg. Unive rs 25 mg 0-20 ity of tablet 00:00: [address] carvedilol 2015-07 Yes 25mg 25 mg. Unive rs 25 mg 0-20 ity of tablet 00:00: [address] carvedilol 2015-07 Yes 25mg 25 mg. Unive rs 25 mg 0-20 ity of tablet 00:00: [address] carvedilol 2015-07 Yes 25mg 25 mg. Unive rs 25 mg 0-20 ity of tablet 00:00: [address] carvedilol 2015-07 Yes 25mg 25 mg. Unive rs 25 mg 0-20 ity of tablet 00:00: [address] carvedilol 2015-07 Yes 25mg 25 mg. Unive rs 25 mg 0-20 ity of tablet 00:00: [place] 00 Medical Branch carvedilol 2015-07 Yes 25mg 25 mg. Unive rs 25 mg 0-20 ity of tablet 00:00: [place] 00 Medical Branch carvedilol 2015-07 Yes 25mg 25 mg. Unive rs 25 mg 0-20 ity of tablet 00:00: [place] 00 Medical Branch carvedilol 2015-07 Yes 25mg Q.5D 25 mg 2 Meth juan (COREG) 25 0-20 (two) st MG tablet 00:00: times a Hospi ta 00 day with l meals. metFORMIN Yes TK 1 T PO Met hodi (GLUCOPHAGE 03-[address] ) 1000 MG 00:00: A DAY. Hospit a tablet 00 l amitriptyli Yes TK 1 T PO M ethodi ne (ELAVIL) 03-[address] 25 MG 00:00: Hospita tablet 00 l Immunizations Ordered Filled Immunization Date Status Comments [facility] e Immunization Name Name SARS-COV-2 COVID-19 2021-11-30 Completed Unive rsity of PFIZER MARTI-SUCROSE 00:00:00 [facility] ([place]) Branch SARS-COV-2 COVID-19 2021-04-01 Completed Unive rsity of PFIZER VACCINE 00:00:00 [facility] Branch SARS-COV-2 COVID-19 2021-04-01 Completed Unive rsity of PFIZER VACCINE 00:00:00 [facility] Branch SARS-COV-2 COVID-19 2021-04-01 Completed Unive rsity of PFIZER VACCINE 00:00:00 [facility] Branch SARS-COV-2 COVID-19 2021-04-01 Completed Unive rsity of PFIZER VACCINE 00:00:00 [facility] Branch SARS-COV-2 COVID-19 2020-09-25 Completed Unive rsity of PFIZER VACCINE 00:00:00 [facility] Branch SARS-COV-2 COVID-19 2020-09-25 Completed Unive rsity of PFIZER VACCINE 00:00:00 [facility] Branch SARS-COV-2 COVID-19 2020-09-25 Completed Unive rsity of PFIZER VACCINE 00:00:00 [facility] Branch SARS-COV-2 COVID-19 2020-09-25 Completed Unive rsity of PFIZER VACCINE 00:00:00 [facility] Branch SARS-COV-2 COVID-19 2020-09-25 Completed Unive rsity of PFIZER VACCINE 00:00:00 [facility] Branch SARS-COV-2 COVID-19 2020-09-25 Completed Unive rsity of PFIZER VACCINE 00:00:00 [facility] Branch SARS-COV-2 COVID-19 2020-09-25 Completed Unive rsity of PFIZER VACCINE 00:00:00 [facility] Branch SARS-COV-2 COVID-19 2020-09-25 Completed Unive rsity of PFIZER VACCINE 00:00:00 [facility] Branch SARS-COV-2 COVID-19 2020-09-25 Completed Unive rsity of PFIZER VACCINE 00:00:00 [facility] SARS-COV-2 COVID-19 2020-09-25 Completed Unive rsity of PFIZER VACCINE 00:00:00 [facility] SARS-COV-2 COVID-19 2020-09-25 Completed Unive rsity of PFIZER VACCINE 00:00:00 [facility] Branch SARS-COV-2 COVID-19 2020-09-25 Completed Unive rsity of PFIZER VACCINE 00:00:00 [facility] Branch SARS-COV-2 COVID-19 2020-08-28 Completed Unive rsity of PFIZER VACCINE 00:00:00 [facility] Branch SARS-COV-2 COVID-19 2020-08-28 Completed Unive rsity of PFIZER VACCINE 00:00:00 [facility] Branch SARS-COV-2 COVID-19 2020-08-28 Completed Unive rsity of PFIZER VACCINE 00:00:00 [facility] Branch SARS-COV-2 COVID-19 2020-08-28 Completed Unive rsity of PFIZER VACCINE 00:00:00 [facility] SARS-COV-2 COVID-19 2020-08-28 Completed Unive rsity of PFIZER VACCINE 00:00:00 [facility] SARS-COV-2 COVID-19 2020-08-28 Completed Unive rsity of PFIZER VACCINE 00:00:00 [facility] Branch SARS-COV-2 COVID-19 2020-08-28 Completed Unive rsity of PFIZER VACCINE 00:00:00 [facility] [facility] SARS-COV-2 COVID-19 2020-08-28 Completed Unive rsity of PFIZER VACCINE 00:00:00 [facility] [facility] SARS-COV-2 COVID-19 2020-08-28 Completed Unive rsity of PFIZER VACCINE 00:00:00 [facility] [facility] SARS-COV-2 COVID-19 2020-08-28 Completed Unive rsity of PFIZER VACCINE 00:00:00 [facility] [facility] SARS-COV-2 COVID-19 2020-08-28 Completed Unive rsity of PFIZER VACCINE 00:00:00 [facility] [facility] SARS-COV-2 COVID-19 2020-08-28 Completed Unive rsity of PFIZER VACCINE 00:00:00 [facility] Vital Signs Vital Name Observation Time Observation Value Comments Source Systolic blood 2020-11-19 15:19:00 169 mm[Hg] Univer sity of pressure [facility] Diastolic blood 2020-11-19 15:19:00 82 mm[Hg] Unive rsity of pressure [facility] Heart rate 2020-11-19 15:19:00 61 /min Universi ty of [facility] Body height 2020-11-19 15:17:00 157.5 cm Universi ty of [facility] Body weight 2020-11-19 15:17:00 91.173 kg Universi ty of [facility] BMI 2020-11-19 15:17:00 36.76 kg/m2 Universi ty of [facility] Systolic blood 2020-10-30 15:11:00 161 mm[Hg] Univer sity of pressure [facility] Diastolic blood 2020-10-30 15:11:00 78 mm[Hg] Unive rsity of pressure [facility] Heart rate 2020-10-30 15:11:00 60 /min Universi ty of [facility] Branch Respiratory rate 2020-10-30 15:11:00 18 /min Univ ersity of [facility] Body height 2020-10-30 15:11:00 157.5 cm Universi ty of [facility] Body weight 2020-10-30 15:11:00 91.173 kg Universi ty of [facility] BMI 2020-10-30 15:11:00 36.76 kg/m2 Universi ty of [facility] Procedures Procedure Date / Time Performing Clinician Source Performed SARS-COV-2 COVID-19 2021-11-30 19:53:35 [facility] Y[facility]+,0.3ML,IM [facility] (PFIZER - [place]) ASSIGNMENT OF BENEFITS 2021-10-28 21:27:51 Doctor Unassigned, [facility] [place] [facility] SARS-COV-2 COVID-19 2021-04-01 15:14:22 [facility]0.[facility],IM (PFIZER[facility] MEDICATION CORRESPONDENCE 2020-12-15 05:01:00 Doctor Unassigned, [facility] XR KNEE 3 VW RIGHT 2020-10-28 20:55:10 Jose C Mckeon [facility] ASSIGNMENT OF BENEFITS 2020-10-28 19:57:13 [facility] Plan of Care Planned Activity Planned Date Details Comments Source Future Scheduled 2023-01-04 65+ P[facility]OCOCCAL [facility] Test 23:17:56 VACCINE (1 - PCV) [code = 65+ PNEUMOCOCCAL VACCINE (1 - PCV)] Future Scheduled 2023-01-04 Hepatitis C screening [facility] Test 23:17:56 (procedure) [code = 646084240] Future Scheduled 2023-01-04 BREAST CANCER [facility] Test 23:17:56 SCREENING [code = BREAST CANCER SCREENING] Future Scheduled 2023-01-04 SHINGLES VACCINES (1 Met [facility] Test 23:17:56 of 2) [code = SHINGLES VACCINES (1 of 2)] Future Scheduled 2023-01-04 COVID-19 VACCINE (3 - Me [facility] Test 23:17:56 Pfizer series) [code = COVID-19 VACCINE (3 - Pfizer series)] Future Scheduled 2023-01-04 INFLUENZA VACCINE [facility] Test 23:17:56 [code = INFLUENZA VACCINE] Encounters Start End Encounter Admission Attending Care Care Encounter Source Date/Time Date/Time Type Type Clinicians Facility Department ID 2022-07-11 2022-07-11 Outpatient EDER FAIRCHILD [id number] [facility] 12:00:00 12:00:[address] [place] [address] 2022-02-10 2022-02-10 Outpatient AMBREEN_FAR [facility] [address] [place] 08:46:00 08:46:00 SUSI [id number] [facility] Outre h Program 2021-11-30 2021-11-30 Outpatient Noah GAINES [facility] [id number] Univers 10:30:00 10:30:00 VENKATA thompson [facility] 2021-11-30 2021-11-30 Imm/Inj Vaccine, [facility] [id number] Univers 10:30:00 10:30:00 Visit Venkata Gaines [id number] ity of [place] [id number] [facility] [id number] [address] 2021-10-28 2021-10-28 Outpatient R RADIOLOGY [facility] [id number] Univers 16:29:08 23:59:[address] [facility] Center 2021-10-28 2021-10-28 Hospital Radiology [facility] [id number] Univers 16:29:08 23:59:00 Encounter DEMOND 350.1.13.10 ity of [place] 4.2.7.2.686 [facility] [phone] [facility] [address] 2021-10-28 2021-10-28 Orders Doctor NORBERTO [id number] Univers 00:00:00 00:00:00 Only Unassigned, ELIA 350.1.13.10 ity of [place] [facility] 4.2.7.2.686 Elfego [phone] [facility] [address] 2021-04-01 2021-04-01 Outpatient Noah GAINES [facility] [id number] Univers 11:20:00 11:20:00 VENKATA thompson [facility] 2021-04-01 2021-04-01 Imm/Inj Nurse, Adc Pob Immunization [facility] [id number] [id number] Univers 10:11:56 10:12:16 Visit Venkata Gaines 350.1.13 .10 it[place] [phone] Me dical nal 421 [facility] 2021-01-25 2021-01-25 Outpatient PELUSE, [facility] [id number] [address] [place] 00:00:00 00:00:00 DENOMINATIONAL 814 Meth juan 2021-01-15 2021-01-15 Outpatient MAFFET, [facility] 399 [id number] [address] [place] 00:00:00 00:00:00 [place] [address] 2021-01-12 2021-01-12 Outpatient MAFFET, [facility] [id number] [place] 00:00:00 00:00:00 RICHMOND [address] i 2021-01-04 2021-01-04 Outpatient MAFFET, [facility] [id number] [place] 00:00:00 00:00:00 RICHMOND [address] 2020-12-15 2020-12-15 Telephone MARNIE Lazo 1.2.840.114 [id number] [facility] 00:00:00 00:00:00 [facility] [id number] it y of Surgical 4.2.7.2.686 [place] as Specialti [phone] Ny dical es 198 [facility] 2020-12-15 2020-12-15 Orders Doctor NORBERTO 1.2.840.[id number] [place] [address] 00:00:00 00:00:00 Only Unassigned, ELIA 350.1.13.10 ity of [place] [facility] 4.2.7.2.686 Elfego as [id number] [address] 2020-12-14 2020-12-14 Outpatient MAFFET, [facility] [id number] [place] 00:00:00 00:00:00 RICHMOND [address] 2020-12-11 2020-12-11 Outpatient MAFFET, [facility] [id number] [place] 00:00:00 00:00:00 RICHMOND [address] 2020-11-30 2020-11-30 Outpatient MAFFET, [facility] [id number] [address] [place] 00:00:00 00:00:00 RICHMOND [address] 2020-11-19 2020-11-19 Office MARNIE Lazo [id number] Univers 10:14:05 10:46:06 Visit [facility] 350.1.13.10 it y of Surgical 4.2.7.2.686 [place] as Specialti [phone] [facility] 198 [facility] 2020-11-19 2020-11-19 [facility] [id number] Univers 10:30:00 [facility]:30:[facility] 2020-10-[facility] 2020-10-30 [facility] [id number] Univers 10:03:30 10:54:08 Visit [facility] 350.1.13.10 it y of Surgical 4.2.7.2.686 [place] as Specialti [phone] [facility] 198 [facility] 2020-10-30 2020-10-30 [facility] [id number] Univers 10:00:00 10:00:00 [facility] 2020-10-28 2020-10-28 Hospital Radiology [facility] 1.2.840.114 [id number] Univers 15:27:20 23:59:00 Encounter Demond 350.1.13.10 ity of [place] 4.2.7.2.686 [facility] [phone] [facility] [address] 2020-10-28 2020-10-28 Outpatient R RADIOLOGY [facility] [id number] Univers 00:00:00 00:00:00 ity [facility] 2020-10-28 2020-10-28 Orders Doctor THORNTON 1.2.840.114 [id number] Univers 00:00:00 00:00:00 Only Unassigned, ELIA 350.1.13.10 ity of Community [facility] 4.2.7.2.686 [place] as [phone] [facility] [address] 2020-09-25 2020-09-25 [facility] [id number] Univers 10:10:00 10:10:00 RODO itricardo [facility] 2020-09-18 2020-09-18 [facility] [id number] Univers 10:10:00 10:10:00 RODO ricardo [facility] 2020-08-28 2020-08-28 Outpatient R BERNICE, [facility] [id number] Univers 09:40:00 09:40:00 RODO thompson [facility] 2020-07-21 2020-07-21 Outpatient DOMINY, [facility] [id number] [place] 00:00:00 00:00:00 CAMILA [address] 2020-07-10 2020-07-10 Outpatient DOMINY, [facility] [id number] [place] 00:00:00 00:00:00 CAMILA [address] 2020-06-23 2020-06-23 Outpatient DOMINY, [facility] [id number] [place] 00:00:00 00:00:00 CAMILA [address] 2020-06-12 2020-06-12 Outpatient DOMINY, [facility] [id number] [place] 00:00:00 00:00:00 CAMILA [address] 2020-05-26 2020-05-26 Outpatient DOMINY, [facility] [id number] [place] 00:00:00 00:00:00 CAMILA [address] 2020-05-26 2020-05-26 Outpatient DOMINY, [facility] [id number] [place] 00:00:00 00:00:00 CAMILA [address] 2020-01-14 2020-01-14 Outpatient DOMINY, [facility] [id number] [place] 00:00:00 00:00:00 CAMILA [address] 2020-01-07 2020-01-07 Outpatient DOMINY, [facility] [id number] [place] 00:00:00 00:00:00 CAMILA [address] 2020-01-02 2020-01-02 Outpatient DOMINY, [place] [id number] [place] 00:00:00 00:00:00 CAMILA [address] 2019-12-30 2019-12-30 Outpatient DOMINY, [facility] [id number] [place] 00:00:00 00:00:00 CAMILA [address] 2019-09-24 2019-09-24 Outpatient DOMINY, [facility] [id number] [place] 00:00:00 00:00:00 CAMILA [address] 2019-09-03 2019-09-03 Outpatient ANISA, [facility] [id number] [place] 00:00:00 00:00:00 CAMILA [address] 2019-09-03 2019-09-03 Outpatient ANISA, [facility] [id number] [place] 00:00:00 00:00:00 CAMILA [address] Results Test Description Test Time Test Comments Results Result Comments Source SARS-CoV-2 (COVID-19) RNA [Presence] in Respiratory sp ecimen by 2021-01-12 21:36:42 JEFFERSON with probe detection Test Item Value Reference Range Interpretation Comme nts SARS-CoV-2 (COVID-19) RNA [Presence] in Respiratory Not detected No t-Detected specimen by JEFFERSON with probe detection (test code = 57534-1) Whether patient is employed in a healthcare setting (test code = 16536-8) Whether the patient has symptoms related to condition of interest (test code = 45076-9) Patient was hospitalized because of this condition (test code = 96805-6) Whether the patient was admitted to intensive care unit (ICU) for condition of interest (test code = 76707-0) Whether patient resides in a congregate care setting (test code = 51692-3) [facility] VW [id number] 20:56:47 HISTORY: ?Pain. FINDINGS: AP, lateral, oblique views of right knee showed no acute fractureor dislocation. Mild changes of degenerative arthritis is noted in medialknee joint in the form of slightly narrowed joint space, mild subchondralsclerosis and small osteophytes along the articular edges of media lfemoral/tibial condyles. Minimal degenerative changes are seen in the upperand lower articular edges of the patella. No significant joint effusion.Note made of atherosclerosis with calcification in distal SFA, [place] proximal runoff arteries. 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 [facility], Radiant Results Inft User - 10/28/2020 3:57 PM CDTHISTORY: Pain.FINDINGS: AP, lateral, oblique views of right knee showed no acute fractureor dislocation. Mild changes of degenerative arthritis is noted in medialknee joint in the form of slightly narrowed joint space, mild subchondralsclerosis and small osteophytes along the articular edges of medialfemoral/tibial condyles. Minimal degenerative changes are seen in the upperand lower articular edges of the patella. 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 6720 (BEAKER) (test code = [facility] 1538) 43795 POCT-GLUCOSE [id number] 07:45:00 Test Item Value Reference Range Interpretation Comments POC-GLUCOSE METER 203 mg/dL 70-[address] [facility] 6720 (BEAKER) (test code = [facility] 1538) 91427 BASIC METABOLIC [id number] 02:30:00 Test Item Value Reference Range Interpretation [...] PATIEN TS. CBC W/PLT COUNT & AUTO [id number] 02:18:00 Test Item Value Reference Range Interpretation [...] L 0.00-0.20 (test code = 417) 0.00POCT-GLUCOSE [id number] 22:03:00 Test Item Value Reference Range Interpretation Comments POC-GLUCOSE METER 273 mg/dL 70-[address] [facility] 6720 (BEAKER) (test code = JAIME Zamora [place] 1538) [address] POCT-GLUCOSE [id number] 18:16:00 Test Item Value Reference Range Interpretation Comments POC-GLUCOSE METER 239 mg/dL 70-[address] [facility] 6720 (BEAKER) (test code = IRISMO Noah [place] 1538) 8[address] POCT-GLUCOSE [id number] 14:05:00 Test Item Value Reference Range Interpretation Comments POC-GLUCOSE METER 248 mg/dL 70-[address] [facility] 6720 (BEAKER) (test code = [facility] Noah [place] 1538) [address] SODIUM NA-STAT [id number] 10:03:00 Test Item Value Reference Range Interpretation Comments SODIUM (BEAKER) (test code = 381) 137 meq/L 135-148 POTASSIUM-STAT [id number] 10:03:00 Test Item Value Reference Range Interpretation Comments POTASSIUM (BEAKER) (test code = 3.8 meq/L 3.6-5.5 379) BLOOD GAS, [id number] 10:03:00 Test Item Value Reference Range Interpretation [...] (test code = 1819) 100.0 % GLUCOSE-STAT [id number] 10:03:00 Test Item Value Reference Range Interpretation Comments GLUCOSE RANDOM (BEAKER) (test code 174 mg/dL 70-110 H = 652) HGB/HCT (H&H) - STAT [id number] 10:03:00 Test Item Value Reference Range Interpretation Comments HEMOGLOBIN (BEAKER) (test code = 9.6 g/dL 12.0-15.0 L 410) HEMATOCRIT (BEAKER) (test code = 28.0 % 36.0-45.0 L 411) [id number] 09:50:00 Test Item Value Reference Range Interpretation Comments ACTIVATED CLOTTING TIME 204 sec TEST ED AT [facility] 6720 (BEAKER) (test code = [place] 441) [address] B-TYPE NATRIURETIC FACTOR (BNP)2017-01-09 11:46:00 Test Item Value Reference Range Interpretation Comments B-TYPE NATRIURETIC PEPTIDE (BEAKER) 155 pg/mL 0-100 H (test code = 700) BASIC METABOLIC [id number] 11:41:00 Test Item Value Reference Range Interpretation [...] S NOT APPLICABLE FOR DIALYSIS PATIEN TS. [id number] 11:41:00 Test Item Value Reference Range Interpretation Comments ALBUMIN (BEAKER) (test code = 1145) 4.2 g/dL 3.5-5.0 PROTHROMBIN TIME/[id number] 11:24:00 Test Item Value Reference Range Interpretation Comments PROTIME (BEAKER) (test code = 13.5 seconds 11.7-14.7 759) INR (BEAKER) (test code = 370) 1.0 <=5.9 RECOMMENDED COUMADIN/WARFARIN INR THERAPY RANGESSTANDARD DOSE: 2.0 - 3.0 Includes: PROPHYLAXIS for venous thrombosis, systemic embolization; TREATMENT for venous thrombosis and/or pulmonary embolus.HIGH RISK: Target INR is 2.5-3.5 for patients with mechanical heart valves.CBC W/PLT COUNT & AUTO [id number] 11:19:00 Test Item Value Reference Range Interpretation [...] NEUTROPHILS ABSOLUTE COUNT 5.06 K/ L 1.80-8.00 ([facility]) (test code = 670) LYMPHOCYTES ABSOLUTE COUNT 1.54 K/ L 1.48-4.50 ([facility]) (test code = 414) MONOCYTES ABSOLUTE COUNT ([facility]) 0.71 K/ L 0.00-1.30 (test code = 415) EOSINOPHILS ABSOLUTE COUNT 0.24 K/ L 0.00-0.50 ([facility]) (test code = 416) BASOPHILS ABSOLUTE COUNT ([facility]) 0.06 K/ L 0.00-0.20 (test code = 417) [id number] 10:57:00 Test Item Value Reference Range Interpretation Comments POC-CREATININE 0.8 mg/dL 0.6-1.3 TESTED AT [facility] 6720 ([facility]) (test [place] code = 1859) [address] POC-EGFR ([facility]) 71 mL/min/1.73M2 (test code = 8100)
[2023-01-07 19:06] LABS: Absolute Lymphocytes (CBC) 1.3 K/uL (0.7-4.9); Hematocrit 37.3 % (36.0-45.0); Lymphocytes % 14.1 % (15.3-44.8); MCV 84.7 fL (80-100); MPV 7.7 fL (7.6-11.3)
[2023-01-07] MEDS ORDERED: NA CHLORIDE 0.9% 1,000 ML ONE (19:15)
[2023-01-07 19:23] LABS: Albumin 3.6 g/dL (3.4-5.0); Bilirubin Total 0.5 mg/dL (0.2-1.0); Potassium 4.1 mEq/L (3.5-5.1); Protein, Total 7.2 g/dL (6.4-8.2); Troponin High Sensitivity 47.3 pg/mL (<58.9)
[2023-01-07 19:24] LABS: Specific Gravity 1.016 (1.005-1.030); Urine Bacteria None Seen /HPF (<20); Urine Bilirubin NEGATIVE (Negative); Urine Blood Negative (Negative); Urine Clarity Clear (Clear); Urine Color Light-Yellow (Yellow); Urine Glucose NEGATIVE (Negative); Urine Mucus Slight /HPF (None Seen); Urine Protein 3+ (Negative); Urine RBC <5 /HPF (None Seen); Urine Urobilinogen Normal (Normal); Urine pH 7.5 (5.0-7.0)
--- NOTE | 2023-01-07 20:15 | RAD REPORT ---
EXAM DESCRIPTION: CTAbdomen Pelvis W Contrast - 01/07/2023 7:52 pm CLINICAL HISTORY: ABD PAIN COMPARISON: Abdomen Pelvis W Contrast dated 06/25/2018; Chest Pa And Lat (2 Views) dated 11/05/2020 TECHNIQUE: CT of the abdomen and pelvis was performed. All CT scans are performed using dose optimization technique as appropriate and may include automated exposure control or mA/KV adjustment according to patient size. FINDINGS: Lower chest: Aortic valve prosthesis. Mitral annular calcifications Liver: No acute abnormality or suspicious lesions. Biliary: No biliary ductal dilatation. Stomach: No significant focal abnormality. Duodenum: No significant focal abnormality. Pancreas: No significant abnormality. Spleen: No significant abnormality. Adrenal: No suspicious lesions. Kidney/ureter: No hydronephrosis. No renal calculi. Retroperitoneum: No retroperitoneal adenopathy. Vascular: No aneurysm. Atherosclerosis Bowel: No significant focal abnormality. Normal appendix. Moderate colonic stool. Peritoneum: No ascites or free air. Small fat containing umbilical hernia . Bladder: Grossly unremarkable. Reproductive: No adnexal masses. Hysterectomy . Bones: No acute fracture. Other: n/a IMPRESSION: No acute intra-abdominal or pelvic finding. Normal appendix. Moderate colonic stool coul d indicate constipation. No urinary tract calculi.
--- NOTE | 2023-01-07 20:50 | ER ---
Nurse's Notes [facility] Name: Margo Valdovinos Age: 72 yrs Sex: Female : 1950 Arrival Date: 01/07/2023 Time: 17:38 Bed 19 Private MD: Diagnosis: Abdominal pain, Generalized;Constipation Presentation: 01/07 17:45 Chief complaint: Patient states: RLQ PAIN WITH N/V SINCE Y/D. Coronavirus screen: At bp this time, the client does not indicate any symptoms associated with coronavirus-19. Ebola Screen: No symptoms or risks identified at this time. Initial Sepsis Screen: Does the patient meet any 2 criteria? No. Patient's initial sepsis screen is negative. Does the patient have a suspected source of infection? No. Patient's initial sepsis screen is negative. Risk Assessment: Do you want to hurt yourself or someone else? Patient reports no desire to harm self or others. Onset of symptoms was January 06, 2023 at 17:00. 17:45 Method Of Arrival: Ambulatory bp 17:45 Acuity: NATALI 3 bp Triage Assessment: 17:45 General: Appears uncomfortable, Behavior is calm, cooperative, appropriate for age. bp Pain: Complains of pain in right lower quadrant. EENT: No deficits noted. Neuro: No deficits noted. Cardiovascular: No deficits noted. Respiratory: No deficits noted. GI: Reports lower abdominal pain, nausea, vomiting. : No signs and/or symptoms were reported regarding the genitourinary system. Derm: No deficits noted. Musculoskeletal: No deficits noted. Historical: - Allergies: 17:44 Sulfa (Sulfonamide Antibiotics); bp - Home Meds: 17:47 Lasix 40 mg Oral tablet daily [Active]; amitriptyline 25 mg Oral tab 1 tab once daily bp [Active]; aspirin 81 mg Oral TbEC 1 tab once daily [Active]; carvedilol 25 mg Oral tab 1 tab 2 times per day [Active]; folic acid 1 mg Oral tab 1 tab once daily [Active]; rosuvastatin 40 mg Oral tab 1 tab once daily [Active]; clopidogrel 75 mg Oral tab 1 tab once daily [Active]; ezetimibe 10 mg Oral 1 tab once daily [Active]; pantoprazole 40 mg Oral TbEC 1 tab once daily [Active]; hydroxychloroquine 200 mg Oral tab 1 tab once daily [Active]; Vitamin D3 2,000 unit Oral tab daily [Active]; Novolin 70/30 [place] Sub-Q [Active]; CoQ-10 100 mg Oral cap [Active]; Methotrexate (Anti-Rheumatic) Oral 2.5 mg [Active]; - PMHx: 17:44 CAD; DVT; Hyperlipidemia; Hypertension; Diabetes - IDDM; bp - PSHx: 17:44 Coronary artery bypass graft; Total abdominal hysterectomy; bp - Immunization history:: Adult Immunizations up to date. - Social history:: Smoking status: Patient denies any tobacco usage or history of. Screenin:15 [facility] ED Fall Risk Assessment (Adult) History of falling in the last 3 months, kl including since admission No falls in past 3 months (0 pts). [facility] ED Fall Risk Assessment (Adult) Confusion or Disorientation No (0 pts) Intoxicated or Sedated No (0 pts) Impaired Gait No (0 pts) Mobility Assist Device Used No (0 pt) Altered Elimination No (0 pt) Score/Fall Risk Level 0 - 2 = Low Risk Oriented to surroundings, Maintained a safe environment. Abuse screen: Denies threats or abuse. Nutritional screening: No deficits noted. Tuberculosis screening: No symptoms or risk factors identified. Assessment: 18:00 General: Appears in no apparent distress. uncomfortable, Behavior is calm, cooperative, eh3 appropriate for age. Pain: Complains of pain in right lower quadrant. Neuro: Level of Consciousness is awake, alert, obeys commands, Oriented to person, place, time, situation. Cardiovascular: Capillary refill < 3 seconds Patient's skin is warm and dry. Respiratory: Airway is patent Respiratory effort is even, unlabored, Respiratory pattern is regular, symmetrical. GI: Abdomen is round non-distended, Bowel sounds present X 4 quads. Abd is soft and non tender X 4 quads. : No signs and/or symptoms were reported regarding the genitourinary system. EENT: No signs and/or symptoms were reported regarding the EENT system. Derm: Skin is pink, warm \T\ dry. Musculoskeletal: No signs and/or symptoms reported regarding the musculoskeletal system. 19:00 Reassessment: Patient appears in no apparent distress at this time. Patient and/or eh3 family updated on plan of care and expected duration. Pain level reassessed. Patient is alert, oriented x 3, equal unlabored respirations, skin warm/dry/pink. Vital Signs: 17:45 BP 216 / 80; Pulse 70; Resp 16; Temp 98; Pulse Ox 98% ; bp 20:21 BP 212 / 73; Pulse 77; Resp 18; Pulse Ox 96% on R/A; kl 20:37 BP 198 / 80; kl ED Course: 17:40 Patient arrived in ED. ts1 17:42 Tawnya Gan FNP-C is PHCP. snw 17:42 Kevin Cotter MD is Attending Physician. snw 17:45 Arm band placed on. bp 17:46 Triage completed. bp 18:12 Lauren Pringle, RN is Primary Nurse. eh3 18:50 Inserted saline lock: 22 gauge in right antecubital area, using aseptic technique. eh3 Blood collected. 19:54 CT Abd/Pelvis - IV Contrast Only In Process Unspecified. EDMS 20:14 PHCP role handed off by Tawnya Gan FNP-C kb 20:14 Becki Valdovinos FNP-C is PHCP. kb 21:15 No provider procedures requiring assistance completed. IV discontinued, intact, kl bleeding controlled, No redness/swelling at site. Pressure dressing applied. Administered Medications: 21:14 Discontinued: NS 0.9% IV 1000 ml IV at 125 ml/hr continuous kl 19:00 Drug: NS 0.9% IV 1000 ml Route: IV; Rate: 125 ml/hr; Site: right antecubital; eh3 21:14 Follow up: IV Status: Order to discontinue infusion; IV Intake: 250ml kl 21:13 Drug: Dulcolax PO Delayed Release Tablet 5 mg Route: PO; kl Intake: 21:14 IV: 250ml; Total: 250ml. kl Outcome: 20:50 Discharge ordered by . kb 21:15 Patient left the ED. kl Signatures: Dispatcher [employer] EDMS Becki Valdovinos FNP-C FNP-Ckb Lewis, Kimberly, RN RN kl Waters, Shelly, FNP-C FNP-Csnw Peltier, Brian, RN RN bp Lauren Pringle RN RN 3 Perla Lynn PAS PAS ts1 Corrections: (The following items were deleted from the chart) 17:45 17:44 PMHx: Diabetes - NIDDM; bp bp 17:49 17:47 Home Meds: losartan-hydrochlorothiazide 50-12.5 mg Oral tab 1 tab once daily; bp bp 17:55 17:45 Pulse 70bpm; Resp 16bpm; Pulse Ox 98%; Temp 98F; bp bp
--- NOTE | 2023-01-07 20:51 | EDPHYS ---
Physician Documentation [facility] Name: Margo Valdovinos Age: 72 yrs Sex: Female : 1950 Arrival Date: 01/07/2023 Time: 17:38 Bed 19 Private MD: ED Physician Kevin Cotter HPI: 01/07 18:14 This 72 yrs old Female presents to ER via Ambulatory with complaints of Abdominal Pain, snw Nausea/Vomiting. 18:14 The patient presents with abdominal pain right lower quadrant. Onset: The snw symptoms/episode began/occurred acutely, 2 day(s) ago, and became persistent. The symptoms do not radiate. Associated signs and symptoms: Pertinent positives: nausea and vomiting. The symptoms are described as achy. Severity of pain: At its worst the pain was moderate. The patient has experienced a previous episode, last month. It is unknown whether or not the patient has recently seen a physician. sees Dr. Tsai. Historical: - Allergies: 17:44 Sulfa (Sulfonamide Antibiotics); bp - Home Meds: 17:47 Lasix 40 mg Oral tablet daily [Active]; amitriptyline 25 mg Oral tab 1 tab once daily bp [Active]; aspirin 81 mg Oral TbEC 1 tab once daily [Active]; carvedilol 25 mg Oral tab 1 tab 2 times per day [Active]; folic acid 1 mg Oral tab 1 tab once daily [Active]; rosuvastatin 40 mg Oral tab 1 tab once daily [Active]; clopidogrel 75 mg Oral tab 1 tab once daily [Active]; ezetimibe 10 mg Oral 1 tab once daily [Active]; pantoprazole 40 mg Oral TbEC 1 tab once daily [Active]; hydroxychloroquine 200 mg Oral tab 1 tab once daily [Active]; Vitamin D3 2,000 unit Oral tab daily [Active]; Novolin 70/30 [place] Sub-Q [Active]; CoQ-10 100 mg Oral cap [Active]; Methotrexate (Anti-Rheumatic) Oral 2.5 mg [Active]; - PMHx: 17:44 CAD; DVT; Hyperlipidemia; Hypertension; Diabetes - IDDM; bp - PSHx: 17:44 Coronary artery bypass graft; Total abdominal hysterectomy; bp - Immunization history:: Adult Immunizations up to date. - Social history:: Smoking status: Patient denies any tobacco usage or history of. ROS: 18:14 Constitutional: Negative for fever, chills, and weight loss, Eyes: Negative for injury, snw pain, redness, and discharge, ENT: Negative for injury, pain, and discharge, Neck: Negative for injury, pain, and swelling, Cardiovascular: Negative for chest pain, palpitations, and edema, Respiratory: Negative for shortness of breath, cough, wheezing, and pleuritic chest pain, Back: Negative for injury and pain, : Negative for injury, bleeding, discharge, and swelling, MS/Extremity: Negative for injury and deformity, Skin: Negative for injury, rash, and discoloration, Neuro: Negative for headache, weakness, numbness, tingling, and seizure, Psych: Negative for depression, anxiety, suicide ideation, homicidal ideation, and hallucinations. 18:14 Abdomen/GI: Positive for abdominal pain, nausea, vomiting. Exam: 18:13 Constitutional: This is a well developed, well nourished patient who is awake, alert, snw and in no acute distress. Head/Face: Normocephalic, atraumatic. Eyes: Pupils equal round and reactive to light, extra-ocular motions intact. Lids and lashes normal. Conjunctiva and sclera are non-icteric and not injected. Cornea within normal limits. Periorbital areas with no swelling, redness, or edema. ENT: Nares patent. No nasal discharge, no septal abnormalities noted. Tympanic membranes are normal and external auditory canals are clear. Oropharynx with no redness, swelling, or masses, exudates, or evidence of obstruction, uvula midline. Mucous membranes moist. Neck: Trachea midline, no thyromegaly or masses palpated, and no cervical lymphadenopathy. Supple, full range of motion without nuchal rigidity, or vertebral point tenderness. No Meningismus. Chest/axilla: Normal chest wall appearance and motion. Nontender with no deformity. No lesions are appreciated. Cardiovascular: Regular rate and rhythm with a normal S1 and S2. No gallops, murmurs, or rubs. Normal PMI, no JVD. No pulse deficits. Respiratory: Lungs have equal breath sounds bilaterally, clear to auscultation and percussion. No rales, rhonchi or wheezes noted. No increased work of breathing, no retractions or nasal flaring. Back: No spinal tenderness. No costovertebral tenderness. Full range of motion. Skin: Warm, dry with sluggish turgor. Normal color with no rashes, no lesions, and no evidence of cellulitis. MS/ Extremity: Pulses equal, no cyanosis. Neurovascular intact. Full, normal range of motion. Neuro: Awake and alert, GCS 15, oriented to person, place, time, and situation. Cranial nerves II-XII grossly intact. Motor strength 5/5 in all extremities. Sensory grossly intact. Cerebellar exam normal. Normal gait. Psych: Awake, alert, with orientation to person, place and time. Behavior, mood, and affect are within normal limits. 18:13 Abdomen/GI: Inspection: abdomen appears normal, Bowel sounds: normal, Palpation: mild abdominal tenderness, in the right lower quadrant. Vital Signs: 17:45 BP 216 / 80; Pulse 70; Resp 16; Temp 98; Pulse Ox 98% ; bp 20:21 BP 212 / 73; Pulse 77; Resp 18; Pulse Ox 96% on R/A; kl 20:37 BP 198 / 80; kl MDM: 17:42 Patient medically screened. snw 20:15 Data reviewed: vital signs, nurses notes. Counseling: I had a detailed discussion with snw the patient and/or guardian regarding: the historical points, exam findings, and any diagnostic results supporting the discharge/admit diagnosis, lab results, the need for outpatient follow up, for definitive care. Transition of care: After a detail discussion of the patient's case, care is transferred to Becki Valdovinos [facility]. 01/07 17:53 Order name: CBC with Diff; Complete Time: 19:15 snw 01/07 17:53 Order name: CMP; Complete Time: 19:24 snw 01/07 17:53 Order name: Lipase; Complete Time: 19:24 snw 01/07 17:53 Order name: Urinalysis w/ reflexes; Complete Time: 19:24 snw 01/07 17:53 Order name: Troponin High Sensitivity; Complete Time: 19:24 snw 01/07 17:53 Order name: CT Abd/Pelvis - IV Contrast Only; Complete Time: 20:15 snw 01/07 17:53 Order name: EKG; Complete Time: 17:54 snw 01/07 17:53 Order name: IV Saline Lock; Complete Time: 19:06 snw 01/07 17:53 Order name: Labs collected and sent; Complete Time: : [facility] 01/07 17:53 Order name: EKG - Nurse/Tech; Complete Time: : [facility] 01/07 20:16 Order name: Vital Signs; Complete Time: 20:37 kb EC:42 Rate is 71 beats/min. Rhythm is regular. QRS interval is prolonged. No Q waves. snw Clinical impression: Right BBB. Administered Medications: 21:14 Discontinued: NS 0.9% IV 1000 ml IV at 125 ml/hr continuous kl 19:00 Drug: NS 0.9% IV 1000 ml Route: IV; Rate: 125 ml/hr; Site: right antecubital; 3 21:14 Follow up: IV Status: Order to discontinue infusion; IV Intake: 250ml 21:13 Drug: Dulcolax PO Delayed Release Tablet 5 mg Route: PO; Disposition: 01/08 09:34 Co-signature as Attending Physician, Kevin Cotter MD I reviewed the patient's care rn provided by the Advanced Practice Provider and agree with the diagnosis and treatment plan. Disposition Summary: 01/07/23 20:50 Discharge Ordered Location: Home kb Condition: Stable kb Diagnosis - Abdominal pain, Generalized kb - Constipation kb Followup: kb - With: Emergency Department - When: As needed - Reason: Worsening of condition Followup: kb - With: Private Physician - When: 2 - 3 days - Reason: Recheck today's complaints, Continuance of care, Re-evaluation by your physician Discharge Instructions: - Discharge Summary Sheet kb - Constipation, Adult, [id number] kb - Abdominal Pain, Adult, [id number] kb Forms: - Medication Reconciliation Form kb - Thank You Letter kb - Antibiotic Education kb - Prescription Opioid Use kb Signatures: Dispatcher [employer] EDBecki Campa, HYDRAULIC BULL RIVETER OPERATOR-C HYDRAULIC BULL RIVETER OPERATOR-Koki Farooq RN Tawnya Galeano FNP-C FNP-Kevin Orozco MD MD rn Peltier, Brian, RN RN bp Hall, Erin, RN RN 3 Corrections: (The following items were deleted from the chart) 01/07 17:45 17:44 PMHx: Diabetes - NIDDM; bp bp 17:49 17:47 Home Meds: losartan-hydrochlorothiazide 50-12.5 mg Oral tab 1 tab once daily; bp bp
[2023-01-07] MEDS ORDERED: BISACODYL E.C. 5 MG TAB PO ONE (21:08)
[2023-01-07 22:39] VITALS: TEMP 98
[2023-01-07 22:42] VITALS: O2SAT 96
[2023-01-07 22:43] VITALS: BP 198/80
--- NOTE | 2023-01-09 12:07 | EKG ---
Test Date: 2023-01-07 Test Time: 18:38:58 Patient Financial Advocate: HAILEY MEASUREMENT RESULTS: Intervals: Rate: 71 GA: 158 QRSD: 160 QT: 434 QTc: 471 [place]: P: 61 GA: 158 QRS: 71 T: 51 INTERPRETIVE STATEMENTS: Normal sinus rhythm Right bundle branch block Abnormal ECG Compared to ECG 11/05/2020 10:36:04 Sinus bradycardia no longer present Electronically Signed On 01-09-23 12:01:02 CDT by Ciaran Torres
== END 2023-01-07 21:15 | disposition home or self-care (01) ==
LOC: ER 17:38
DX: K59.00 Constipation, unspecified (principal); R11.2 Nausea with vomiting, unspecified; E11.9 Type 2 diabetes mellitus without complications; I10 Essential (primary) hypertension; Z95.1 Presence of aortocoronary bypass graft; Z79.82 Long term (current) use of aspirin; Z79.4 Long term (current) use of insulin; Z88.2 Allergy status to sulfonamides
CPT/HCPCS: 96361; 93005; 85025; 81001; 36415; 84484; 83690; 80053; 74177; 96360; 99284; Q9967; J7030

== ENCOUNTER 2024-05-02 07:33 | Day surgery (SDC) | payer OTHER ==
--- NOTE | 2024-04-30 13:25 | RAD REPORT ---
EXAMINATION: ONE VIEW CHEST XR CLINICAL INDICATION: Female, 74 years old.,PREPROCEDURE SCREENING. Hypertension, history of open hear t surgery. TECHNIQUE: Frontal chest projection is submitted. Examination is limited by patient positioning and t echnique. COMPARISON: 11/05/2020 FINDINGS: Decreased inspiratory effort limits evaluation. Right perihilar streaky opacities, stable suggesting atelectasis. The lungs are well inflated and clear. No pneumothorax or sizable effusion. The heart is normal in size. Postsurgical changes of median sternotomy and mediastinal clips again seen. IMPRESSION: No acute intrathoracic abnormalities. Stable findings as above.
[2024-04-30 13:55] LABS: Anion Gap 20.7 mEq/L (5.0-15.0); BUN Blood Urea Nitrogen 25 mg/dL (7-18); Bicarbonate 16 mEq/L (21-32); Glomerular Filtration Rate 61 ml/min (=/>90); Glucose Level 88 mg/dL (74-106); Potassium 4.7 mEq/L (3.5-5.1); Sodium Level 138 mEq/L (136-145)
[2024-04-30 14:04] LABS: PT Prothrombin Time 11.7 SECONDS (9.4-12.5); Protime INR 1.05
--- NOTE | 2024-05-01 12:58 | EKG ---
Test Date: 2024-04-30 Test Time: 12:47:45 Global Sales Executive: LEANNE MEASUREMENT RESULTS: Intervals: Rate: 65 DE: 166 QRSD: 158 QT: 430 QTc: 447 [place]: P: 19 DE: 166 QRS: 49 T: 12 INTERPRETIVE STATEMENTS: Normal sinus rhythm Right bundle branch block Abnormal ECG Compared to ECG 01/07/2023 18:38:58 No significant changes Electronically Signed On 05-01-24 12:54:46 CDT by Jose Angel Michele
[2024-05-02] MEDS ORDERED: NA CHLORIDE 0.9% 500 ML ONE (08:01)
[2024-05-02 08:20] LABS: Absolute Eosinophils 0.2 K/uL (0-0.5); Absolute Lymphocytes (CBC) 1.1 K/uL (0.7-4.9); Absolute Monocytes 0.8 K/uL (0.1-1.3); Absolute Neutrophil 3.9 K/uL (1.8-8.0); Basophils % 0.8 % (0-1.3); Eosinophils % 2.8 % (0-4.4); Hematocrit 32.9 % (36.0-45.0); Hemoglobin 10.7 g/dL (12.0-15.0); Lymphocytes % 18.9 % (15.3-44.8); MCH 28.1 pg (27.0-35.0); MCHC 32.4 g/dL (32.0-36.0); MCV 86.6 fL (80-100); MPV 7.6 fL (7.6-11.3); Monocytes % 12.9 % (3.3-12.3); Neutrophils % 64.6 % (41.7-73.7); Platelets 225 thou/uL (152-406); Red Cell Distribution Width 16.2 % (12.1-15.2)
[2024-05-02] MEDS ORDERED: HEPA 1000U/500MLS 2,000 UNIT/1,000 ML BAG IV ONE (10:06)
[2024-05-02] MEDS ORDERED: LIDOCAINE 1% 20 ML MDV ONE (10:07)
[2024-05-02] MEDS ORDERED: ATROPINE SULF 1 MG/10 ML SYR IV ONE (10:10)
[2024-05-02] MEDS ORDERED: HEPARIN 10,000 UNIT/10 ML VIAL IV ONE (10:11)
[2024-05-02] MEDS ORDERED: MIDAZOLAM HCL 2 MG/2 ML INJ ONE (10:12)
[2024-05-02] MEDS ORDERED: FENTANYL CITR 100 MCG/2 ML ONE (10:12)
[2024-05-02] MEDS ORDERED: TICAGRELOR 90 MG TABLET PO ONE (10:36)
[2024-05-02] MEDS ORDERED: CLOPIDOGREL 75 MG TABLET ONE (10:36)
[2024-05-02] MEDS ORDERED: HYDRALAZINE HCL 20 MG/ML VIAL ONE ×2 (11:57→13:43)
[2024-05-02] MEDS: CLOPIDOGREL 75 MG TABLET PO ONE (12:30)
[2024-05-02 14:52] VITALS: TEMP 97.2
[2024-05-02] MEDS ORDERED: ONDANSETRON 4 MG/2 ML VIAL ONE (15:05)
--- NOTE | 2024-05-02 16:00 | OP ---
Date of Procedure: 05/02/2024 Surgeon: Jose Angel Michele Procedures Performed: 1.Selective coronary angiogram with bypass graft. 2.PCI of the RCA with Synergy 3.5 x 24 mm drug-eluting stent overlapped with another Synergy 3.5 x 8 mm drug-eluting stent. Indication For Procedure: Chest pain, drop in ejection fraction, abnormal stress test. Complications: None. Estimated Blood Loss: Less than 50 cc. Access: Right common femoral artery, closed by Angio-Seal. Sedation Time: 40 minutes, with 2 of Versed and 100 of fentanyl. Description Of Procedure: After risks, and benefits, and alternatives were explained to patient, pat ient agreed to proceed with the procedure and signed informed consent. The patient was brought back into the laboratory equipment installer, prepped and draped in a sterile fashion. Time-out was performed. Sedation was ad ministered. Next, the right common femoral artery access was obtained. A JL4 catheter was advanced over a J-wire to the aortic root and selective angiogram of the left system was done and that was lat er exchanged for a JR4 catheter for trying to engage the RCA, but I was not able to engage, so that c atheter was pulled back to the SVG graft angiogram and that was later pulled back to the left subclav maisha artery, that was later exchanged for an IM catheter for the WRIGHT to LAD angiogram shot. This cat heter was later exchanged for a 3DRC catheter for the right coronary artery where angiogram of the [facility] coronary artery was done and this was later exchanged for a 3DRC guide to the RCA. A Runthrough wire was passed across the lesions, pre-dilated the lesions with an NC 3.0 mm balloon, followed by wo lverine 3.5 mm cutting balloon. Next, Synergy 3.5 x 24 mm drug-eluting stent was placed across the m id RCA. Angiogram shows distal edge still got like 60% disease and so that was covered by another Sy nergy 3.5 x 8 mm drug-eluting stent that was overlapped with a prior stent. Both stents were postdil ated with an NC 4.0 mm balloon. Final angiogram shows CARMEN-3 flow. The patient was heparinized duri ng the entire procedure. An ACT was therapeutic. At the end of procedure, catheter was removed over a J-wire. Sheath was removed. Angio-Seal applied. Hemostasis achieved and patient was moved back to Recovery in stable condition. Findings: 1.Left main normal. 2.LAD, mid occluded. 3.Left circ, proximal occluded. 4.RCA, mid 70% disease, status post PCI as above, distal mild luminal irregularities. Grafts: 1.WRIGHT to LAD is patent, but the distal LAD is small, diffuse 80% disease. 2.SVG to OM is patent. 3.SVG to RPDA is occluded. 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 Significant LAD and left circ disease with patent WRIGHT to LAD, but the LAD diffusely got 80% disease, no option for intervention and the SVG to OM is patent. Plan is aspirin 81 mg daily for life, and Brilinta 180 x1 was given in the laboratory equipment installer. The patient opal l be given Plavix 600 mg on discharge and continue Plavix 75 mg daily for 12 months. ROSS/ALEXIA Voice ID: [id number] Report ID: [id number]
[2024-05-02 16:04] VITALS: O2SAT 100
[2024-05-02 17:00] VITALS: BP 122/56
== END 2024-05-02 16:45 | disposition home or self-care (01) ==
LOC: PRE 07:33 → CCL 16:45
PROVIDERS: ATTEND Internal Medicine Interventional Cardiology
DX: I25.10 Atherosclerotic heart disease of native coronary artery without angina pectoris (principal); I25.810 Atherosclerosis of coronary artery bypass graft(s) without angina pectoris; I25.82 Chronic total occlusion of coronary artery; I11.0 Hypertensive heart disease with heart failure; I50.32 Chronic diastolic (congestive) heart failure; I35.0 Nonrheumatic aortic (valve) stenosis; I65.23 Occlusion and stenosis of bilateral carotid arteries; E11.9 Type 2 diabetes mellitus without complications; E78.2 Mixed hyperlipidemia; Z79.4 Long term (current) use of insulin; Z79.84 Long term (current) use of oral hypoglycemic drugs; Z79.899 Other long term (current) drug therapy; Z88.2 Allergy status to sulfonamides; Z82.49 Family history of ischemic heart disease and other diseases of the circulatory system
CPT/HCPCS: 93005; 85025; 80048; 36415 ×2; 85610; 82947; 85347 ×2; 85730; 71045; 93455; 76937; Q9967; G0269; C1725; C9600; J0360 ×2; J2001; J2250; J3010; J2405; J7040; C1874; 93459; 99152; J0461